=== PATIENT | male | born 1950 | race Caucasian/White ===

== ENCOUNTER 2023-11-12 15:31 | Inpatient (IN) | payer MEDICARE ==
--- NOTE | 2023-11-12 16:17 | ED ---
General Adult HPI - General Chief complaint: Dizziness Stated complaint: Dizziness-sent by Time Seen by Provider: 11/12/23 16:08 Source: patient Mode of arrival: wheelchair - History of Present Illness Initial comments: Dictation was produced using [employer] dictation software. please excuse any grammatical, word or spelling errors. Chief Complaint: 73-year-old male presents to the emergency department for 2 to 3 weeks of vertigo History of Present Illness: Patient 73-year-old male he has been working with his primary care doctor regarding his dizziness. 2 weeks ago he was seen at [facility] for dizziness. He was discharged. He did follow-up with his primary care doctor. Primary care doctor instructed patient that if his dizziness did not get any better that he come to the emergency department. Patient had conversation with his PCP yesterday who then told him that he should come to the ER. Patient states that he has sensation of the room spinning at a ll times including at rest. Denies any headache. No numbness tingling paresthesias arms or legs. He has suffered a few falls where he did strike his head. Lives at home with 1 family member. Patient denies any nausea or vomiting. The ROS documented in this emergency department record has been reviewed and confirmed by me. Those systems with pertinent positive or negative responses have been documented in the HPI. All other systems are other negative and/or noncontributory. - Related Data Allergies Allergy/AdvReac Type Severity Reaction Status Date / Time No Known Allergies Allergy Verified 11/12/23 16:05 Review of Systems ROS Statement: Those systems with pertinent positive or pertinent negative responses have been documented in the HPI. ROS Other: All systems not noted in ROS Statement are negative. Past Medical History Past Medical History: Diabetes Mellitus, Hyperlipidemia, Hypertension History of Any Multi-Drug Resistant Organisms: None Reported Past Surgical History: Coronary Bypass/CABG Past Psychological History: No Psychological Hx Reported Smoking Status: Current every day smoker Past Alcohol Use History: None Reported Past Drug Use History: None Reported General Exam - General Exam Comments Initial Comments: PHYSICAL EXAM: General Impression: Alert and oriented x3, not in acute distress HEENT: Normocephalic atraumatic, extra-ocular movements intact, pupils equal and reactive to light bilaterally, mucous membranes moist. Cardiovascular: Heart regular rate and rhythm Chest: Able to complete full sentences, no retractions, no tachypnea Abdomen: abdomen soft, non-tender, non-distended, no organomegaly Musculoskeletal: Pulses present and equal in all extremities, no peripheral edema Motor: no focal deficits noted Neurological: CN II-XII grossly intact, no focal motor or sensory deficits noted, mild extremity ataxia, no nystagmus Skin: Intact with no visualized rashes Psych: Normal affect and mood Course Vital Signs 11/12/23 11/12/23 11/12/23 16:00 16:27 17:00 Temperature 98 F Pulse Rate 77 69 64 Respiratory 18 18 14 Rate Blood Pressure 131/80 146/87 142/87 O2 Sat by Pulse 99 99 96 Oximetry EKG Findings - EKG Comments: EKG Findings:: My EKG interpretation: Ventricular rate 71, sinus rhythm,. 198, QRS 100, QTc 397. Overall, this EKG is unremarkable Medical Decision Making - Medical Decision Making Was pt. sent in by a medical professional or institution (, PA, OUTSIDE INSTALLATION MACHINIST, urgent care, hospital, or custodial...) When possible be specific @ -No Did you speak to anyone other than the patient for history (EMS, parent, family, police, friend...)? What history was obtained from this source @ -No Did you review nursing and triage notes (agree or disagree)? Why? @ -I reviewed and agree with nursing and triage notes Were old charts reviewed (outside hosp., previous admission, EMS record, old EKG, old radiological studies, urgent care reports/EKG's, custodial records)? Report findings @ -No old charts were reviewed Differential Diagnosis (chest pain, altered mental status, abdominal pain women, abdominal pain men, vaginal bleeding, musculoskeletal, weakness, fever, dyspnea, syncope, headache, dizziness, GI bleed, back pain, seizure, CVA, palpatations, mental health)? @ -Differential Dizziness: Benign paroxysmal positional Vertigo, Menieres disease, otitis media, acoustic neuroma, vertebrobasilar insufficiency, cerebellar stroke, encephalitis, hypovolemic, arrhythmia, coronary artery syndrome, anemia, this is not meant to be an all-inclusive list EKG interpreted by me (3pts min.). @ -See above X-rays interpreted by me (1pt min.). @ -None done CT interpreted by me (1pt min.). @ -CT brain is unremarkable U/S interpreted by me (1pt. min.). @ -None done What testing was considered but not performed or refused? (CT, X-rays, U/S, labs)? Why? @ -None What meds were considered but not given or refused? Why? @ -None Did you discuss the management of the patient with other professionals (professionals i.e. , PA, OUTSIDE INSTALLATION MACHINIST, lab, RT, psych nurse, web content & social media manager, crocheter, teacher, unclaimed property officer, case aide)? Give summary @ -Case discussed with hospitalist for admission Was smoking cessation discussed for >3mins.? @ -No Was critical care preformed (if so, how long)? @ -No Were there social determinants of health that impacted care today? How? (Homelessness, low income, unemployed, alcoholism, drug addiction, transportation, low edu. Level, literacy, decrease access to med. care, halfway, rehab)? @ -No Was there de-escalation of care discussed even if they declined (Discuss DNR or withdrawal of care, Hospice)? DNR status @ -No What co-morbidities impacted this encounter? (DM, HTN, Smoking, COPD, CAD, Cancer, CVA, ARF, Chemo, Hep., AIDS, mental health diagnosis, sleep apnea, morbid obesity)? @ -None Was patient admitted / discharged? Hospital course, mention meds given and route, prescriptions, significant lab abnormalities, going to OR and other pertinent info. @ -73-year-old male presents to the emergency department with subacute vertigo. Vital signs are stable. Patient instructed to come to the emergency department by his primary care doctor for persistent symptoms. Patient symptoms have been ongoing for [address] brain is negative. Labs are unremarkable. There is concern of brainstem or cerebellar type process. Patient will be admitted observation consultation to neurology. Undiagnosed new problem with uncertain prognosis? @ -No Drug Therapy requiring intensive monitoring for toxicity (Heparin, Nitro, Insulin, Cardizem)? @ -No Were any procedures done? @ -No Diagnosis/symptom? Acute, or Chronic, or Acute on Chronic? Uncomplicated (without systemic symptoms) or Complicated (systemic symptoms)? @ -Vertigo Side effects of treatment? @ -No Exacerbation, Progression, or Severe Exacerbation? @ -No Poses a threat to life or bodily function? How? (Chest pain, [place], [place], pneumonia, PE, COPD, DKA, ARF, appy, cholecystitis, CVA, Diverticulitis, Homicidal, Suicidal, threat to staff... and all critical care pts) @ -yes - Lab Data Result diagrams: 11/12/23 16:24 11/12/23 16:24 Lab Results 11/12/23 11/12/23 11/12/23 Range/Units 16:24 16:24 16:24 WBC 7.6 (3.8-10.6) k/uL RBC 5.52 (4.30-5.90) m/uL Hgb 16.9 (13.0-17.5) gm/dL Hct 49.3 (39.0-53.0) % MCV 89.3 (80.0-100.0) fL MCH 30.6 (25.0-35.0) pg MCHC 34.3 (31.0-37.0) g/dL RDW 12.6 (11.5-15.5) % Plt Count 315 (150-450) k/uL MPV 7.1 Neutrophils % 62 % Lymphocytes % 26 % Monocytes % 8 % Eosinophils % 1 % Basophils % 1 % Neutrophils # 4.7 (1.3-7.7) k/uL Lymphocytes # 2.0 (1.0-4.8) k/uL Monocytes # 0.6 (0-1.0) k/uL Eosinophils # 0.1 (0-0.7) k/uL Basophils # 0.0 (0-0.2) k/uL PT 10.4 (10.0-12.5) sec INR 0.9 (<1.2) APTT 23.8 (22.0-30.0) sec Sodium 138 (137-145) mmol/L Potassium 4.1 (3.5-5.1) mmol/L Chloride 104 (98-107) mmol/L Carbon Dioxide 24 (22-30) mmol/L Anion Gap 10 mmol/L BUN 11 (9-20) mg/dL Creatinine 0.50 L (0.66-1.25) mg/dL Est GFR (CKD-EPI)AfAm >90 (>60 ml/min/1.73 sqM) Est GFR (CKD-EPI)NonAf >90 (>60 ml/min/1.73 sqM) Glucose 371 H (74-99) mg/dL Calcium 9.6 (8.4-10.2) mg/dL Magnesium 1.6 (1.6-2.3) mg/dL Total Bilirubin 0.8 (0.2-1.3) mg/dL AST 18 (17-59) U/L ALT 14 (4-49) U/L Alkaline Phosphatase 121 (38-126) U/L Total Protein 7.1 (6.3-8.2) g/dL Albumin 4.3 (3.5-5.0) g/dL Disposition Clinical Impression: Vertigo Disposition: ADMITTED IP TO THIS [facility] Condition: Fair Referrals: Jimmy Olivas MD [Primary Care Provider] - 1-2 days Decision Time: 17:28
[2023-11-12 16:36] LABS: Basophils % (A) 1 %; Eosinophils # (A) 0.1 k/uL (0-0.7); Eosinophils % (A) 1 %; HCT 49.3 % (39.0-53.0); HGB 16.9 gm/dL (13.0-17.5); Lymphocytes % (A) 26 %; MCH 30.6 pg (25.0-35.0); MCHC 34.3 g/dL (31.0-37.0); MCV 89.3 fL (80.0-100.0); Mean Platelet Volume 7.1; Monocytes # (A) 0.6 k/uL (0-1.0); Monocytes % (A) 8 %; Neutrophils # (A) 4.7 k/uL (1.3-7.7); Neutrophils % (A) 62 %; Platelet Count 315 k/uL (150-450); RBC 5.52 m/uL (4.30-5.90); RDW 12.6 % (11.5-15.5); WBC 7.6 k/uL (3.8-10.6)
[2023-11-12 16:44] LABS: ALT 14 U/L (4-49); AST 18 U/L (17-59); African American GFR (CKD) >90 (>60 ml/min/1.73 sqM); Albumin 4.3 g/dL (3.5-5.0); Alkaline Phosphatase 121 U/L (38-126); Anion Gap 10 mmol/L; Blood Urea Nitrogen 11 mg/dL (9-20); Calcium 9.6 mg/dL (8.4-10.2); Carbon Dioxide 24 mmol/L (22-30); Chloride 104 mmol/L (98-107); Glucose 371 mg/dL (74-99); Magnesium 1.6 mg/dL (1.6-2.3); Non-African American GFR(CKD) >90 (>60 ml/min/1.73 sqM); Potassium 4.1 mmol/L (3.5-5.1); Sodium 138 mmol/L (137-145); Total Bilirubin 0.8 mg/dL (0.2-1.3); Total Protein 7.1 g/dL (6.3-8.2)
[2023-11-12 16:46] LABS: INR 0.9 (<1.2); Partial Thromboplastin Time 23.8 sec (22.0-30.0); Prothrombin Time 10.4 sec (10.0-12.5)
--- NOTE | 2023-11-12 16:51 | CT ---
EXAMINATION TYPE: CT brain wo con DATE OF EXAM: 11/12/2023 COMPARISON: None HISTORY: Vertigo CT DLP: 1148.4 mGycm Automated exposure control for dose reduction was used. FINDINGS: : The ventricles, basal cisterns and sulci over the convexities are within normal limits for the patien t's age and there is no mass effect or shift of midline structures. There is mild decreased density in the periventricular white matter consistent with mild chronic isch emic white matter demyelination. There is no acute intra or extra-axial hemorrhage The posterior fossa including the brainstem, fourth ventricle and cerebellar pontine angles appear no rmal. Intraorbital contents appear normal and symmetric. Visualized paranasal sinuses and mastoid air cells are well aerated. The calvarium is intact. IMPRESSION: Mild age-appropriate senescent changes. There is no acute bleed or mass effect.
[2023-11-12] MEDS ORDERED: NALOXONE 0.4 MG/ML 1 ML VIAL IV PRN (17:24)
[2023-11-12 18:01] LABS: Glucose,Whole Blood 317 mg/dL (70-110)
[2023-11-12] MEDS: INSULIN REGULAR 100 UNIT/ML VIAL (IV) IV ONE (18:09)
[2023-11-12] MEDS ORDERED: DEXTROSE 50% SYRINGE 50 ML IVP PRN ×2 (18:59)
[2023-11-12] MEDS: SODIUM CHLORIDE 0.9% 1,000 ML IV SCH (19:11)
[2023-11-12 20:13] LABS: Glucose,Whole Blood 223 mg/dL (70-110)
[2023-11-12] MEDS: INSULIN ASPART (NovoLOG) 100 UNIT/ML VIAL SQ SCH (20:38)
[2023-11-12] MEDS: MECLIZINE 25 MG TAB PO SCH (20:39)
[2023-11-13 05:52] LABS: Glucose,Whole Blood 283 mg/dL (70-110)
[2023-11-13] MEDS: ACETAMINOPHEN TAB 325 MG TAB PO PRN (06:13)
[2023-11-13] MEDS: metFORMIN 500 MG TAB PO SCH (09:04)
[2023-11-13] MEDS: ATORVASTATIN 40 MG TAB PO SCH (09:04)
[2023-11-13] MEDS: CITALOPRAM HYDROBROMIDE 20 MG TAB PO SCH (09:04)
[2023-11-13] MEDS: buPROPion XL 300 MG TAB.ER.24H PO SCH (09:04)
[2023-11-13 12:41] LABS: Glucose,Whole Blood 342 mg/dL (70-110)
--- NOTE | 2023-11-13 13:24 | P.HPIM ---
History of Present Illness H&P Date: 11/13/23 History of present illness; patient 73-year-old gentleman who presented to the ER for persistent dizziness patient stated that dizziness started 2 weeks ago. Patient states that he gets a sensation of the whole room spinning around him, at that time patient went to [facility] where patient was evaluated and later discharged. Patient was told to follow-up with his PCP with whom he had an appointment recently and told him that if this dizziness persist that he should come back to the ER. Patient is still complaining of persistent dizziness 50% with rest or with exertion. Patient has had falls with trauma to his head. There is no complaint loss of consciousness. There is no complaint of weakness of any extremity. Denies any jerking movement of any extremity. Denies any hearing loss. There is no complaint of tinnitus. Because of dizziness patient came to the ER Initial lab work done in the ER showed WBC 7.6, hemoglobin 16.9, platelet count 315, sodium 138, potassium 4.1, BUN 11, creatinine 0.5 glucose 371 magnesium 1.6 EKG done in the ER showed heart rate of 71 , no ST segment elevation or depression seen, no T-wave inversions seen. CT head done showed no acute intracranial process, showed mild age-appropriate senescent changes Patient admitted to internal medicine service REVIEW OF SYSTEMS: CONSTITUTIONAL: No fever, no malaise, no fatigue. HEENT: No recent visual problems or hearing problems. Denied any sore throat. CARDIOVASCULAR: No chest pain, orthopnea, PND, no palpitations, no syncope. PULMONARY: No shortness of breath, no cough, no hemoptysis. GASTROINTESTINAL: No diarrhea, no nausea, no vomiting, no abdominal pain. NEUROLOGICAL: As mentioned HPI HEMATOLOGICAL: Denies any bleeding or petechiae. GENITOURINARY: Denies any burning micturition, frequency, or urgency. MUSCULOSKELETAL/RHEUMATOLOGICAL: Denies any joint pain, swelling, or any muscle pain. ENDOCRINE: Denies any polyuria or polydipsia. The rest of the 14-point review of systems is negative. PHYSICAL EXAMINATION: GENERAL: The patient is alert and oriented x3, not in any acute distress. Well developed, well nourished. HEENT: Pupils are round and equally reacting to light. EOMI. No scleral icterus. No conjunctival pallor. Normocephalic, atraumatic. No pharyngeal erythema. No thyromegaly. CARDIOVASCULAR: S1 and S2 present. No murmurs, rubs, or gallops. PULMONARY: Chest is clear to auscultation, no wheezing or crackles. ABDOMEN: Soft, nontender, nondistended, normoactive bowel sounds. No palpable organomegaly. MUSCULOSKELETAL: No joint swelling or deformity. EXTREMITIES: No cyanosis, clubbing, or pedal edema. NEUROLOGICAL: Gross neurological examination did not reveal any focal deficits. SKIN: No rashes. Assessment and plan Persistent dizziness NON insulin-dependent diabetes mellitus Hyperlipidemia Monitor vital signs Monitor CBC Monitor CMP Continue telemetry monitoring Continue neurochecks Check HbA1c level Monitor blood sugar levels, continue sliding scale insulin Resume Lipitor Ordered PT and OT Consult neurology Labs and medication were reviewed.. Continue same treatment. Continue with symptomatic treatment. Resume home medication. Monitor labs and vitals. DVT and GI prophylaxis. Further recommendations as per clinical course of the patient Dictation was produced using [employer] dictation software. please excuse any grammatical, word or spelling errors. Past Medical History Past Medical History: Diabetes Mellitus, Hyperlipidemia, Hypertension History of Any Multi-Drug Resistant Organisms: None Reported Past Surgical History: Coronary Bypass/CABG Past Psychological History: No Psychological Hx Reported Smoking Status: Current every day smoker Past Alcohol Use History: None Reported Past Drug Use History: None Reported Medications and Allergies Home Medications Medication Instructions Recorded Confirmed Type Citalopram Hydrobromide [CeleXA] 20 mg PO DAILY 11/12/23 11/12/23 History Rosuvastatin [Crestor] 20 mg PO DAILY 11/12/23 11/12/23 History buPROPion XL [Wellbutrin XL] 300 mg PO DAILY 11/12/23 11/12/23 History metFORMIN HCL [Glucophage] 1,000 mg PO DAILY 11/12/23 11/12/23 History Allergies Allergy/AdvReac Type Severity Reaction Status Date / Time No Known Allergies Allergy Verified 11/12/23 17:37 Physical Exam Vitals: Vital Signs Temp Pulse Pulse Resp BP BP Pulse Ox 11/13/23 07:20 97.5 F L 57 L 16 152/77 99 11/13/23 02:33 98.2 F 68 15 154/85 97 11/12/23 20:38 70 20 11/12/23 18:31 98.0 F 70 20 138/81 97 11/12/23 18:03 97.8 F 71 16 146/90 97 11/12/23 17:00 64 14 142/87 96 11/12/23 16:27 69 18 146/87 99 11/12/23 16:00 98 F 77 18 131/80 99 Intake and Output 11/12/23 11/13/23 11/13/23 22:59 06:59 14:59 Output Total 100 Balance -100 Output: Urine 100 Other: Voiding Method Urinal # Voids 2 Weight 74.843 kg Results CBC & Chem 7: 11/12/23 16:24 11/12/23 16:24 Labs: Abnormal Lab Results - Last 24 Hours (Table) 11/12/23 11/12/23 11/12/23 Range/Units 16:24 18:00 20:12 Creatinine 0.50 L (0.66-1.25) mg/dL Glucose 371 H (74-99) mg/dL POC Glucose (mg/dL) 317 H 223 H (70-110) mg/dL 11/13/23 Range/Units 05:51 Creatinine (0.66-1.25) mg/dL Glucose (74-99) mg/dL POC Glucose (mg/dL) 283 H (70-110) mg/dL Thrombosis Risk Factor Assmnt - Choose All That Apply Each Risk Factor Represents 2 Points: Age 61-74 years Thrombosis Risk Factor Assessment Total Risk Factor Score: 2 Thrombosis Risk Factor Assessment Level: Low Risk
[2023-11-13 17:19] LABS: Glucose,Whole Blood 178 mg/dL (70-110)
[2023-11-13] MEDS: ASPIRIN 325 MG TAB PO SCH (18:54)
--- NOTE | 2023-11-13 19:42 | CT ---
EXAMINATION TYPE: CT angio head neck CT DLP: 347.4 mGycm, Automated exposure control for dose reduction was used. DATE OF EXAM: 11/13/2023 7:05 PM COMPARISON: CT 11/12/2023, MRI 11/13/2023.. CLINICAL INDICATION:Male, 73 years old with history of Vertigo; PHH, Vertigo. TECHNIQUE: Axially acquired helical CT angiogram of the head and neck was obtained with contrast. Axi al images are supplemented with 3D reconstructions and MIP images which were post-processed at an in dependent workstation. NASCET criteria used. Contrast used:65ml mL of Isovue 370 with IV Contrast, Oral contrast used: None. FINDINGS: CTA HEAD: No evidence of acute intracranial hemorrhage, mass effect, or midline shift. The ventricles, sulci, a nd cisterns are unremarkable. The visualized portions of the internal carotid arteries, middle cerebral arteries, anterior cerebral arteries, and posterior cerebral arteries are patent. The basilar and vertebral arteries are patent. CTA NECK: Right Carotid System: The common carotid artery and external carotid artery are patent. The carotid bifurcation demonstrate s no evidence of hemodynamically significant stenosis. The remaining portions of the internal carotid artery demonstrate normal size without significant narrowing. Left Carotid System: The common carotid artery and external carotid artery are patent. The carotid bifurcation demonstrate s no evidence of hemodynamically significant stenosis. The remaining portions of the internal carotid artery demonstrate normal size without significant narrowing. Vertebral arteries are patent without evidence hemodynamically significant stenosis. There is a three-vessel aortic arch. The origins of the great vessels are patent. No evidence of hemo dynamically significant stenosis. Upper thorax: Mild emphysema changes in lung apices. IMPRESSION: 1. No evidence of dissection of the cervical internal carotid arteries or vertebral arteries or any e vidence of significant stenosis at the carotid bifurcations. 2. No evidence of intracranial high-grade stenosis or intracranial aneurysm.
[2023-11-13 20:37] LABS: Glucose,Whole Blood 243 mg/dL (70-110)
[2023-11-14 06:07] LABS: Glucose,Whole Blood 214 mg/dL (70-110)
--- NOTE | 2023-11-14 09:20 | P.CNNES ---
History of Present Illness Consult date: 11/13/23 Requesting physician: Roldan Washington Reason for Consult: Vertigo History of Present Illness: Patient is a 73-year-old right-handed male with history of hypertension, diabetes, tobacco use, came to the hospital on 11/09/2023 at 6:01 PM for new onset dizziness going on for the last 2 weeks. Patient states that he had fell about 3-4 times. He hit his head a couple times. Patient states that dizziness started first before the fall. Every time he moves, the head spins and he feels sick to the stomach. Any movement or even sometimes just sitting there makes him dizzy. It will last for about 30 seconds and it slowly fades out. Patient denies any slurred speech, facial droop or any focal numbness or tingling. 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 No focal numbness or any visual problems. He denies any recent flu, cold or problem with the sinuses. He does have some chronic tinnitus. Vital signs on arrival blood pressure 131/80, pulse 77 temperature 98.0. EKG shows sinus rhythm. CT head revealed age-related changes. No acute bleed or mass effect. I personally reviewed CT head, agree with the findings. Visualized paranasal sinuses and external auditory canals are clear. Blood test revealed normal CBC, PT PTT, normal CMP with elevated blood sugars around 370s range. Patient has smoked 1 pack/day for 50 years, still smokes. Patient has hypertension, diabetes for 5 years. He lives with his sister. He does have a daughter and 4 grandchildren. Review of Systems Constitutional: Denies chills, Denies fever Eyes: denies blurred vision, denies diplopia, denies pain, denies loss of vision Ears: bilateral: tinnitus, deny: decreased hearing, ear discharge, earache Ears, nose, mouth and throat: Reports vertigo, Denies headache, Denies nasal congestion, Denies sore throat Cardiovascular: Denies chest pain, Denies shortness of breath Respiratory: Denies cough, Denies excessive sputum Gastrointestinal: Reports nausea, Denies abdominal pain, Denies diarrhea, Denies vomiting Genitourinary: Denies dysuria, Denies incontinence, Denies urinary frequency Musculoskeletal: Denies low back pain, Denies neck pain Integumentary: Denies pruritus, Denies rash Neurological: Reports as per HPI Psychiatric: Reports anxiety, Reports depression Endocrine: Reports fatigue, Denies weight change Hematologic/Lymphatic: Denies easy bleeding, Denies easy bruising Past Medical History Past Medical History: Diabetes Mellitus, Hyperlipidemia, Hypertension History of Any Multi-Drug Resistant Organisms: None Reported Past Surgical History: Coronary Bypass/CABG Past Psychological History: No Psychological Hx Reported Smoking Status: Current every day smoker Past Alcohol Use History: None Reported Past Drug Use History: None Reported Medications and Allergies Home Medications Medication Instructions Recorded Confirmed Type Citalopram Hydrobromide [CeleXA] 20 mg PO DAILY 11/12/23 11/12/23 History Rosuvastatin [Crestor] 20 mg PO DAILY 11/12/23 11/12/23 History buPROPion XL [Wellbutrin XL] 300 mg PO DAILY 11/12/23 11/12/23 History metFORMIN HCL [Glucophage] 1,000 mg PO DAILY 11/12/23 11/12/23 History Allergies Allergy/AdvReac Type Severity Reaction Status Date / Time No Known Allergies Allergy Verified 11/12/23 17:37 Physical Examination - Vital Signs Vital Signs: Vital Signs Temp Pulse Pulse Resp BP BP Pulse Ox 11/13/23 13:30 97.9 F 61 16 138/81 99 11/13/23 07:20 97.5 F L 57 L 16 152/77 99 11/13/23 02:33 98.2 F 68 15 154/85 97 11/12/23 20:38 70 20 11/12/23 18:31 98.0 F 70 20 138/81 97 11/12/23 18:03 97.8 F 71 16 146/90 97 Intake and Output 11/13/23 11/13/23 11/13/23 06:59 14:59 22:59 Other: # Voids 2 Patient is an elderly male, in no acute distress. Patient is alert awake oriented to time place and person. Speech and language functions are normal. Patient can name and repeat very well. No aphasia or dysarthria. Attention, concentration and fund of knowledge is adequate. On cranial nerve examination, pupils are equal, round and reacting to light, visual [place] are full on confrontation, with no neglect on double simultaneous stimulation. Extraocular muscles are intact with no nystagmus. Face is symmetric, tongue protrudes to the midline. Palatal elevation and sensation normal, hearing is decreased for finger rubbing bilaterally and shoulder shrug normal, facial sensation normal. On muscle strength testing, there is no pronator drift and the strength is normal in arms and legs distally and proximally. Deep tendon reflexes are symmetric trace in the upper extremities, absent in the lower limbs and plantars are flat. Sensory to touch is equal with no neglect on double simultaneous stimulation. Cerebellar function showed no definitive ataxia for [id number] testing, although patient had slight dysmetria towards nose on the right and towards the finger on the left. No dysdiadochokinesia. Patient has mild dysmetria of the right lower extremity for [id number] testing, but not on the left. Tone and bulk of muscles normal. Gait deferred.. On general examination, there is no carotid bruit or murmur, S1-S2 audible. Chest is clear on consultation. Abdomen is soft nontender. No organomegaly, bowel sounds present. Peripheral pulses are present. No peripheral edema. Results - Laboratory Findings CBC and BMP: 11/12/23 16:24 11/12/23 16:24 Abnormal Lab Findings: Abnormal Labs 11/12/23 11/12/23 11/12/23 16:24 16:24 18:00 Creatinine 0.50 L Glucose 371 H POC Glucose (mg/dL) 317 H Hemoglobin A1c 11.3 H 11/12/23 11/13/23 11/13/23 20:12 05:51 12:39 Creatinine Glucose POC Glucose (mg/dL) 223 H 283 H 342 H Hemoglobin A1c 11/13/23 17:17 Creatinine Glucose POC Glucose (mg/dL) 178 H Hemoglobin A1c Assessment and Plan Assessment: * New onset vertigo with some positional component. Denies any aural symptoms or any recent upper respiratory infection. Rule out cerebellar CVA versus peripheral vestibular dysfunction. * Hypertension * Diabetes, poorly controlled * Tobacco use Plan: MRI of the brain without contrast, evaluate for acute CVA 2-D echo with bubble study to rule out PFO CTA head and neck revealed no evidence of dissection of the cervical internal carotid arteries, vertebral arteries or any evidence of significant stenosis at the carotid bifurcation. No evidence of intracranial high-grade stenosis or in tracranial aneurysm. Fasting a.m. lipid panel. Patient on Crestor 20 mg daily at home. In hospital patient placed on Lipitor 40 mg. Hemoglobin A1c 11.3, consistent with poorly controlled diabetes. Recommend optimize diabetes to target A1c <7.0. B12, folate Optimize control of blood pressure. Patient has multiple vascular risk factors. Patient to be started on aspirin 325 mg daily. Neuro checks every 4 hours. Telemetry monitoring rule out any arrhythmia PT, OT, evaluate gait. Recommend complete tobacco cessation. DVT prophylaxis: Heparin 5000 units subcu every [address] Sanju Concepcion will resume neurology service from Wednesday. Thank you for the consult.
[2023-11-14] MEDS: HEPARIN SODIUM,PORCINE 5,000 UNIT/ML 1 ML VIAL SQ SCH (10:19)
[2023-11-14 10:34] LABS: Chol/HDL Ratio 3.12 Ratio; LDL Cholesterol,Calculated 51.7 mg/dL (0.0-131.0)
[2023-11-14 12:22] LABS: Glucose,Whole Blood 223 mg/dL (70-110)
--- NOTE | 2023-11-14 13:03 | P.PN ---
Subjective Progress Note Date: 11/14/23 patient 73-year-old gentleman who presented to the ER for persistent dizziness patient stated that dizziness started 2 weeks ago. Patient states that he gets a sensation of the whole room spinning around him, at that time patient went to [facility] where patient was evaluated and later discharged. Patient was told to follow-up with his PCP with whom he had an appointment recently and told him that if this dizziness persist that he should come back to the ER. Patient is still complaining of persistent dizziness 50% with rest or with exertion. Patient has had falls with trauma to his head. There is no complaint loss of consciousness. There is no complaint of weakness of any extremity. Denies any jerking movement of any extremity. Denies any hearing loss. There is no complaint of tinnitus. Because of dizziness patient came to the ER Initial lab work done in the ER showed WBC 7.6, hemoglobin 16.9, platelet count 315, sodium 138, potassium 4.1, BUN 11, creatinine 0.5 glucose 371 magnesium 1.6 EKG done in the ER showed heart rate of 71 , no ST segment elevation or depression seen, no T-wave inversions seen. CT head done showed no acute intracranial process, showed mild age-appropriate senescent changes Patient admitted to internal medicine service 11/13. Patient seen and examined. Dizziness has improved. REVIEW OF SYSTEMS: CONSTITUTIONAL: No fever, no malaise,. CARDIOVASCULAR: No chest pain, no palpitations, no syncope. PULMONARY: No shortness of breath, no cough, GASTROINTESTINAL: No diarrhea, no nausea, no vomiting, no abdominal pain. NEUROLOGICAL: No headaches, no weakness, PHYSICAL EXAMINATION: GENERAL: The patient is alert and oriented x3, not in any acute distress. Well developed, well nourished. HEENT: Pupils are round and equally reacting to light. EOMI. No scleral icterus. No conjunctival pallor. Normocephalic, atraumatic. No pharyngeal erythema. No thyromegaly. CARDIOVASCULAR: S1 and S2 present. No murmurs, rubs, or gallops. PULMONARY: Chest is clear to auscultation, no wheezing or crackles. ABDOMEN: Soft, nontender, nondistended, normoactive bowel sounds. No palpable organomegaly. MUSCULOSKELETAL: No joint swelling or deformity. EXTREMITIES: No cyanosis, clubbing, or pedal edema. NEUROLOGICAL: Gross neurological examination did not reveal any focal deficits. SKIN: No rashes. Assessment and plan Persistent dizziness NON insulin-dependent diabetes mellitus Hyperlipidemia Monitor vital signs Monitor CBC Monitor CMP Continue telemetry monitoring Continue neurochecks MRI brain ordered Ordered 2D echo Continue aspirin and Lipitor Monitor blood sugar levels, continue sliding scale insulin Neurology following Labs and medication were reviewed.. Continue same treatment. Continue with symptomatic treatment. Resume home medication. Monitor labs and vitals. DVT and GI prophylaxis. Further recommendations as per clinical course of the patient Dictation was produced using [employer] dictation software. please excuse any grammatical, word or spelling errors. Objective - Vital Signs Vital signs: Vital Signs Temp 98.3 F 11/14/23 07:20 Pulse 53 L 11/14/23 07:20 Resp 16 11/14/23 07:20 BP 181/92 11/14/23 07:20 Pulse Ox 98 11/14/23 07:20 FiO2 Intake & Output 11/13/23 11/14/23 11/14/23 18:59 06:59 18:59 Intake Total 354 Output Total 380 150 Balance -380 -150 354 Intake: Oral 354 Output: Urine 380 150 Other: Voiding Method Urinal # Voids 2 - Labs CBC & Chem 7: 11/12/23 16:24 11/12/23 16:24 Labs: Abnormal Lab Results - Last 24 Hours (Table) 11/13/23 11/13/23 11/13/23 Range/Units 12:39 17:17 20:36 POC Glucose (mg/dL) 342 H 178 H 243 H (70-110) mg/dL HDL Cholesterol (40.00-60.00) mg/dL 11/14/23 11/14/23 Range/Units 05:56 06:05 POC Glucose (mg/dL) 214 H (70-110) mg/dL HDL Cholesterol 34.30 L (40.00-60.00) mg/dL
[2023-11-14 17:26] LABS: Glucose,Whole Blood 210 mg/dL (70-110)
[2023-11-14 20:19] LABS: Glucose,Whole Blood 301 mg/dL (70-110)
--- NOTE | 2023-11-15 01:15 | P.PN ---
Subjective Progress Note Date: 11/14/23 Patient was seen for a follow-up. Patient states that he is feeling slightly more dizzy, nauseated. He did not sleep well, worse than yesterday. No new numbness tingling or any focal weakness. Objective - Vital Signs Vital signs: Vital Signs Temp 98.3 F 11/14/23 07:20 Pulse 53 L 11/14/23 07:20 Resp 16 11/14/23 07:20 BP 181/92 11/14/23 07:20 Pulse Ox 98 11/14/23 07:20 FiO2 Intake & Output 11/13/23 11/14/23 11/14/23 18:59 06:59 18:59 Intake Total 354 Output Total 380 150 Balance -380 -150 354 Intake: Oral 354 Output: Urine 380 150 Other: Voiding Method Urinal # Voids 2 - Exam Examination unchanged. Patient's speech and language functions are normal. Cranial nerves are normal. Visual cartagena are full. Face is symmetric. On muscle strength testing there is no pronator drift. The strength is normal. Cerebellar function showed questionable ataxia in the lower limbs. - Labs CBC & Chem 7: 11/12/23 16:24 11/12/23 16:24 Labs: Abnormal Lab Results - Last 24 Hours (Table) 11/13/23 11/13/23 11/13/23 Range/Units 12:39 17:17 20:36 POC Glucose (mg/dL) 342 H 178 H 243 H (70-110) mg/dL HDL Cholesterol (40.00-60.00) mg/dL 11/14/23 11/14/23 Range/Units 05:56 06:05 POC Glucose (mg/dL) 214 H (70-110) mg/dL HDL Cholesterol 34.30 L (40.00-60.00) mg/dL Assessment and Plan Assessment: * New onset vertigo with some positional component. Denies any aural symptoms or any recent upper respiratory infection. Rule out cerebellar CVA versus peripheral vestibular dysfunction. * Hypertension * Diabetes, poorly controlled * Tobacco use Plan: MRI of the brain without contrast, evaluate for acute CVA 2-D echo with bubble study to rule out PFO CTA head and neck revealed no evidence of dissection of the cervical internal carotid arteries, vertebral arteries or any evidence of significant stenosis at the carotid bifurcation. No evidence of intracranial high-grade stenosis or intracranial aneurysm. Fasting a.m. lipid panel. Patient on Crestor 20 mg daily at home. In hospital patient placed on Lipitor 40 mg. Hemoglobin A1c 11.3, consistent with poorly controlled diabetes. Recommend optimize diabetes to target A1c <7.0. B12 497, folate 10.50 Optimize control of blood pressure. Patient has multiple vascular risk factors. Patient to be started on aspirin 325 mg daily. Neuro checks every 4 hours. Telemetry monitoring rule out any arrhythmia PT, OT, evaluate gait. Recommend complete tobacco cessation. DVT prophylaxis: Heparin 5000 units subcu every [address] Sanju Concepcion will resume neurology service from Wednesday.
[2023-11-15 05:47] LABS: Glucose,Whole Blood 158 mg/dL (70-110)
--- NOTE | 2023-11-15 11:17 | MR ---
EXAMINATION TYPE: MR brain wo con DATE OF EXAM: 11/15/2023 COMPARISON: NONE HISTORY: Worsening vertigo TECHNIQUE: T1-weighted sagittal, T2, FLAIR, and diffusion axial, and T2 coronal coronal views of the brain are submitted. FINDINGS: There is a 2 mm area of abnormal signal involving the right cerebellar peduncle\cerebellar vermis con sistent with a tiny focal area of acute ischemia.. Areas of abnormal signal involving the delmy are mo re typical of remote ischemic changes. Moderate generalized degenerative changes. Abnormal signal in the white matter is nonspecific but mos t typical of remote microvascular ischemia. No midline shift or mass effect. Craniocervical junction maintained. Partially empty sella turcica. Orbits are symmetric. Mild changes of chronic sinusitis. IMPRESSION: 1. There is a tiny punctate area of acute ischemia measuring 2 to 3 mm within the right cerebellar pe duncle\cerebellar vermis. Report called to patient's nurse 11:10 AM 11/15/2023.
--- NOTE | 2023-11-15 12:17 | CA ---
Transthoracic Echo Report Name: Bronson Ponce Age: 73 Gender: M : 1950 Exam Date: 11/15/2023 07:36 Exam Location: [facility] Ht (in): 70 Wt (lb): 165 Ordering Physician: Jessee Stevens MD Attending/Referring Phys: [employer]er Osmar Lorenz RDCS Procedure CPT: Indications: dizziness Cardiac Hx: Technical Quality: Technically difficult study Contrast 1: Definity Total Dose (mL): 2 Contrast 2: Total Dose (mL): MEASUREMENTS (Male / Female) Normal Values 2D ECHO LV Diastolic Diameter PLAX 3.3 cm 4.2 - 5.9 / 3.9 - 5.3 cm LV Systolic Diameter PLAX 2.2 cm IVS Diastolic Thickness 1.2 cm 0.6 - 1.0 / 0.6 - 0.9 cm LVPW Diastolic Thickness 1.2 cm 0.6 - 1.0 / 0.6 - 0.9 cm LV Relative Wall Thickness 0.7 LVOT Diameter 2.1 cm Aortic Root Diameter 4.3 cm LA Systolic Diameter LX 3.8 cm 3.0 - 4.0 / 2.7 - 3.8 cm LA Volume 40.1 cm??? 18 - 58 / 22 - 52 cm??? LA Volume Index 20.8 cm???/m??? 16 - 28 cm???/m??? DOPPLER AV Peak Velocity 92.6 cm/s AV Peak Gradient 3.4 mmHg AV Mean Velocity 66.8 cm/s AV Mean Gradient 1.9 mmHg AV Velocity Time Integral 19.4 cm LVOT Peak Velocity 107.5 cm/s LVOT Peak Gradient 4.6 mmHg LVOT Velocity Time Integral 18.5 cm LVOT Stroke Volume 62.0 cm??? LVOT Stroke Volume Index 32.2 ml/m??? LVOT Cardiac Index 1994.5 cm???/min???m??? AV Area Cont Eq vti 3.2 cm??? AV Area Cont Eq pk 3.9 cm??? Mitral E Point Velocity 65.8 cm/s Mitral A Point Velocity 91.0 cm/s Mitral E to A Ratio 0.7 MV Deceleration Time 378.9 ms MV E' Velocity 7.0 cm/s Mitral E to MV E' Ratio 9.4 TR Peak Velocity 183.6 cm/s TR Peak Gradient 13.5 mmHg PV Peak Velocity 81.9 cm/s PV Peak Gradient 2.7 mmHg FINDINGS Left Ventricle Left ventricular ejection fraction is estimated at 55-60 %. Normal left ventricular systolic function with no obvious regional wall motion abnormalities. Left ventricular cavity size normal. Mildly increased left ventricular wall thickness. Right Ventricle Normal right ventricular size. Unable to estimate the right ventricular systolic pressure. Right Atrium Normal right atrial size. Left Atrium Normal left atrial size. Mitral Valve Trace mitral regurgitation.mitral annular calcification. Aortic Valve No aortic regurgitation.aortic valve not well visualized. Tricuspid Valve Trace tricuspid regurgitation.structurally normal tricuspid valve. Pulmonic Valve Pulmonic valve not well visualized. Pericardium No pericardial effusion. Aorta Normal size aortic root. CONCLUSIONS Technically difficult study. Definity ECHO contrast used for improved visualization of the endocardial borders (inadequate visualization of two or more contiguous segments). Normal left ventricle size and systolic function Limited Doppler study with trace mitral and tricuspid regurgitation Previewed by: Dr. Dennis Fitzgerald MD (Electronically Signed) Final Date: 15 November 2023 12:17
[2023-11-15 12:26] LABS: Glucose,Whole Blood 201 mg/dL (70-110)
[2023-11-15] MEDS: ONDANSETRON 4 MG/2 ML VIAL IVP PRN (12:36)
--- NOTE | 2023-11-15 13:30 | P.PN ---
Subjective Progress Note Date: 11/15/23 patient 73-year-old gentleman who presented to the ER for persistent dizziness patient stated that dizziness started 2 weeks ago. Patient states that he gets a sensation of the whole room spinning around him, at that time patient went to [facility] where patient was evaluated and later discharged. Patient was told to follow-up with his PCP with whom he had an appointment recently and told him that if this dizziness persist that he should come back to the ER. Patient is still complaining of persistent dizziness 50% with rest or with exertion. Patient has had falls with trauma to his head. There is no complaint loss of consciousness. There is no complaint of weakness of any extremity. Denies any jerking movement of any extremity. Denies any hearing loss. There is no complaint of tinnitus. Because of dizziness patient came to the ER Initial lab work done in the ER showed WBC 7.6, hemoglobin 16.9, platelet count 315, sodium 138, potassium 4.1, BUN 11, creatinine 0.5 glucose 371 magnesium 1.6 EKG done in the ER showed heart rate of 71 , no ST segment elevation or depression seen, no T-wave inversions seen. CT head done showed no acute intracranial process, showed mild age-appropriate senescent changes Patient admitted to internal medicine service 11/13. Patient seen and examined. Dizziness has improved. 11/14. Patient seen and examined. MRI brain done showed tiny punctate area of acute ischemia within the right cerebellar peduncle/cerebellar vermis. 2D echo done showed normal left ventricular size systolic function, trace mitral and tricuspid regurg. States he feels better. REVIEW OF SYSTEMS: CONSTITUTIONAL: No fever, no malaise,. CARDIOVASCULAR: No chest pain, no palpitations, no syncope. PULMONARY: No shortness of breath, no cough, GASTROINTESTINAL: No diarrhea, no nausea, no vomiting, no abdominal pain. NEUROLOGICAL: No headaches, no weakness, PHYSICAL EXAMINATION: GENERAL: The patient is alert and oriented x3, not in any acute distress. Well developed, well nourished. HEENT: Pupils are round and equally reacting to light. EOMI. No scleral icterus. No conjunctival pallor. Normocephalic, atraumatic. No pharyngeal erythema. No thyromegaly. CARDIOVASCULAR: S1 and S2 present. No murmurs, rubs, or gallops. PULMONARY: Chest is clear to auscultation, no wheezing or crackles. ABDOMEN: Soft, nontender, nondistended, normoactive bowel sounds. No palpable organomegaly. MUSCULOSKELETAL: No joint swelling or deformity. EXTREMITIES: No cyanosis, clubbing, or pedal edema. NEUROLOGICAL: Gross neurological examination did not reveal any focal deficits. SKIN: No rashes. Assessment and plan Persistent dizziness Acute CVA NON insulin-dependent diabetes mellitus Hyperlipidemia Monitor vital signs Monitor CBC Monitor CMP Continue telemetry monitoring Continue neurochecks MRI brain done showed tiny punctate area of acute ischemia within the right cerebellar peduncle/cerebellar vermis 2D echo done showed normal left ventricular size systolic function, trace mitral and tricuspid regurg. Continue aspirin and Lipitor Monitor blood sugar levels, continue sliding scale insulin Neurology following Labs and medication were reviewed.. Continue same treatment. Continue with symptomatic treatment. Resume home medication. Monitor labs and vitals. DVT and GI prophylaxis. Further recommendations as per clinical course of the patient Dictation was produced using [employer] dictation software. please excuse any grammatical, word or spelling errors. Objective - Vital Signs Vital signs: Vital Signs Temp 98.2 F 11/15/23 08:25 Pulse 84 11/15/23 08:25 Resp 17 11/15/23 08:25 BP 152/92 11/15/23 08:25 Pulse Ox 96 11/15/23 08:25 FiO2 Intake & Output 11/14/23 11/15/23 11/15/23 18:59 06:59 18:59 Intake Total 590 540 118 Output Total 475 1200 600 Balance 115 660 482 Intake: Oral 590 540 118 Output: Urine 475 1200 600 Other: Voiding Method Urinal Urinal # Bowel Movements 1 - Labs CBC & Chem 7: 11/12/23 16:24 11/12/23 16:24 Labs: Abnormal Lab Results - Last 24 Hours (Table) 11/14/23 11/14/23 11/15/23 Range/Units 17:24 20:14 05:45 POC Glucose (mg/dL) 210 H 301 H 158 H (70-110) mg/dL 11/15/23 Range/Units 12:24 POC Glucose (mg/dL) 201 H (70-110) mg/dL
--- NOTE | 2023-11-15 15:40 | P.PN ---
Subjective Progress Note Date: 11/15/23 I'm seeing the patient for the first time during this admission. Please refer to Dr. Vicente's note for further details. According to patient he stated having dizziness for the past 3 weeks progressively getting worse. It started with resting now it's involving resting and movement. He feels nauseous but denies any vomiting. Denies any focal weakness, dysphagia, any speech difficulty, any numbness, any visual disturbance. Patient does have underlying history of diabetes, hypertension, CABG and smokes 1 pack a day. Denies any history of stroke in the past. Objective - Vital Signs Vital signs: Vital Signs Temp 98.2 F 11/15/23 08:25 Pulse 84 11/15/23 08:25 Resp 17 11/15/23 08:25 BP 152/92 11/15/23 08:25 Pulse Ox 96 11/15/23 08:25 FiO2 Intake & Output 11/14/23 11/15/23 11/15/23 18:59 06:59 18:59 Intake Total 590 540 118 Output Total 475 1200 600 Balance 115 -660 -482 Intake: Oral 590 540 118 Output: Urine 475 1200 600 Other: Voiding Method Urinal Urinal # Bowel Movements 1 - Exam GENERAL: The patient is lying in bed and is not in acute distress. NEUROLOGICAL: Higher mental function: The patient is awake, alert, oriented to self, place and time. Patient is following commands. No aphasia and no neglect. Cranial nerves: The pupils are round, equal and reactive to light. Visual [place] are full to confrontation throughout. Extraocular movement is intact no nystagmus is noted. Facial sensation is normal to touch throughout. The facial strength is normal throughout. Hearing is normal bilaterally to hand rub. Tongue is midline and moved [id number] without any difficulty. No dysarthria is noted. Shoulder shrug is normal bilaterally. Motor: The strength is 5 over 5 throughout. Normal tone and bulk. Cerebellum: Normal finger to nose heel to solomon bilaterally. Sensation: Sensation is normal to touch throughout. 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 Present with dizziness for past 3 weeks. No IV thrombolytic since outside the window and risk outweigh benefits. * Vertigo due to above. * Hypertension * Diabetes, poorly controlled * History of CABG * Tobacco use Plan: MR the brain is reported as there is tiny punctate area of acute ischemic measuring 2-3 mm with right cerebellar peduncle/cerebellar vermis. I personally reviewed MRI and I feel it's cerebellar peduncle. Patient to be started on aspirin 325 mg daily. I also start the patient on Plavix 75 mg daily. Patient to be on dual antiplatelets and after 21 days stop Plavix but continue aspirin indefinitely. 2-D echo with bubble study to rule out PFO CTA head and neck revealed no evidence of dissection of the cervical internal carotid arteries, vertebral arteries or any evidence of significant stenosis at the carotid bifurcation. No evidence of intracranial high-grade stenosis or intracranial aneurysm. Fasting a.m. lipid panel: Triglyceride of 105, cholesterol is 107, LDL is 51 and HDL is 34.. Patient on Crestor 20 mg daily at home. In hospital patient placed on Lipitor 40 mg. Hemoglobin A1c 11.3, consistent with poorly controlled diabetes. Recommend optimize diabetes to target A1c <7.0. I increase the meclizine from 25 mg 1 tablet 3 times a day to 4 times a day. B12 497, folate 10.50 Optimize control of blood pressure. Neuro checks every 4 hours. Telemetry monitoring rule out any arrhythmia PT, OT, evaluate gait. Recommend complete tobacco cessation. DVT prophylaxis: Heparin 5000 units subcu every 8 hours The plan discussed with the patient and his nurse Time with Patient: Less than 30
[2023-11-15] MEDS: CLOPIDOGREL 75 MG TAB PO SCH (16:06)
[2023-11-15 17:26] VITALS: BMI 22.4
[2023-11-15 17:43] LABS: Glucose,Whole Blood 197 mg/dL (70-110)
[2023-11-15] MEDS: MECLIZINE 25 MG TAB PO SCH (17:52)
[2023-11-15 20:24] LABS: Glucose,Whole Blood 208 mg/dL (70-110)
[2023-11-16 00:10] LABS: Appearance,Urine Cloudy (Clear); Bacteria,Urine Few /hpf; Bilirubin,Urine Negative (Negative); Blood,Urine Large (Negative); Calcium Oxalate Crystals,Urine Few /hpf; Color,Urine Light Red; Glucose,Urine (UA) 3+ (Negative); Hyaline Casts,Urine 8 /lpf (0-2); Ketones,Urine Negative (Negative); Leukocyte Esterase,Urine Trace (Negative); Mucus,Urine Rare /hpf; Nitrite,Urine Negative (Negative); Protein,Urine 1+ (Negative); RBC,Urine >182 /hpf (0-5); Specific Gravity,Urine 1.017 (1.001-1.035); Squamous Epithelial Cell,Urine <1 /hpf (0-4); Urobilinogen,Urine <2.0 mg/dL (<2.0); WBC,Urine 22 /hpf (0-5)
[2023-11-16 05:46] LABS: Glucose,Whole Blood 237 mg/dL (70-110)
[2023-11-16 11:37] LABS: Glucose,Whole Blood 202 mg/dL (70-110)
--- NOTE | 2023-11-16 13:16 | P.PN ---
Subjective Progress Note Date: 11/16/23 I am following-up with patient and he continues to be dizzy. Objective - Vital Signs Vital signs: Vital Signs Temp 97.4 F L 11/16/23 08:21 Pulse 59 L 11/16/23 11:47 Resp 16 11/16/23 11:47 BP 158/83 11/16/23 11:47 Pulse Ox 97 11/16/23 11:47 FiO2 Intake & Output 11/15/23 11/16/23 11/16/23 18:59 06:59 18:59 Intake Total 236 240 128 Output Total 600 600 Balance -364 -360 128 Weight 74.843 kg Intake: IV 10 Invasive Line 1 10 Oral 236 240 118 Output: Urine 600 600 Other: Voiding Method Urinal Urinal Urinal - Exam GENERAL: The patient is lying in bed and is not in acute distress. NEUROLOGICAL: Higher mental function: The patient is sleepy but is awakeable to voice. Is oriented to self, place and time. Patient is following commands. No aphasia and no neglect. Cranial nerves: The pupils are round, equal and reactive to light. Visual [place] are full to confrontation throughout. Extraocular movement is intact no nystagmus is noted. Facial sensation is normal to touch throughout. The facial strength is normal throughout. Hearing is normal bilaterally to hand rub. Tongue is midline and moved [id number] without any difficulty. No dysarthria is noted. Shoulder shrug is normal bilaterally. Motor: The strength is 5 over 5 throughout. Normal tone and bulk. Cerebellum: Normal finger to nose heel to solomon bilaterally. Sensation: Sensation is normal to touch throughout. - Labs CBC & Chem 7: 11/12/23 16:24 11/12/23 16:24 Labs: Abnormal Lab Results - Last 24 Hours (Table) 11/15/23 11/15/23 11/15/23 Range/Units 17:42 20:18 22:38 POC Glucose (mg/dL) 197 H 208 H (70-110) mg/dL Urine Protein 1+ H (Negative) Urine Glucose (UA) 3+ H (Negative) Urine Blood Large H (Negative) Ur Leukocyte Esterase Trace H (Negative) Urine RBC >182 H (0-5) /hpf Urine WBC 22 H (0-5) /hpf Calcium Oxalate Crystal Few H (None) /hpf Urine Bacteria Few H (None) /hpf Hyaline Casts 8 H (0-2) /lpf Urine Mucus Rare H (None) /hpf 11/16/23 11/16/23 Range/Units 05:42 11:36 POC Glucose (mg/dL) 237 H 202 H (70-110) mg/dL Urine Protein (Negative) Urine Glucose (UA) (Negative) Urine Blood (Negative) Ur Leukocyte Esterase (Negative) Urine RBC (0-5) /hpf Urine WBC (0-5) /hpf Calcium Oxalate Crystal (None) /hpf Urine Bacteria (None) /hpf Hyaline Casts (0-2) /lpf Urine Mucus (None) /hpf Assessment and Plan Assessment: * 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 Present with dizziness for past 3 weeks. No IV thrombolytic since outside the window and risk outweigh benefits. * Vertigo due to above. * Hypertension * Diabetes, poorly controlled * History of CABG * Tobacco use Plan: MR the brain is reported as there is tiny punctate area of acute ischemic measuring 2-3 mm with right cerebellar peduncle/cerebellar vermis. I personally reviewed MRI and I feel it's cerebellar peduncle. Patient to be started on aspirin 325 mg daily. I also start the patient on Plavix 75 mg daily. Patient to be on dual antiplatelets and after 21 days stop Plavix but continue aspirin indefinitely. 2-D echo with bubble study to rule out PFO CTA head and neck revealed no evidence of dissection of the cervical internal carotid arteries, vertebral arteries or any evidence of significant stenosis at the carotid bifurcation. No evidence of intracranial high-grade stenosis or intracranial aneurysm. Fasting a.m. lipid panel: Triglyceride of 105, cholesterol is 107, LDL is 51 and HDL is 34.. Patient on Crestor 20 mg daily at home. In hospital patient placed on Lipitor 40 mg. Hemoglobin A1c 11.3, consistent with poorly controlled diabetes. Recommend optimize diabetes to target A1c <7.0. I increased the meclizine from 25 mg 1 tablet 4 times a day to 50mg 1 tab 4 times a day. I started him on IV saline 75cc/hour. I gave him one time Valium 5mg for his vertigo. B12 497, folate 10.50 Optimize control of blood pressure. Neuro checks every 4 hours. Telemetry monitoring rule out any arrhythmia PT, OT, evaluate gait. Recommend complete tobacco cessation. DVT prophylaxis: Heparin 5000 units subcu every 8 hours The plan discussed with the patient and his nurse. Time with Patient: Less than 30
[2023-11-16] MEDS: SODIUM CHLORIDE 0.9% 1,000 ML IV SCH (13:24)
--- NOTE | 2023-11-16 13:39 | P.PN ---
Subjective Progress Note Date: 11/16/23 patient 73-year-old gentleman who presented to the ER for persistent dizziness patient stated that dizziness started 2 weeks ago. Patient states that he gets a sensation of the whole room spinning around him, at that time patient went to [facility] where patient was evaluated and later discharged. Patient was told to follow-up with his PCP with whom he had an appointment recently and told him that if this dizziness persist that he should come back to the ER. Patient is still complaining of persistent dizziness 50% with rest or with exertion. Patient has had falls with trauma to his head. There is no complaint loss of consciousness. There is no complaint of weakness of any extremity. Denies any jerking movement of any extremity. Denies any hearing loss. There is no complaint of tinnitus. Because of dizziness patient came to the ER Initial lab work done in the ER showed WBC 7.6, hemoglobin 16.9, platelet count 315, sodium 138, potassium 4.1, BUN 11, creatinine 0.5 glucose 371 magnesium 1.6 EKG done in the ER showed heart rate of 71 , no ST segment elevation or depression seen, no T-wave inversions seen. CT head done showed no acute intracranial process, showed mild age-appropriate senescent changes Patient admitted to internal medicine service 11/13. Patient seen and examined. Dizziness has improved. 11/14. Patient seen and examined. MRI brain done showed tiny punctate area of acute ischemia within the right cerebellar peduncle/cerebellar vermis. 2D echo done showed normal left ventricular size systolic function, trace mitral and tricuspid regurg. States he feels better. 11/15. Patient seen and examined. Still have a lot of dizziness, dose of Antivert increased to 50 mg 4 times daily, neurology also added 1 dose of Valium REVIEW OF SYSTEMS: CONSTITUTIONAL: No fever, no malaise,. CARDIOVASCULAR: No chest pain, no palpitations, no syncope. PULMONARY: No shortness of breath, no cough, GASTROINTESTINAL: No diarrhea, no nausea, no vomiting, no abdominal pain. NEUROLOGICAL: No headaches, no weakness, PHYSICAL EXAMINATION: GENERAL: The patient is alert and oriented x3, not in any acute distress. Well developed, well nourished. HEENT: Pupils are round and equally reacting to light. EOMI. No scleral icterus. No conjunctival pallor. Normocephalic, atraumatic. No pharyngeal erythema. No thyromegaly. CARDIOVASCULAR: S1 and S2 present. No murmurs, rubs, or gallops. PULMONARY: Chest is clear to auscultation, no wheezing or crackles. ABDOMEN: Soft, nontender, nondistended, normoactive bowel sounds. No palpable organomegaly. MUSCULOSKELETAL: No joint swelling or deformity. EXTREMITIES: No cyanosis, clubbing, or pedal edema. NEUROLOGICAL: Gross neurological examination did not reveal any focal deficits. SKIN: No rashes. Assessment and plan Persistent dizziness Acute CVA NON insulin-dependent diabetes mellitus Hyperlipidemia Monitor vital signs Monitor CBC Monitor CMP Continue telemetry monitoring Continue neurochecks MRI brain done showed tiny punctate area of acute ischemia within the right cerebellar peduncle/cerebellar vermis 2D echo done showed normal left ventricular size systolic function, trace mitral and tricuspid regurg. Continue aspirin and Plavix for 21 days followed by aspirin indefinitely Continue Lipitor dose of Antivert increased to 50 mg 4 times daily, neurology also added 1 dose of Valium Monitor blood sugar levels, continue sliding scale insulin, start Levemir 5 units twice a day Neurology following PT and OT consulted Labs and medication were reviewed.. Continue same treatment. Continue with symptomatic treatment. Resume home medication. Monitor labs and vitals. DVT and GI prophylaxis. Further recommendations as per clinical course of the patient Dictation was produced using [employer] dictation software. please excuse any grammatical, word or spelling errors. Objective - Vital Signs Vital signs: Vital Signs Temp 97.4 F L 11/16/23 08:21 Pulse 68 11/16/23 08:21 Resp 16 11/16/23 08:21 BP 158/96 11/16/23 08:21 Pulse Ox 100 11/16/23 08:21 FiO2 Intake & Output 11/15/23 11/16/23 11/16/23 18:59 06:59 18:59 Intake Total 236 240 10 Output Total 600 600 Balance -364 -360 10 Weight 74.843 kg Intake: IV 10 Invasive Line 1 10 Oral 236 240 Output: Urine 600 600 Other: Voiding Method Urinal Urinal Urinal - Labs CBC & Chem 7: 11/12/23 16:24 11/12/23 16:24 Labs: Abnormal Lab Results - Last 24 Hours (Table) 03/25/24 03/25/24 03/25/24 Range/Units 12:24 17:42 20:18 POC Glucose (mg/dL) 201 H 197 H 208 H (70-110) mg/dL Urine Protein (Negative) Urine Glucose (UA) (Negative) Urine Blood (Negative) Ur Leukocyte Esterase (Negative) Urine RBC (0-5) /hpf Urine WBC (0-5) /hpf Calcium Oxalate Crystal (None) /hpf Urine Bacteria (None) /hpf Hyaline Casts (0-2) /lpf Urine Mucus (None) /hpf 11/15/23 11/16/23 Range/Units 22:38 05:42 POC Glucose (mg/dL) 237 H (70-110) mg/dL Urine Protein 1+ H (Negative) Urine Glucose (UA) 3+ H (Negative) Urine Blood Large H (Negative) Ur Leukocyte Esterase Trace H (Negative) Urine RBC >182 H (0-5) /hpf Urine WBC 22 H (0-5) /hpf Calcium Oxalate Crystal Few H (None) /hpf Urine Bacteria Few H (None) /hpf Hyaline Casts 8 H (0-2) /lpf Urine Mucus Rare H (None) /hpf
[2023-11-16 16:59] LABS: Glucose,Whole Blood 263 mg/dL (70-110)
[2023-11-16] MEDS: MECLIZINE 25 MG TAB PO SCH (17:08)
[2023-11-16 20:02] LABS: Glucose,Whole Blood 247 mg/dL (70-110)
[2023-11-16] MEDS: INSULIN DETEMIR (LEVEMIR) 100 UNIT/ML SYR SQ SCH (21:03)
[2023-11-17 05:25] VITALS: RESP 16
[2023-11-17 05:57] LABS: Glucose,Whole Blood 128 mg/dL (70-110)
[2023-11-17 11:48] LABS: Glucose,Whole Blood 169 mg/dL (70-110)
--- NOTE | 2023-11-17 15:05 | P.PN ---
Subjective Progress Note Date: 11/17/23 I am following-up with patient and he feels dizziness is improving. Denies new neurological issues. Objective - Vital Signs Vital signs: Vital Signs Temp 98.2 F 11/17/23 08:57 Pulse 64 11/17/23 12:09 Resp 16 11/17/23 12:09 BP 147/71 11/17/23 12:09 Pulse Ox 96 11/17/23 12:09 FiO2 Intake & Output 11/16/23 11/17/23 11/17/23 18:59 06:59 18:59 Intake Total 1236 250 Output Total 350 1650 Balance 886 -1650 250 Intake: IV 20 10 Invasive Line 1 20 Invasive Line 2 10 Oral 1216 240 Output: Urine 350 1650 Other: Voiding Method Urinal Urinal Urinal # Voids 1 - Exam GENERAL: The patient is lying in bed and is not in acute distress. NEUROLOGICAL: Higher mental function: The patient is sleepy but is awakeable to voice. Is oriented to self, place and time. Patient is following commands. No aphasia and no neglect. Cranial nerves: The pupils are round, equal and reactive to light. Visual [place] are full to confrontation throughout. Extraocular movement is intact no nystagmus is noted. Facial sensation is normal to touch throughout. The facial strength is normal throughout. Hearing is normal bilaterally to hand rub. Tongue is midline and moved [id number] without any difficulty. No dysarthria is noted. Shoulder shrug is normal bilaterally. Motor: The strength is 5 over 5 throughout. Normal tone and bulk. Cerebellum: Normal finger to nose heel to solomon bilaterally. Sensation: Sensation is normal to touch throughout. 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 Present with dizziness for past 3 weeks. No IV thrombolytic since outside the window and risk outweigh benefits. * Vertigo due to above. * Hypertension * Diabetes, poorly controlled * History of CABG * Tobacco use Plan: MR the brain is reported as there is tiny punctate area of acute ischemic kaela uring 2-3 mm with right cerebellar peduncle/cerebellar vermis. I personally reviewed MRI and I feel it's cerebellar peduncle. Patient to be started on aspirin 325 mg daily. I also start the patient on Plavix 75 mg daily. Patient to be on dual antiplatelets and after 21 days stop Plavix but continue aspirin indefinitely. 2-D echo with bubble study to rule out PFO CTA head and neck revealed no evidence of dissection of the cervical internal carotid arteries, vertebral arteries or any evidence of significant stenosis at the carotid bifurcation. No evidence of intracranial high-grade stenosis or intracranial aneurysm. Fasting a.m. lipid panel: Triglyceride of 105, cholesterol is 107, LDL is 51 and HDL is 34.. Patient on Crestor 20 mg daily at home. In hospital patient placed on Lipitor 40 mg. Hemoglobin A1c 11.3, consistent with poorly controlled diabetes. Recommend optimize diabetes to target A1c <7.0. I increased the meclizine from 25 mg 1 tablet 4 times a day to 50mg 1 tab 4 time s a day. I started him on IV saline 75cc/hour. I gave him one time Valium 5mg for his vertigo. B12 497, folate 10.50 Optimize control of blood pressure. Neuro checks every 4 hours. Telemetry monitoring rule out any arrhythmia PT, OT, evaluate gait. Recommend complete tobacco cessation. DVT prophylaxis: Heparin 5000 units subcu every 8 hours The plan discussed with the patient. Will follow-up with patient sporadically. Time with Patient: Less than 30
[2023-11-17 16:50] LABS: Glucose,Whole Blood 120 mg/dL (70-110)
--- NOTE | 2023-11-17 16:51 | P.PN ---
Progress Note - Text Progress Note Date: 11/17/23 Hospital course: 73-year-old gentleman who presented to the ER for persistent dizziness patient s tated that dizziness started 2 weeks ago. Patient states that he gets a sensation of the whole room spinning around him, at that time patient went to [facility] where patient was evaluated and later discharged. Patient was told to follow-up with his PCP with whom he had an appointment recently and told him that if this dizziness persist that he should come back to the ER. Patient is still complaining of persistent dizziness 50% with rest or with exertion. Patient has had falls with trauma to his head. There is no complaint loss of consciousness. There is no complaint of weakness of any extremity. Denies any jerking movement of any extremity. Denies any hearing loss. There is no complaint of tinnitus. Because of dizziness patient came to the ER Initial lab work done in the ER showed WBC 7.6, hemoglobin 16.9, platelet count 315, sodium 138, potassium 4.1, BUN 11, creatinine 0.5 glucose 371 magnesium 1.6 EKG done in the ER showed heart rate of 71 , no ST segment elevation or depression seen, no T-wave inversions seen. CT head done showed no acute intracranial process, showed mild age-appropriate senescent changes Patient admitted to internal medicine service 11/13. Patient seen and examined. Dizziness has improved. 11/14. Patient seen and examined. MRI brain done showed tiny punctate area of acute ischemia within the right cerebellar peduncle/cerebellar vermis. 2D echo done showed normal left ventricular size systolic function, trace mitral and tricuspid regurg. States he feels better. 11/15. Patient seen and examined. Still have a lot of dizziness, dose of Antivert increased to 50 mg 4 times daily, neurology also added 1 dose of Valium November 16: Dizziness is better. Using his walker. Plan for him is to return home. Sister is there. Patient will prefer to go tomorrow. Discussed with him. Eating well. Accu-Cheks remained a bit uncontrolled. Stop the small dose of Levemir. Increase metformin to 1000 mg twice daily. Also add Actos 30 mg a day. Active Medications Acetaminophen (Acetaminophen Tab 325 Mg Tab) 650 mg PO Q6HR PRN PRN Reason: Fever and/ or Pain Last Admin: 11/13/23 06:13 Dose: 650 mg Aspirin (Aspirin 325 Mg Tab) 325 mg PO DAILY [facility] Last Admin: 11/17/23 08:59 Dose: 325 mg Atorvastatin Calcium (Atorvastatin 40 Mg Tab) 40 mg PO DAILY [facility] Last Admin: 11/17/23 08:59 Dose: 40 mg Bupropion HCl (Bupropion Xl 300 Mg Tab.Er.24h) 300 mg PO DAILY [facility] Last Admin: 11/17/23 08:59 Dose: 300 mg Citalopram Hydrobromide (Citalopram Hydrobromide 20 Mg Tab) 20 mg PO DAILY [facility] Last Admin: 11/17/23 08:59 Dose: 20 mg Clopidogrel Bisulfate (Clopidogrel 75 Mg Tab) 75 mg PO DAILY [facility] Last Admin: 11/17/23 09:00 Dose: 75 mg Dextrose/Water (Dextrose 50% Syringe 50 Ml) 25 ml IVP PER PROTOCOL PRN; Protocol PRN Reason: Hypoglycemia Dextrose/Water (Dextrose 50% Syringe 50 Ml) 50 ml IVP PER PROTOCOL PRN; Protocol PRN Reason: Hypoglycemia Heparin Sodium (Porcine) (Heparin Sodium,Porcine 5,000 Unit/Ml 1 Ml Vial) 5,000 unit SQ Q8HR [facility] Last Admin: 11/17/23 15:00 Dose: Not Given Sodium Chloride (Saline 0.9%) 1,000 mls @ 20 mls/hr IV .Q24H [facility] Last Admin: 11/16/23 17:49 Dose: Not Given Sodium Chloride (Saline 0.9%) 1,000 mls @ 75 mls/hr IV .[id number] [facility] Last Admin: 11/17/23 06:13 Dose: Not Given Insulin Aspart (Insulin Aspart (Novolog) 100 Unit/Ml Vial) 0 unit SQ ACHS [facility]; Protocol Last Admin: 11/17/23 12:09 Dose: 1 unit Insulin Detemir (Insulin Detemir (Levemir) 100 Unit/Ml Syr) 5 unit SQ BID@0700,2100 [facility] Last Admin: 11/17/23 06:35 Dose: 5 unit Meclizine HCl (Meclizine 25 Mg Tab) 50 mg PO QID [facility] Last Admin: 11/17/23 12:08 Dose: 50 mg Metformin HCl (Metformin 500 Mg Tab) 1,000 mg PO DAILY [facility] Last Admin: 11/17/23 08:58 Dose: 1,000 mg Naloxone HCl (Naloxone 0.4 Mg/Ml 1 Ml Vial) 0.2 mg IV Q2M PRN PRN Reason: Opioid Reversal Ondansetron HCl (Ondansetron 4 Mg/2 Ml Vial) 4 mg IVP Q6HR PRN PRN Reason: Nausea And Vomiting Last Admin: 11/15/23 12:36 Dose: 4 mg On examination: VITAL SIGNS: [97.5, 69, 16, 143/81, 99% room air] GENERAL APPEARANCE: BMI 22.4, laying in bed awake a bit tired HEENT: Normal external appearance of nose and ear. Oral cavity normal EYES: Pupils equal. Conjunctiva normal. NECK: JVD not raised. Mass not palpable. RESPIRATORY: Respiratory effort normal. Lungs clear to auscultation. CARDIOVASCULAR: First and second sounds normal. No edema. ABDOMEN: Soft. Liver and spleen not palpable. No tenderness. No mass palpable. PSYCHIATRY: Alert and oriented x3. Mood and affect normal. INVESTIGATIONS, reviewed in the clinical context: Brain MRI: Tiny punctate area of acute ischemia 2 to 3 mm within the right cerebellar peduncle cerebellar vermis. November 11: White count 7.6 hemoglobin 16.9 platelets 315 potassium 4.1 creatinine 0.5 LDL 51.7 2D echo: EF 55 to 60% CT angio head and neck: Unremarkable CT brain: Age-related changes EKG tracing: Normal sinus rhythm. Right bundle mina block. Poor R wave progression anteriorly. Incomplete right bundle mina block. Assessment and plan -Acute CVA:Tiny punctate area of acute ischemia 2 to 3 mm within the right cerebellar peduncle cerebellar vermis Aspirin. Plavix. Lipitor. -Diabetes mellitus type 2: Uncontrolled Increase metformin to 1000 mg twice daily. Add Actos 30 mg a day -Hyperlipidemia Lipitor -Depression and anxiety Wellbutrin XL, Celexa -Chronic nicotine dependence, cigarette smoker Nicotine patch -Acute gait dysfunction secondary to dizziness from stroke Using a walker -Full code Discussed with patient. Dose of metformin and Actos suggested. Plan for discharge tomorrow. Stop Levemir.
[2023-11-17] MEDS: metFORMIN 500 MG TAB PO SCH (17:18)
[2023-11-17] MEDS: PIOGLITAZONE 30 MG TAB PO SCH (17:19)
[2023-11-17] MEDS: NICOTINE 21MG/24HR PATCH TRANSDERM SCH (17:20)
[2023-11-17 20:13] LABS: Glucose,Whole Blood 187 mg/dL (70-110)
[2023-11-17 21:00] LABS: Glucose,Whole Blood 275 mg/dL (70-110)
[2023-11-18 05:05] VITALS: TEMP 97.8
[2023-11-18 06:16] LABS: Glucose,Whole Blood 188 mg/dL (70-110)
[2023-11-18] MEDS: ASPIRIN 81 MG PO SCH (09:36)
[2023-11-18 11:26] LABS: Glucose,Whole Blood 131 mg/dL (70-110)
[2023-11-18 12:25] VITALS: BP 161/82; PULSE 61
--- NOTE | 2023-11-18 19:09 | P.DS ---
Providers Date of admission: 11/12/23 17:25 Expected date of discharge: 11/18/23 Attending physician: Riky Brown Consults: 11/12/23 17:24 Consult Physician Routine Consulting Provider: Boo Vicente Consult Reason/Comments: vertigo Do you want consulting provider notified?: Yes Primary care physician: [facility] Course: Hospital course: 73-year-old gentleman who presented to the ER for persistent dizziness patient stated that dizziness started 2 weeks ago. Patient states that he gets a sensation of the whole room spinning around him, at that time patient went to [facility] where patient was evaluated and later discharged. Patient was told to follow-up with his PCP with whom he had an appointment recently and told him that if this dizziness persist that he should come back to the ER. Patient is still complaining of persistent dizziness 50% with rest or with exertion. Patient has had falls with trauma to his head. There is no complaint loss of consciousness. There is no complaint of weakness of any extremity. Denies any jerking movement of any extremity. Denies any hearing loss. There is no complaint of tinnitus. Because of dizziness patient came to the ER Initial lab work done in the ER showed WBC 7.6, hemoglobin 16.9, platelet count 315, sodium 138, potassium 4.1, BUN 11, creatinine 0.5 glucose 371 magnesium 1.6 EKG done in the ER showed heart rate of 71 , no ST segment elevation or depression seen, no T-wave inversions seen. CT head done showed no acute intracranial process, showed mild age-appropriate senescent changes Patient admitted to internal medicine service 11/13. Patient seen and examined. Dizziness has improved. 11/14. Patient seen and examined. MRI brain done showed tiny punctate area of acute ischemia within the right cerebellar peduncle/cerebellar vermis. 2D echo done showed normal left ventricular size systolic function, trace mitral and tricuspid regurg. States he feels better. 11/15. Patient seen and examined. Still have a lot of dizziness, dose of Antivert increased to 50 mg 4 times daily, neurology also added 1 dose of Valium November 16: Dizziness is better. Using his walker. Plan for him is to return home. Sister is there. Patient will prefer to go tomorrow. Discussed with him. Eating well. Accu-Cheks remained a bit uncontrolled. Stop the small dose of Levemir. Increase metformin to 1000 mg twice daily. Also add Actos 30 mg a day. November 17: Will DC Antivert. Making patient sleepy. Not really indicated for cerebellar stroke. Discussed with the case repairer. Patient return to his sister's place. Outpatient social work. Outpatient follow-up with neurology. Care was discussed at length with the patient. And a social and human services assistant. And the nurse. Dose of metformin increased, and Actos was added. Discussion and discharge planning more than 35 minutes On examination: VITAL SIGNS: 97.8, 61, 16, 139 x 77, 96% room air GENERAL APPEARANCE: Comfortable HEENT: Normal external appearance of nose and ear. Oral cavity normal EYES: Pupils equal. Conjunctiva normal. NECK: JVD not raised. Mass not palpable. RESPIRATORY: Respiratory effort normal. Lungs clear to auscultation. CARDIOVASCULAR: First and second sounds normal. No edema. ABDOMEN: Soft. Liver and spleen not palpable. No tenderness. No mass palpable. PSYCHIATRY: Alert and oriented x3. Mood and affect normal. INVESTIGATIONS, reviewed in the clinical context: Brain MRI: Tiny punctate area of acute ischemia 2 to 3 mm within the right cerebellar peduncle cerebellar vermis. November 11: White count 7.6 hemoglobin 16.9 platelets 315 potassium 4.1 creatinine 0.5 LDL 51.7 2D echo: EF 55 to 60% CT angio head and neck: Unremarkable CT brain: Age-related changes EKG tracing: Normal sinus rhythm. Right bundle mina block. Poor R wave progression anteriorly. Incomplete right bundle mina block. Assessment and plan -Acute CVA:Tiny punctate area of acute ischemia 2 to 3 mm within the right cerebellar peduncle cerebellar vermis Aspirin. Plavix-for 3 weeks. Lipitor. Follow-up with Dr. Preet Jacobson: Neurology -Diabetes mellitus type 2: Uncontrolled Increase metformin to 1000 mg twice daily. Add Actos 30 mg a day -Hyperlipidemia Lipitor -Depression and anxiety Wellbutrin XL, Celexa -Chronic nicotine dependence, cigarette smoker Nicotine patch -Acute gait dysfunction secondary to dizziness from stroke Using a walker -Full code Disposition: To his sister's place. Plan - Discharge Summary Discharge Rx Participant: No New Discharge Prescriptions: New Nicotine 21Mg/24Hr Patch [Habitrol] 1 patch TRANSDERM DAILY #30 patch Pioglitazone [Actos] 30 mg PO DAILY #30 tab Aspirin 81 mg PO DAILY tab Clopidogrel [Plavix] 75 mg PO DAILY #21 tab Continue buPROPion XL [Wellbutrin XL] 300 mg PO DAILY Citalopram Hydrobromide [CeleXA] 20 mg PO DAILY Rosuvastatin [Crestor] 20 mg PO DAILY Changed metFORMIN HCL [Glucophage] 1,000 mg PO BID #60 tab Discharge Medication List Citalopram Hydrobromide [CeleXA] 20 mg PO DAILY 11/12/23 [History] Rosuvastatin [Crestor] 20 mg PO DAILY 11/12/23 [History] buPROPion XL [Wellbutrin XL] 300 mg PO DAILY 11/12/23 [History] Aspirin 81 mg PO DAILY tab 11/18/23 [Rx] Clopidogrel [Plavix] 75 mg PO DAILY #21 tab 11/18/23 [Rx] Nicotine 21Mg/24Hr Patch [Habitrol] 1 patch TRANSDERM DAILY #30 patch 11/18/23 [Rx] Pioglitazone [Actos] 30 mg PO DAILY #30 tab 11/18/23 [Rx] metFORMIN HCL [Glucophage] 1,000 mg PO BID #60 tab 11/18/23 [Rx] Follow up Appointment(s)/Referral(s): Aleks Brizuela MD [REFERRING] - 1 Week (The office will call with an appointment time and date. Spoke with Mariajose. ) Jimmy Olivas MD [Primary Care Provider] - 11/23/23 1:00 pm (you will see the Nurse Practitioner Mckenna. ) [facility], [NON-STAFF] - Patient Instructions/Handouts: Ischemic Stroke (DC) Discharge Disposition: HOME SELF-CARE
== END 2023-11-18 15:06 | disposition home or self-care (01) | DRG 66 ==
LOC: EC 15:31 → 6NMEDSUR 17:25 → 3SCARD 11-15 17:25
PROVIDERS: ADMIT Hospitalist; ATTEND Hospitalist
DX: I63.541 Cerebral infarction due to unspecified occlusion or stenosis of right cerebellar artery (principal); R42 Dizziness and giddiness; E78.5 Hyperlipidemia, unspecified; F17.210 Nicotine dependence, cigarettes, uncomplicated; I10 Essential (primary) hypertension; Z71.6 Tobacco abuse counseling; E11.42 Type 2 diabetes mellitus with diabetic polyneuropathy; E86.1 Hypovolemia; I08.1 Rheumatic disorders of both mitral and tricuspid valves; Z79.02 Long term (current) use of antithrombotics/antiplatelets; Z79.82 Long term (current) use of aspirin; Z79.84 Long term (current) use of oral hypoglycemic drugs; Z79.899 Other long term (current) drug therapy; Z91.81 History of falling; Z95.1 Presence of aortocoronary bypass graft; Z79.4 Long term (current) use of insulin
CPT/HCPCS: 36415; 70450; 70496; 70498; 70551; 80053; 80061; 81001; 82607; 82746; 83036; 83735; 84484; 85025; 85610; 85730; 93005; 93306; 99285

== ENCOUNTER 2024-10-04 17:02 | Inpatient (IN) | payer MEDICARE ==
--- NOTE | 2024-10-04 18:13 | ED ---
General Adult HPI - General Chief complaint: Weakness Stated complaint: falls Time Seen by Provider: 10/04/24 17:04 Source: patient Mode of arrival: EMS Limitations: altered mental status, physical limitation - History of Present Illness Initial comments: Dictation was produced using bttn dictation software. please excuse any grammatical, word or spelling errors. Chief Complaint: 73-year-old male with fall and weakness History of Present Illness: Patient 73-year-old male states that he was so weak today he suffered multiple falls. He is brought in by EMS after EMS was called by patient's family member. Patient denies any complaints. No obvious sick contacts. Denies any cough runny nose or sore throat. The ROS documented in this emergency department record has been reviewed and confirmed by me. Those systems with pertinent positive or negative responses have been documented in the HPI. All other systems are other negative and/or n oncontributory. - Related Data Home Medications Medication Instructions Recorded Confirmed Citalopram Hydrobromide [CeleXA] 20 mg PO DAILY 11/12/23 11/12/23 Rosuvastatin [Crestor] 20 mg PO DAILY 11/12/23 11/12/23 buPROPion XL [Wellbutrin XL] 300 mg PO DAILY 11/12/23 11/12/23 Previous Rx's Medication Instructions Recorded Aspirin 81 mg PO DAILY tab 11/18/23 Clopidogrel [Plavix] 75 mg PO DAILY #21 tab 11/18/23 Nicotine 21Mg/24Hr Patch [Habitrol] 1 patch TRANSDERM DAILY #30 patch 11/18/23 Pioglitazone [Actos] 30 mg PO DAILY #30 tab 11/18/23 metFORMIN HCL [Glucophage] 1,000 mg PO BID #60 tab 11/18/23 Allergies Allergy/AdvReac Type Severity Reaction Status Date / Time No Known Allergies Allergy Verified 10/04/24 17:10 Review of Systems ROS Statement: Those systems with pertinent positive or pertinent negative responses have been documented in the HPI. ROS Other: All systems not noted in ROS Statement are negative. Past Medical History Past Medical History: Diabetes Mellitus, Hyperlipidemia, Hypertension History of Any Multi-Drug Resistant Organisms: None Reported Past Surgical History: Coronary Bypass/CABG Past Psychological History: No Psychological Hx Reported Smoking Status: Current every day smoker Past Alcohol Use History: None Reported Past Drug Use History: None Reported General Exam - General Exam Comments Initial Comments: PHYSICAL EXAM: General Impression: Alert and oriented x3, not in acute distress, malaised HEENT: Normocephalic atraumatic, extra-ocular movements intact, pupils equal and reactive to light bilaterally, mucous membranes moist. Cardiovascular: Heart regular rate and rhythm Chest: Able to complete full sentences, no retractions, no tachypnea Abdomen: abdomen soft, non-tender, non-distended, no organomegaly Musculoskeletal: Pulses present and equal in all extremities, no peripheral edema Motor: no focal deficits noted Neurological: CN II-XII grossly intact, no focal motor or sensory deficits noted Skin: Intact with no visualized rashes Psych: Normal affect and mood Limitations: altered mental status, physical limitation Course Vital Signs 10/04/24 10/04/24 10/04/24 17:03 17:30 19:00 Temperature 100.8 F H Pulse Rate 90 97 95 Respiratory 19 18 24 Rate Blood Pressure 162/87 162/87 163/85 O2 Sat by Pulse 98 96 96 Oximetry 10/04/24 10/04/24 19:41 19:44 Temperature 99.6 F Pulse Rate 93 Respiratory 18 Rate Blood Pressure 157/88 O2 Sat by Pulse 97 Oximetry EKG Findings - EKG Comments: EKG Findings:: My EKG interpretation: Ventricular rate 93, sinus rhythm, MI interval 190, QRS 95, QTc 4 2. No MI prolongation, no QTC prolongation, no ST or T-wave changes noted. Overall, this EKG is unremarkable Medical Decision Making - Medical Decision Making Was pt. sent in by a medical professional or institution (, PA, PROFESSOR OF PHYSICAL EDUCATION, urgent care, hospital, or group home...) When possible be specific @ -No Did you speak to anyone other than the patient for history (EMS, parent, family, police, friend...)? What history was obtained from this source @ -No Did you review nursing and triage notes (agree or disagree)? Why? @ -I reviewed and agree with nursing and triage notes Were old charts reviewed (outside hosp., previous admission, EMS record, old EKG, old radiological studies, urgent care reports/EKG's, group home records)? Report findings @ -No old charts were reviewed Differential Diagnosis (chest pain, altered mental status, abdominal pain women, abdominal pain men, vaginal bleeding, musculoskeletal, weakness, fever, dyspnea, syncope, headache, dizziness, GI bleed, back pain, seizure, CVA, palpatations, mental health)? @ -Differential Fever: Pneumonia, viral URI, endocarditis, myocarditis, pericarditis, otitis, sinusitis, peritonsillar Abscess, retropharyngeal Abscess, epiglottitis, peritonitis, appendicitis, Lynn cystitis, diverticulitis, hepatitis, colitis, UTI, PID, TOA, pyelonephritis, prostatitis, epididymitis, meningitis, encephalitis, pulmonary embolism, CVA, thyroid storm, pancreatitis, adrenal c risis, cavernous sinus thrombosis, this is not meant to be an all-inclusive list. EKG interpreted by me (3pts min.). @ -See above X-rays interpreted by me (1pt min.). @ -Chest x-ray shows no acute processes. Pelvis x-ray shows no acute processes CT interpreted by me (1pt min.). @ -CT head and C-spine shows no acute processes U/S interpreted by me (1pt. min.). @ -None done What testing was considered but not performed or refused? (CT, X-rays, U/S, labs)? Why? @ -None What meds were considered but not given or refused? Why? @ -None Was smoking cessation discussed for >3mins.? @ -No Were there social determinants of health that impacted care today? How? (Homelessness, low income, unemployed, alcoholism, drug addiction, transportation, low edu. Level, literacy, decrease access to med. care, fci, rehab)? @ -No Was there de-escalation of care discussed even if they declined (Discuss DNR or withdrawal of care, Hospice)? DNR status @ -No What co-morbidities impacted this encounter? (DM, HTN, Smoking, COPD, CAD, Cancer, CVA, ARF, Chemo, Hep., AIDS, mental health diagnosis, sleep apnea, morbid obesity)? @ -None Was patient admitted / discharged? Hospital course, mention meds given and route, prescriptions, significant lab abnormalities, going to OR and other pertinent info. @ -73-year-old male with past medical history of diabetes, dyslipidemia and hypertension presents to the emergency department with weakness and fall. Vital signs upon arrival shows pyrexia of 100.8, rest of vital signs within acceptable limits. Patient not hypotensive. Laboratory evaluation obtained showing leukocytosis of 20.6, sodium 129. Viral testing is negative. Chest x- ray pelvis x-ray. Patient [place] any focal findings. Clinical presentation concerning with SIRS. Viral testing is negative. Patient does not meet sepsis criteria. Will be admitted with consultation to infectious disease. Case discussed with hospitalist for admission. Did you discuss the management of the patient with other professionals (professionals i.e. , PA, PROFESSOR OF PHYSICAL EDUCATION, lab, RT, psych nurse, social media sr strategy manager, flight superintendent, teacher, strategic debriefing officer, case investigator)? Give summary @ -See above Was critical care preformed (if so, how long)? @ -No Undiagnosed new problem with uncertain prognosis? @ -No Drug Therapy requiring intensive monitoring for toxicity (Heparin, Nitro, Insulin, Cardizem)? @ -No Were any procedures done? @ -No Diagnosis/symptom? Acute, or Chronic, or Acute on Chronic? Uncomplicated (without systemic symptoms) or Complicated (systemic symptoms)? @ -SIRS Side effects of treatment? @ -No Exacerbation, Progression, or Severe Exacerbation? @ -No Poses a threat to life or bodily function? How? (Chest pain, USA, PA, pneumonia, PE, COPD, DKA, ARF, appy, cholecystitis, CVA, Diverticulitis, Homicidal, Suicidal, threat to staff... and all critical care pts) @ -yes - Lab Data Result diagrams: 10/04/24 18:02 10/04/24 18:02 Lab Results 10/04/24 10/04/24 10/04/24 Range/Units 18:02 18:02 18:02 WBC 20.6 H (3.8-10.6) k/uL RBC 4.36 (4.30-5.90) m/uL Hgb 12.9 L (13.0-17.5) gm/dL Hct 38.2 L (39.0-53.0) % MCV 87.7 (80.0-100.0) fL MCH 29.5 (25.0-35.0) pg MCHC 33.6 (31.0-37.0) g/dL RDW 13.2 (11.5-15.5) % Plt Count 417 (150-450) k/uL MPV 8.0 Neutrophils % 86 % Lymphocytes % 6 % Monocytes % 7 % Eosinophils % 0 % Basophils % 0 % Neutrophils # 17.6 H (1.3-7.7) k/uL Lymphocytes # 1.3 (1.0-4.8) k/uL Monocytes # 1.5 H (0-1.0) k/uL Eosinophils # 0.0 (0-0.7) k/uL Basophils # 0.0 (0-0.2) k/uL Sodium 129 L (137-145) mmol/L Potassium 3.7 (3.5-5.1) mmol/L Chloride 93 L (98-107) mmol/L Carbon Dioxide 18 L (22-30) mmol/L Anion Gap 18 mmol/L BUN 20 (9-20) mg/dL Creatinine 0.75 (0.66-1.25) mg/dL Est GFR (CKD-EPI)AfAm >90 (>60 ml/min/1.73 sqM) Est GFR (CKD-EPI)NonAf >90 (>60 ml/min/1.73 sqM) Glucose 282 H (74-99) mg/dL Plasma Lactic Acid Alon 1.7 (0.7-2.0) mmol/L Calcium 8.3 L (8.4-10.2) mg/dL Magnesium 2.0 (1.6-2.3) mg/dL Troponin I (0.000-0.034) ng/mL Influenza Type A (PCR) (Not Detectd) Influenza Type B (PCR) (Not Detectd) RSV (PCR) (Not Detectd) SARS-CoV-2 (PCR) (Not Detectd) 10/04/24 10/04/24 Range/Units 18:02 18:02 WBC (3.8-10.6) k/uL RBC (4.30-5.90) m/uL Hgb (13.0-17.5) gm/dL Hct (39.0-53.0) % MCV (80.0-100.0) fL MCH (25.0-35.0) pg MCHC (31.0-37.0) g/dL RDW (11.5-15.5) % Plt Count (150-450) k/uL MPV Neutrophils % % Lymphocytes % % Monocytes % % Eosinophils % % Basophils % % Neutrophils # (1.3-7.7) k/uL Lymphocytes # (1.0-4.8) k/uL Monocytes # (0-1.0) k/uL Eosinophils # (0-0.7) k/uL Basophils # (0-0.2) k/uL Sodium (137-145) mmol/L Potassium (3.5-5.1) mmol/L Chloride (98-107) mmol/L Carbon Dioxide (22-30) mmol/L Anion Gap mmol/L BUN (9-20) mg/dL Creatinine (0.66-1.25) mg/dL Est GFR (CKD-EPI)AfAm (>60 ml/min/1.73 sqM) Est GFR (CKD-EPI)NonAf (>60 ml/min/1.73 sqM) Glucose (74-99) mg/dL Plasma Lactic Acid Alon (0.7-2.0) mmol/L Calcium (8.4-10.2) mg/dL Magnesium (1.6-2.3) mg/dL Troponin I <0.012 (0.000-0.034) ng/mL Influenza Type A (PCR) Not Detected (Not Detectd) Influenza Type B (PCR) Not Detected (Not Detectd) RSV (PCR) Not Detected (Not Detectd) SARS-CoV-2 (PCR) Not Detected (Not Detectd) Disposition Clinical Impression: SIRS (systemic inflammatory response syndrome) Disposition: ADMITTED IP TO THIS [facility] Condition: Fair Referrals: Jimmy Olivas MD [Primary Care Provider] - 1-2 days Decision Time: 19:58
[2024-10-04 18:20] LABS: Basophils % (A) 0 %; Eosinophils % (A) 0 %; HCT 38.2 % (39.0-53.0); HGB 12.9 gm/dL (13.0-17.5); Lymphocytes # (A) 1.3 k/uL (1.0-4.8); Lymphocytes % (A) 6 %; MCH 29.5 pg (25.0-35.0); MCHC 33.6 g/dL (31.0-37.0); MCV 87.7 fL (80.0-100.0); Monocytes # (A) 1.5 k/uL (0-1.0); Monocytes % (A) 7 %; Neutrophils # (A) 17.6 k/uL (1.3-7.7); Neutrophils % (A) 86 %; Platelet Count 417 k/uL (150-450); RBC 4.36 m/uL (4.30-5.90); RDW 13.2 % (11.5-15.5); WBC 20.6 k/uL (3.8-10.6)
[2024-10-04 18:32] LABS: African American GFR (CKD) >90 (>60 ml/min/1.73 sqM); Anion Gap 18 mmol/L; Blood Urea Nitrogen 20 mg/dL (9-20); Calcium 8.3 mg/dL (8.4-10.2); Carbon Dioxide 18 mmol/L (22-30); Chloride 93 mmol/L (98-107); Glucose 282 mg/dL (74-99); Non-African American GFR(CKD) >90 (>60 ml/min/1.73 sqM); Potassium 3.7 mmol/L (3.5-5.1); Sodium 129 mmol/L (137-145)
[2024-10-04] MEDS: ACETAMINOPHEN TAB 500 MG TAB PO STA (18:52)
[2024-10-04 18:54] LABS: Influenza A Not Detected (Not Detectd); Influenza B Not Detected (Not Detectd); RSV Not Detected (Not Detectd)
--- NOTE | 2024-10-04 18:59 | XR ---
EXAMINATION TYPE: XR pelvis AP view DATE OF EXAM: 10/04/2024 CLINICAL HISTORY: Falling injury with weakness TECHNIQUE: A single AP view of the pelvis is obtained. COMPARISON: None. FINDINGS: There is no acute displaced fracture evident in the pelvis. Right-sided protrusio acetabul a is seen. There is [id number] axial joint space loss and spurring in both hips. Pubic symphysi s is intact. Some narrowing of the bilateral sacroiliac joints is suspected. The overlying soft tiss ue appears unremarkable. IMPRESSION: There is no acute displaced fracture in the pelvis. [facility], , 10/04/2024 6:56 PM
--- NOTE | 2024-10-04 19:01 | XR ---
EXAMINATION TYPE: XR chest 1V portable DATE OF EXAM: 10/04/2024 COMPARISON: NONE CLINICAL INDICATION: Male, 73 years old with history of fall, weakness; TECHNIQUE: Single frontal view of the chest is obtained. FINDINGS: Overlying sternal wires are present. Mild interstitial prominence in the lower lungs could reflect edema and/or fibrosis There is no focal air space opacity, pleural effusion, or pneumothorax seen. The cardiac silhouette size is upper limits of normal. The osseous structures are deminerali zed. Old malunion fracture right proximal humerus is seen. IMPRESSION: Perhaps Mild bilateral interstitial edema. No suspicious acute focal infiltrate. [facility], , 10/04/2024 6:59 PM
--- NOTE | 2024-10-04 19:05 | CT ---
EXAMINATION TYPE: CT brain cspine wo con DATE OF EXAM: 10/04/2024 COMPARISON: CT brain November 12, 2023 HISTORY: Difficulty ambulating, 5-6 falls over the past couple days, hit head a couple time but not t hilda, on blood thinner, no LOC. Neck pain. CT DLP: 1359.1 mGycm. Automated Exposure Control for Dose Reduction was Utilized. TECHNIQUE: CT scan of the head and cervical spine are performed without contrast. FINDINGS: There is no acute intracranial hemorrhage or midline shift identified. There is mild/mode rate ventricular and sulcal prominence redemonstrated. There is mild/moderate low attenuation in the periventricular white matter redemonstrated. The calvarium is intact. The globes are intact and the v isualized sinuses are clear. Cervical spine is visualized in its entirety from C1 through upper thoracic levels and demonstrates s traightened alignment without evidence of acute fracture or dislocation. Prevertebral soft tissue ap pears within normal limits. The C1-C2 articulation shows asymmetric mild left-sided narrowing on cor onal images. Vertebral body heights are maintained. There are large anterior osteophytes including br idging osteophytes throughout majority of the cervical spine. There is well-corticated break with air at the anterior C3-C4 level favored old. Multilevel uncovertebral facet degenerative changes are pre sent bilaterally. Thyroid gland is normal in size. Visualized upper lungs show some emphysematous jose nge without pneumothorax IMPRESSION: 1. There is no acute fracture or dislocation evident in the cervical spine. 2. No acute intracranial hemorrhage or midline shift is seen. [facility], , 10/04/2024 7:03 PM
[2024-10-04] MEDS: SODIUM CHLORIDE 0.9% 1,000 ML IV STA (19:34)
[2024-10-04] MEDS ORDERED: NALOXONE 0.4 MG/ML 1 ML VIAL IV PRN (19:52)
[2024-10-04 20:13] LABS: Appearance,Urine Clear (Clear); Bacteria,Urine Rare /hpf; Bilirubin,Urine Negative (Negative); Blood,Urine Moderate (Negative); Color,Urine Light Yellow; Glucose,Urine (UA) 4+ (Negative); Leukocyte Esterase,Urine Small (Negative); Mucus,Urine Rare /hpf; Nitrite,Urine Positive (Negative); Protein,Urine 1+ (Negative); RBC,Urine 5 /hpf (0-5); Specific Gravity,Urine 1.018 (1.001-1.035); Urobilinogen,Urine <2.0 mg/dL (<2.0); WBC,Urine 33 /hpf (0-5)
[2024-10-04 20:17] LABS: Ketones,Urine 4+ (Negative)
[2024-10-04] MEDS: cefTRIAXone IN SWFI 1,000 MG/10 ML SYRINGE IVP STA (20:39)
[2024-10-04] MEDS: SODIUM CHLORIDE 0.9% 1,000 ML IV SCH (20:43)
[2024-10-04] MEDS ORDERED: TEMAZEPAM 15 MG CAP PO PRN (20:48)
[2024-10-04] MEDS ORDERED: CALCIUM CARBONATE 500 MG CHEWABLE PO PRN (20:49)
[2024-10-04] MEDS ORDERED: LACTULOSE 20 GM/30 ML CUP PO PRN (20:49)
[2024-10-04] MEDS ORDERED: ONDANSETRON 4 MG/2 ML VIAL IVP PRN (20:49)
--- NOTE | 2024-10-04 20:52 | P.HPIM ---
History of Present Illness H&P Date: 10/04/24 Chief Complaint: Falls 73-year-old gentleman, follows with Dr. Olivas. Chronic medical conditions include diabetes, hyperlipidemia, depression anxiety, CAD with bypass, cigarette smoker. 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 Patient stated patient yesterday morning started having falls. About 4 5 times. Even bumped his head. Decreased appetite. Noticed above fever. He denies any respiratory urinary symptoms. In the ER was found to have elevated white count and a UA came back to be positive. Review of systems: GEN.: Tired decreased appetite EYES: None HEENT: None NECK: None RESPIRATORY: None CARDIOVASCULAR: None GASTROINTESTINAL: None GENITOURINARY: None MUSCULOSKELETAL: Joint pains LYMPHATICS: None HEMATOLOGICAL: None PSYCHIATRY: None NEUROLOGICAL: Generalized weakness Social history: Lives alone. Smokes about half pack a day for many years. Physical examination: VITAL SIGNS: 100.8, 90, 19, 157 x 88, 97% room air] GENERAL: [BMI 24.4, tired and weak appearing laying in bed. EYES: Pupils equal. Conjunctiva gia l. HEENT: External appearance of nose and ears normal, oral cavity grossly normal. NECK: JVD not raised; masses not palpable. HEART: First and second heart sounds are normal; no edema. LUNGS: Respiratory rate normal; clear to auscultation. ABDOMEN: Soft, nontender, liver spleen not palpable, no masses palpable. PSYCH: Alert and oriented x3; mood and affect gia l. MUSCULOSKELETAL:No Clubbing/cyanosis;muscles-grossly intact. Some loss of muscle mass NEUROLOGICAL: Cranial nerves grossly intact; no facial asymmetry, power and sensation grossly intact. LYMPHATICS: No lymph nodes palpable in the axilla and neck INVESTIGATIONS, reviewed in the clinical context: October 04, 2024: White count 20.6 hemoglobin 12.9 platelets 417 sodium 129 potassium 3.7 bicarb 18 creatinine 0.75 blood glucose 282 Troponin I less than 0.012 Influenza type A, type B, RSV, COVID-19: Not detected UA positive for protein 1+ glucose 4+ ketone 4+ blood moderate urine nitrite positive leukoesterase small WBC 33 CT head cervical spine: Negative for fracture Chest x-ray film personally reviewed by me-some interstitial prominence Assessment and plan: -Acute UTI Patient does not complain of any obvious urine symptoms. Has a fever. Poor appetite. With falls. -Diabetes mellitus type 2: On oral hypoglycemic uncontrolled Increase metformin to 1000 mg twice daily. Add Actos 30 mg a day -Hyponatremia likely hypovolemia from decreased oral intake IV fluids. -Hyperlipidemia Lipitor -Depression and anxiety Wellbutrin XL, Celexa -Chronic nicotine dependence, cigarette smoker Nicotine patch -Full code Care was discussed with the patient. Fall precautions until more stabilized Past Medical History Past Medical History: Diabetes Mellitus, Hyperlipidemia, Hypertension History of Any Multi-Drug Resistant Organisms: None Reported Past Surgical History: Coronary Bypass/CABG Past Psychological History: No Psychological Hx Reported Smoking Status: Current every day smoker Past Alcohol Use History: None Reported Past Drug Use History: None Reported Medications and Allergies Home Medications Medication Instructions Recorded Confirmed Type Citalopram Hydrobromide [CeleXA] 20 mg PO DAILY 11/12/23 11/12/23 History Rosuvastatin [Crestor] 20 mg PO DAILY 11/12/23 11/12/23 History buPROPion XL [Wellbutrin XL] 300 mg PO DAILY 11/12/23 11/12/23 History Aspirin 81 mg PO DAILY tab 11/18/23 Rx Clopidogrel [Plavix] 75 mg PO DAILY #21 tab 11/18/23 Rx Nicotine 21Mg/24Hr Patch [Habitrol] 1 patch TRANSDERM DAILY #30 patch 11/18/23 Rx Pioglitazone [Actos] 30 mg PO DAILY #30 tab 11/18/23 Rx metFORMIN HCL [Glucophage] 1,000 mg PO BID #60 tab 11/18/23 Rx Allergies Allergy/AdvReac Type Severity Reaction Status Date / Time No Known Allergies Allergy Verified 10/04/24 17:10 Physical Exam Vitals: Vital Signs Temp Pulse Resp BP Pulse Ox 10/04/24 19:44 99.6 F 10/04/24 19:41 93 18 157/88 97 10/04/24 19:00 95 24 163/85 96 10/04/24 17:30 97 18 162/87 96 10/04/24 17:03 100.8 F H 90 19 162/87 98 Intake and Output 10/04/24 10/04/24 10/04/24 06:59 14:59 22:59 Other: Weight 81.647 kg Results CBC & Chem 7: 10/04/24 18:02 10/04/24 18:02 Labs: Abnormal Lab Results - Last 24 Hours (Table) 10/04/24 10/04/24 10/04/24 Range/Units 18:02 18:02 19:46 WBC 20.6 H (3.8-10.6) k/uL Hgb 12.9 L (13.0-17.5) gm/dL Hct 38.2 L (39.0-53.0) % Neutrophils # 17.6 H (1.3-7.7) k/uL Monocytes # 1.5 H (0-1.0) k/uL Sodium 129 L (137-145) mmol/L Chloride 93 L (98-107) mmol/L Carbon Dioxide 18 L (22-30) mmol/L Glucose 282 H (74-99) mg/dL Calcium 8.3 L (8.4-10.2) mg/dL Urine Protein 1+ H (Negative) Urine Glucose (UA) 4+ H (Negative) Urine Ketones 4+ H (Negative) Urine Blood Moderate H (Negative) Ur Leukocyte Esterase Small H (Negative) Urine WBC 33 H (0-5) /hpf Urine Bacteria Rare H (None) /hpf Urine Mucus Rare H (None) /hpf
[2024-10-04] MEDS: NICOTINE 14MG/24HR PATCH TRANSDERM SCH (21:25)
[2024-10-04] MEDS: LACTATED RINGERS 1,000 ML IV SCH (21:25)
[2024-10-04] MEDS: ENOXAPARIN 40 MG/0.4 ML SYRINGE SQ SCH (21:26)
[2024-10-05] MEDS: ALPRAZolam 0.25 MG TAB PO PRN (01:40)
[2024-10-05 05:48] LABS: Glucose,Whole Blood 273 mg/dL (70-110)
[2024-10-05] MEDS: buPROPion XL 300 MG TAB.ER.24H PO SCH (08:37)
[2024-10-05] MEDS: ATORVASTATIN 40 MG TAB PO SCH (08:38)
[2024-10-05] MEDS: FOLIC ACID 1 MG TAB PO SCH (08:38)
[2024-10-05] MEDS: ASPIRIN 81 MG PO SCH (08:40)
[2024-10-05] MEDS: PIOGLITAZONE 30 MG TAB PO SCH (08:40)
[2024-10-05] MEDS: ARIPiprazole 2 MG TAB PO SCH (08:40)
[2024-10-05] MEDS: CLOPIDOGREL 75 MG TAB PO SCH (08:40)
[2024-10-05] MEDS: metFORMIN 500 MG TAB PO SCH (08:41)
[2024-10-05 11:20] LABS: HGB 12.4 gm/dL (13.0-17.5); MCH 29.5 pg (25.0-35.0); MCHC 33.6 g/dL (31.0-37.0); MCV 87.9 fL (80.0-100.0); Mean Platelet Volume 7.2; Platelet Count 425 k/uL (150-450); RBC 4.21 m/uL (4.30-5.90); RDW 13.3 % (11.5-15.5); WBC 20.2 k/uL (3.8-10.6)
[2024-10-05] MEDS ORDERED: VANCOMYCIN IV PER PHARMACY 1 EACH MISC MISCELLANE PRN (11:33)
[2024-10-05 11:39] LABS: African American GFR (CKD) >90 (>60 ml/min/1.73 sqM); Anion Gap 12 mmol/L; Blood Urea Nitrogen 13 mg/dL (9-20); Calcium 8.2 mg/dL (8.4-10.2); Carbon Dioxide 23 mmol/L (22-30); Chloride 92 mmol/L (98-107); Glucose 298 mg/dL (74-99); Non-African American GFR(CKD) >90 (>60 ml/min/1.73 sqM); Potassium 3.2 mmol/L (3.5-5.1); Sodium 127 mmol/L (137-145)
[2024-10-05] MEDS: VANCOMYCIN 1,750 MG in SODIUM CHLORIDE 0.9% 500 ML 500 ML IVPB ONE (13:22)
[2024-10-05] MEDS: cloNIDine HCL 0.1 MG TAB PO SCH (17:48)
[2024-10-05] MEDS ORDERED: DEXTROSE 50% SYRINGE 50 ML IVP PRN ×2 (19:05)
--- NOTE | 2024-10-05 19:08 | P.PN ---
Progress Note - Text Progress Note Date: 10/05/24 Chief Complaint: Falls 73-year-old gentleman, follows with Dr. Olivas. Chronic medical conditions include diabetes, hyperlipidemia, depression anxiety, CAD with bypass, cigarette smoker. 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 Patient stated patient yesterday morning started having falls. About 4 5 times. Even bumped his head. Decreased appetite. Noticed above fever. He denies any respiratory urinary symptoms. In the ER was found to have elevated white count and a UA came back to be positive. October 05: Saw the patient this morning overflowing the ER. In a recliner. Tired. Spoke to the nurse. Poor balance. PT OT consulted e. On IV ceftriaxone. Blood cultures come back showing gram-positive cocci in clusters. Per ID vancomycin added. Active Medications Acetaminophen (Acetaminophen Tab 325 Mg Tab) 650 mg PO Q6HR PRN PRN Reason: Mild Pain or Fever > 100.5 Alprazolam (Alprazolam 0.25 Mg Tab) 0.25 mg PO Q6HR PRN PRN Reason: Anxiety Last Admin: 10/05/24 01:40 Dose: 0.25 mg Aripiprazole (Aripiprazole 2 Mg Tab) 2 mg PO DAILY [facility] Last Admin: 10/05/24 08:40 Dose: 2 mg Aspirin (Aspirin 81 Mg) 81 mg PO DAILY [facility] Last Admin: 10/05/24 08:40 Dose: 81 mg Atorvastatin Calcium (Atorvastatin 40 Mg Tab) 40 mg PO DAILY [facility] Last Admin: 10/05/24 08:38 Dose: 40 mg Bupropion HCl (Bupropion Xl 300 Mg Tab.Er.24h) 300 mg PO DAILY [facility] Last Admin: 10/05/24 08:37 Dose: 300 mg Calcium Carbonate/Glycine (Calcium Carbonate 500 Mg Chewable) 1,000 mg PO Q4HR PRN PRN Reason: Dyspepsia Clonidine (Clonidine Hcl 0.1 Mg Tab) 0.1 mg PO BID [facility] Last Admin: 10/05/24 17:48 Dose: 0.1 mg Clopidogrel Bisulfate (Clopidogrel 75 Mg Tab) 75 mg PO DAILY [facility] Last Admin: 10/05/24 08:40 Dose: 75 mg Enoxaparin Sodium (Enoxaparin 40 Mg/0.4 Ml Syringe) 40 mg SQ HS [facility] Last Admin: 10/04/24 21:26 Dose: 40 mg Folic Acid (Folic Acid 1 Mg Tab) 1 mg PO DAILY [facility] Last Admin: 10/05/24 08:39 Dose: 1 mg Lactated Ringer's (Lactated Ringers) 1,000 mls @ 125 mls/hr IV .Q8H [facility] Last Admin: 10/05/24 14:00 Dose: Not Given Ceftriaxone Sodium 1 gm/ (Sodium Chloride) 50 mls @ 100 mls/hr IVPB Q24HR [facility]; Protocol Last Admin: 10/05/24 08:41 Dose: 100 mls/hr Vancomycin HCl 1,500 mg/ (Sodium Chloride) 500 mls @ 167 mls/hr IVPB Q12H [facility] Lactulose (Lactulose 20 Gm/30 Ml Cup) 20 gm PO DAILY PRN PRN Reason: Constipation Metformin HCl (Metformin 500 Mg Tab) 1,000 mg PO BID-W/MEALS [facility] Last Admin: 10/05/24 17:48 Dose: 1,000 mg Naloxone HCl (Naloxone 0.4 Mg/Ml 1 Ml Vial) 0.2 mg IV Q2M PRN PRN Reason: Opioid Reversal Nicotine (Nicotine 14mg/24hr Patch) 1 patch TRANSDERM DAILY [facility] Last Admin: 10/05/24 08:51 Dose: Not Given Ondansetron HCl (Ondansetron 4 Mg/2 Ml Vial) 4 mg IVP Q8HR PRN PRN Reason: Nausea And Vomiting Pioglitazone HCl (Pioglitazone 30 Mg Tab) 30 mg PO DAILY [facility] Last Admin: 10/05/24 08:40 Dose: 30 mg Temazepam (Temazepam 15 Mg Cap) 30 mg PO HS PRN PRN Reason: Insomnia Social history: Lives alone. Smokes about half pack a day for many years. Physical examination: VITAL SIGNS: 99.4, 94, 20, 179 x 93, 97% room air GENERAL: [BMI 24.4, in a recliner, tired EYES: Pupils equal. Conjunctiva gia l. HEENT: External appearance of nose and ears normal, oral cavity grossly normal. NECK: JVD not raised; masses not palpable. HEART: First and second heart sounds are normal; no edema. LUNGS: Respiratory rate normal; clear to auscultation. ABDOMEN: Soft, nontender, liver spleen not palpable, no masses palpable. PSYCH: Alert and oriented x3; mood and affect gia l. MUSCULOSKELETAL:No Clubbing/cyanosis;muscles-grossly intact. Some loss of muscle mass INVESTIGATIONS, reviewed in the clinical context: October 05: White count 20.2 hemoglobin 12.4 platelets 425 sodium 127 potassium 3.2 creatinine 0.63 Blood culture: Gram-positive cocci in clusters October 04, 2024: White count 20.6 hemoglobin 12.9 platelets 417 sodium 129 potassium 3.7 bicarb 18 creatinine 0.75 blood glucose 282 Troponin I less than 0.012 Influenza type A, type B, RSV, COVID-19: Not detected UA positive for protein 1+ glucose 4+ ketone 4+ blood moderate urine nitrite positive leukoesterase small WBC 33 CT head cervical spine: Negative for fracture Chest x-ray film personally reviewed by me-some interstitial prominence Assessment and plan: -Acute UTI, with sepsis with blood cultures positive for gram-positive cocci in clusters: Worsening IV vancomycin. IV ceftriaxone -Sepsis with positive blood cultures: New diagnosis Antibiotics. Fluids. ID. -Diabetes mellitus type 2: On oral hypoglycemic uncontrolled Metformin and Actos. Follow Accu-Cheks -Hyponatremia likely hypovolemia from decreased oral intake: Slow to respond IV fluids. -Hyperlipidemia Lipitor -Essential hypertension, uncontrolled Add losartan 100 mg nightly -Depression and anxiety Wellbutrin XL, Celexa -Chronic nicotine dependence, cigarette smoker Nicotine patch -Gait dysfunction apparently from previous stroke. PT OT -Full code IV vancomycin added. PT OT. Add losartan 100 mg nightly Past Medical History Past Medical History: Diabetes Mellitus, Hyperlipidemia, Hypertension History of Any Multi-Drug Resistant Organisms: None Reported Past Surgical History: Coronary Bypass/CABG Past Psychological History: No Psychological Hx Reported Smoking Status: Current every day smoker Past Alcohol Use History: None Reported Past Drug Use History: None Reported
[2024-10-05] MEDS ORDERED: cloNIDine HCL 0.1 MG TAB PO SCH (21:00)
[2024-10-05 22:41] LABS: Glucose,Whole Blood 282 mg/dL (70-110)
[2024-10-05] MEDS: LOSARTAN 50 MG TAB PO SCH (23:02)
[2024-10-05] MEDS: INSULIN ASPART (NovoLOG) 100 UNIT/ML VIAL SQ SCH (23:02)
[2024-10-05] MEDS: ACETAMINOPHEN TAB 325 MG TAB PO PRN (23:11)
[2024-10-06] MEDS: VANCOMYCIN 1,500 MG in SODIUM CHLORIDE 0.9% 500 ML 500 ML IVPB SCH (02:33)
[2024-10-06 05:55] LABS: Glucose,Whole Blood 175 mg/dL (70-110)
--- NOTE | 2024-10-06 08:40 | P.CONS ---
History of Present Illness - Reason for Consult Consult date: 10/05/24 SIRS Requesting physician: Roldan Washington - Chief Complaint Weakness and fall x days - History of Present Illness Patient is a 74-year-old male with a past medical history significant for diabetes mellitus hypertension hyperlipidemia patient has been brought into the hospital for evaluation of weakness and apparently the patient did have multiple falls patient has developed a laceration to the left elbow area however the patient denies having any other injuries denies having any headache or URI symptoms no chest pain no shortness with occasional cough no nausea no vomiting no abdominal pain or any diarrhea patient on presentation to the hospital did have a temperature of 100.8 F patient was not tachycardic hypotensive or hypoxic and no need for supplemental oxygen patient did have white count of 20,000 with a left shift creatinine 0.75 urine has been mildly positive influenza RSV COVID testing was negative patient did have chest x-ray mild bilateral interstitial edema no focal infiltrate patient has been treated with Rocephin infectious disease was consulted for SIRS and management of antibiotic therapy Review of Systems Positive point and negatives has been mentioned in the HPI, complete review of systems was performed and all other systems are negative Past Medical History Past Medical History: Diabetes Mellitus, Hyperlipidemia, Hypertension History of Any Multi-Drug Resistant Organisms: None Reported Past Surgical History: Coronary Bypass/CABG Past Psychological History: No Psychological Hx Reported Smoking Status: Current every day smoker Past Alcohol Use History: None Reported Past Drug Use History: None Reported Medications and Allergies Home Medications Medication Instructions Recorded Confirmed Type Rosuvastatin [Crestor] 20 mg PO DAILY 11/12/23 10/04/24 History buPROPion XL [Wellbutrin XL] 300 mg PO DAILY 11/12/23 10/04/24 History Aspirin 81 mg PO DAILY tab 11/18/23 10/04/24 Rx Clopidogrel [Plavix] 75 mg PO DAILY #21 tab 11/18/23 10/04/24 Rx Pioglitazone [Actos] 30 mg PO DAILY #30 tab 11/18/23 10/04/24 Rx ARIPiprazole [Abilify] 2 mg PO DAILY 10/04/24 10/04/24 History Folic Acid 1 mg PO DAILY 10/04/24 10/04/24 History Temazepam [Restoril] 30 mg PO HS PRN 10/04/24 10/04/24 History metFORMIN HCL [Glucophage] 1,000 mg PO BID-W/MEALS 10/04/24 10/04/24 History Allergies Allergy/AdvReac Type Severity Reaction Status Date / Time No Known Allergies Allergy Verified 10/04/24 17:10 Physical Exam Vitals: Vital Signs Temp Pulse Resp BP Pulse Ox 10/05/24 08:35 98 18 179/84 97 10/05/24 05:41 98.3 F 10/05/24 05:39 97 18 148/88 98 10/05/24 01:44 98.8 F 87 18 181/99 96 10/04/24 22:00 79 16 143/84 10/04/24 19:44 99.6 F 10/04/24 19:41 93 18 157/88 97 10/04/24 19:00 95 24 163/85 96 10/04/24 17:30 97 18 162/87 96 10/04/24 17:03 100.8 F H 90 19 162/87 98 Intake and Output 10/04/24 10/05/24 10/05/24 22:59 06:59 14:59 Other: Weight 81.647 kg GENERAL DESCRIPTION: Elderly male lying in bed, no distress. No tachypnea or accessory muscle of respiration use. HEENT: Shows Pallor , no scleral icterus. Oral mucous membrane is dry. NECK: Trachea central, no thyromegaly. LUNGS: Unlabored breathing. Clear to auscultation anteriorly. No wheeze or crackle. HEART: S1, S2, regular rate and rhythm. No loud murmur ABDOMEN: Soft, no tenderness , guarding or rigidity, no organomegaly EXTREMITIES: Patient did have a laceration to the right elbow area with some erythema but no slough tissue SKIN: No rash, no masses palpable. NEUROLOGICAL: The patient is awake, alert, oriented x3, mood and affect normal. Results CBC & Chem 7: 10/05/24 10:59 10/05/24 10:59 Labs: Abnormal Lab Results - Last 24 Hours (Table) 10/04/24 10/04/24 10/04/24 Range/Units 18:02 18:02 19:46 WBC 20.6 H (3.8-10.6) k/uL RBC (4.30-5.90) m/uL Hgb 12.9 L (13.0-17.5) gm/dL Hct 38.2 L (39.0-53.0) % Neutrophils # 17.6 H (1.3-7.7) k/uL Monocytes # 1.5 H (0-1.0) k/uL Sodium 129 L (137-145) mmol/L Chloride 93 L (98-107) mmol/L Carbon Dioxide 18 L (22-30) mmol/L Glucose 282 H (74-99) mg/dL POC Glucose (mg/dL) (70-110) mg/dL Calcium 8.3 L (8.4-10.2) mg/dL Urine Protein 1+ H (Negative) Urine Glucose (UA) 4+ H (Negative) Urine Ketones 4+ H (Negative) Urine Blood Moderate H (Negative) Ur Leukocyte Esterase Small H (Negative) Urine WBC 33 H (0-5) /hpf Urine Bacteria Rare H (None) /hpf Urine Mucus Rare H (None) /hpf 10/05/24 10/05/24 Range/Units 05:47 10:59 WBC 20.2 H (3.8-10.6) k/uL RBC 4.21 L (4.30-5.90) m/uL Hgb 12.4 L (13.0-17.5) gm/dL Hct 37.0 L (39.0-53.0) % Neutrophils # (1.3-7.7) k/uL Monocytes # (0-1.0) k/uL Sodium (137-145) mmol/L Chloride (98-107) mmol/L Carbon Dioxide (22-30) mmol/L Glucose (74-99) mg/dL POC Glucose (mg/dL) 273 H (70-110) mg/dL Calcium (8.4-10.2) mg/dL Urine Protein (Negative) Urine Glucose (UA) (Negative) Urine Ketones (Negative) Urine Blood (Negative) Ur Leukocyte Esterase (Negative) Urine WBC (0-5) /hpf Urine Bacteria (None) /hpf Urine Mucus (None) /hpf Assessment and Plan (1) Sepsis Current Visit: Yes Status: Acute Code(s): A41.9 - SEPSIS, UNSPECIFIED ORGANISM SNOMED Code(s): 02336144 (2) UTI (urinary tract infection) Current Visit: Yes Status: Acute Code(s): N39.0 - URINARY TRACT INFECTION, SITE NOT SPECIFIED SNOMED Code(s): 09134651 (3) Right arm cellulitis Current Visit: Yes Status: Acute Code(s): L03.113 - CELLULITIS OF RIGHT UPPER LIMB SNOMED Code(s): 01285617553335651 (4) SIRS (systemic inflammatory response syndrome) Current Visit: Yes Status: Acute Code(s): R65.10 - SIRS OF NON-INFECTIOUS ORIGIN W/O ACUTE ORGAN DYSFUNCTION SNOMED Code(s): 529741207 Plan: 1patient is in the hospital with sepsis in this patient who did have fever elevated white count source possible urinary versus right elbow area laceration with secondary cellulitis and will need to cover for both gram-positive as well as gram-negative pathogen. 2local culture from the right elbow laceration has been obtained and results w ill follow blood cultures already obtained. 3patient to continue Rocephin we will add vancomycin pharmacy to dose while waiting for the workup to be completed. We will follow on clinical condition and cultures to further adjust medication if needed Thank you for this consultation we will follow the patient along with you Dictation was produced using [employer] dictation software. please excuse any gr ammatical, word or spelling errors. Time with Patient: Greater than 30
--- NOTE | 2024-10-06 11:22 | US ---
EXAMINATION TYPE: US kidneys/renal and bladder DATE OF EXAM: 10/06/2024 COMPARISON: NONE CLINICAL INDICATION: Male, 74 years old with history of uti and bacteremia; Portable ultrasound exam TECHNIQUE: Grayscale imaging of the bilateral kidneys and urinary bladder: FINDINGS: EXAM MEASUREMENTS: Right Kidney: 11.7 x 6.1 x 6.6 cm Left Kidney: 11.7 x 5.3 x 6.1 cm Right Kidney: No hydronephrosis or masses seen at time of scan, suboptimal due to bowel gas and patie nt position Left Kidney: Mid lower anechoic area = 3.2 x 3.4 x 2.5 cm Bladder: distended, right posterior internal echoes Bilateral Jets seen There is no evidence for hydronephrosis at this point in time. No nephrolithiasis is seen. No tien s are identified. The urinary bladder is anechoic. IMPRESSION: Questionable wall thickening of the right ureteral wall with debris correlate for cystitis. Consider CT urogram. [facility], , 10/06/2024 11:20 AM
--- NOTE | 2024-10-06 12:24 | P.PN ---
Progress Note - Text Progress Note Date: 10/06/24 Chief Complaint: Falls 73-year-old gentleman, follows with Dr. Olivas. Chronic medical conditions include diabetes, hyperlipidemia, depression anxiety, CAD with bypass, cigarette smoker. 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 Patient stated patient yesterday morning started having falls. About 4 5 times. Even bumped his head. Decreased appetite. Noticed above fever. He denies any respiratory urinary symptoms. In the ER was found to have elevated white count and a UA came back to be positive. October 05: Saw the patient this morning overflowing the ER. In a recliner. Tired. Spoke to the nurse. Poor balance. PT OT consulted e. On IV ceftriaxone. Blood cultures come back showing gram-positive cocci in clusters. Per ID vancomycin added. October 06: Had a good breakfast.Awaiting input from PT OT. Blood and urine cultures positive for presumptive Staph aureus. ID following. No fever Active Medications Acetaminophen (Acetaminophen Tab 325 Mg Tab) 650 mg PO Q6HR PRN PRN Reason: Mild Pain or Fever > 100.5 Last Admin: 10/05/24 23:11 Dose: 650 mg Alprazolam (Alprazolam 0.25 Mg Tab) 0.25 mg PO Q6HR PRN PRN Reason: Anxiety Last Admin: 10/05/24 23:13 Dose: 0.25 mg Aripiprazole (Aripiprazole 2 Mg Tab) 2 mg PO DAILY [facility] Last Admin: 10/06/24 08:41 Dose: 2 mg Aspirin (Aspirin 81 Mg) 81 mg PO DAILY [facility] Last Admin: 10/06/24 08:41 Dose: 81 mg Atorvastatin Calcium (Atorvastatin 40 Mg Tab) 40 mg PO DAILY [facility] Last Admin: 10/06/24 08:40 Dose: 40 mg Bupropion HCl (Bupropion Xl 300 Mg Tab.Er.24h) 300 mg PO DAILY [facility] Last Admin: 10/06/24 08:41 Dose: 300 mg Calcium Carbonate/Glycine (Calcium Carbonate 500 Mg Chewable) 1,000 mg PO Q4HR PRN PRN Reason: Dyspepsia Clopidogrel Bisulfate (Clopidogrel 75 Mg Tab) 75 mg PO DAILY [facility] Last Admin: 10/06/24 08:40 Dose: 75 mg Dextrose/Water (Dextrose 50% Syringe 50 Ml) 25 ml IVP PER PROTOCOL PRN; Protocol PRN Reason: Hypoglycemia Dextrose/Water (Dextrose 50% Syringe 50 Ml) 50 ml IVP PER PROTOCOL PRN; Protocol PRN Reason: Hypoglycemia Enoxaparin Sodium (Enoxaparin 40 Mg/0.4 Ml Syringe) 40 mg SQ HS [facility] Last Admin: 10/05/24 23:02 Dose: 40 mg Folic Acid (Folic Acid 1 Mg Tab) 1 mg PO DAILY [facility] Last Admin: 10/05/24 08:39 Dose: 1 mg Lactated Ringer's (Lactated Ringers) 1,000 mls @ 125 mls/hr IV .Q8H [facility] Last Admin: 10/06/24 05:56 Dose: Not Given Cefazolin Sodium 2 gm/ Sodium (Chloride) 50 mls @ 100 mls/hr IVPB Q8HR [facility]; Protocol Last Admin: 10/06/24 09:15 Dose: 100 mls/hr Insulin Aspart (Insulin Aspart (Novolog) 100 Unit/Ml Vial) 0 unit SQ ACHS [facility]; Protocol Last Admin: 10/06/24 05:56 Dose: 2 unit Lactulose (Lactulose 20 Gm/30 Ml Cup) 20 gm PO DAILY PRN PRN Reason: Constipation Losartan Potassium (Losartan 50 Mg Tab) 100 mg PO HS [facility] Last Admin: 10/05/24 23:02 Dose: 100 mg Metformin HCl (Metformin 500 Mg Tab) 1,000 mg PO BID-W/MEALS [facility] Last Admin: 10/06/24 05:57 Dose: 1,000 mg Naloxone HCl (Naloxone 0.4 Mg/Ml 1 Ml Vial) 0.2 mg IV Q2M PRN PRN Reason: Opioid Reversal Nicotine (Nicotine 14mg/24hr Patch) 1 patch TRANSDERM DAILY [facility] Last Admin: 10/06/24 08:49 Dose: Not Given Ondansetron HCl (Ondansetron 4 Mg/2 Ml Vial) 4 mg IVP Q8HR PRN PRN Reason: Nausea And Vomiting Pioglitazone HCl (Pioglitazone 30 Mg Tab) 30 mg PO DAILY [facility] Last Admin: 10/06/24 08:40 Dose: 30 mg Temazepam (Temazepam 15 Mg Cap) 30 mg PO HS PRN PRN Reason: Insomnia Social history: Lives alone. Smokes about half pack a day for many years. Physical examination: VITAL SIGNS: 98.2, 101, 16, 145 x 67, 95% room air GENERAL: [BMI 24.4, rest in bed EYES: Pupils equal. Conjunctiva gia l. HEENT: External appearance of nose and ears normal, oral cavity grossly normal. NECK: JVD not raised; masses not palpable. HEART: First and second heart sounds are normal; no edema. LUNGS: Respiratory rate normal; clear to auscultation. ABDOMEN: Soft, nontender, liver spleen not palpable, no masses palpable. PSYCH: Alert and oriented x3; mood and affect tired MUSCULOSKELETAL:No Clubbing/cyanosis;muscles-grossly intact. Some loss of muscle mass INVESTIGATIONS, reviewed in the clinical context: October 05: White count 20.2 hemoglobin 12.4 platelets 425 sodium 127 potassium 3.2 creatinine 0.63 Blood culture: Gram-positive cocci in clusters October 04, 2024: White count 20.6 hemoglobin 12.9 platelets 417 sodium 129 potassium 3.7 bicarb 18 creatinine 0.75 blood glucose 282 Troponin I less than 0.012 Influenza type A, type B, RSV, COVID-19: Not detected UA positive for protein 1+ glucose 4+ ketone 4+ blood moderate urine nitrite positive leukoesterase small WBC 33 CT head cervical spine: Negative for fracture Chest x-ray film personally reviewed by me-some interstitial prominence Assessment and plan: -Acute UTI, with sepsis with blood cultures positive for gram-positive cocci in clusters: IV vancomycin. IV ceftriaxone -Sepsis with positive blood cultures: Staph aureus Antibiotics. Fluids. ID. ID following -Diabetes mellitus type 2: On oral hypoglycemic uncontrolled Metformin and Actos. Follow Accu-Cheks -Hyponatremia likely hypovolemia from decreased oral intake: IV fluids. Fluid restriction 1500 cc a day -Hyperlipidemia Lipitor -Essential hypertension, uncontrolled Started on losartan 100 mg nightly Add Lopressor 25 twice daily today. -Depression and anxiety Wellbutrin XL, Celexa -Chronic nicotine dependence, cigarette smoker Nicotine patch -Gait dysfunction apparently from previous stroke. PT OT -Full code Blood pressure still running high. Add Lopressor 25 twice daily. Antibiotics per ID. Past Medical History Past Medical History: Diabetes Mellitus, Hyperlipidemia, Hypertension History of Any Multi-Drug Resistant Organisms: None Reported Past Surgical History: Coronary Bypass/CABG Past Psychological History: No Psychological Hx Reported Smoking Status: Current every day smoker Past Alcohol Use History: None Reported Past Drug Use History: None Reported
[2024-10-06 12:59] LABS: Glucose,Whole Blood 304 mg/dL (70-110)
--- NOTE | 2024-10-06 13:05 | P.PN ---
Subjective Progress Note Date: 10/06/24 Principal diagnosis: Reason for follow-up is MSSA UTI bacteremia Patient is a 74-year-old male with a past medical history significant for diabetes mellitus hypertension hyperlipidemia patient has been brought into the hospital for evaluation of weakness and apparently the patient did have multiple falls, he did have a positive UA and there was concern for possible l eft upper extremity cellulitis with a wound culture documented positive with MSSA both in the blood in the urine. On today's evaluation that is 10/06/2024, the patient continues to be afebrile, the patient is on room air and breathing comfortably, the Pt denies having any chest pain or cough, the patient denies having any abdominal pain no vomiting or any diarrhea has been reported by the nursing staff. Patient labs pending from this morning blood and urine with MSSA Objective - Vital Signs Vital signs: Vital Signs Temp 98.2 F 10/06/24 07:00 Pulse 101 H 10/06/24 08:00 Resp 16 10/06/24 08:00 BP 195/102 10/06/24 07:00 Pulse Ox 95 10/06/24 07:00 FiO2 Intake & Output 10/05/24 10/06/24 10/06/24 18:59 06:59 18:59 Weight 81.647 kg Other: Voiding Method Diaper Diaper # Voids 2 - Exam GENERAL DESCRIPTION: An elderly male lying in bed in no distress RESPIRATORY SYSTEM: Unlabored breathing , decreased breath sounds at bases HEART: S1 S2 regular rate and rhythm , ABDOMEN: Soft , no tenderness EXTREMITIES: No edema feet - Labs CBC & Chem 7: 10/05/24 10:59 10/05/24 10:59 Labs: Abnormal Lab Results - Last 24 Hours (Table) 10/05/24 10/06/24 10/06/24 Range/Units 22:40 05:49 12:50 POC Glucose (mg/dL) 282 H 175 H 304 H (70-110) mg/dL Microbiology - Last 24 Hours (Table) 10/04/24 19:46 Blood Culture Gram Stain - Preliminary Blood Blood Culture - Preliminary Presumptive Staph aureus Molecular ID 10/05/24 13:20 Gram Stain - Preliminary Elbow - Right 10/04/24 19:46 Urine Culture - Preliminary Urine,Voided Presumptive Staph aureus Assessment and Plan (1) Sepsis Current Visit: Yes Status: Acute Code(s): A41.9 - SEPSIS, UNSPECIFIED ORGANISM SNOMED Code(s): 44230167 (2) UTI (urinary tract infection) Current Visit: Yes Status: Acute Code(s): N39.0 - URINARY TRACT INFECTION, SITE NOT SPECIFIED SNOMED Code(s): 82656043 (3) Right arm cellulitis Current Visit: Yes Status: Acute Code(s): L03.113 - CELLULITIS OF RIGHT UPPER LIMB SNOMED Code(s): 94377012746069660 (4) SIRS (systemic inflammatory response syndrome) Current Visit: Yes Status: Acute Code(s): R65.10 - SIRS OF NON-INFECTIOUS ORIGIN W/O ACUTE ORGAN DYSFUNCTION SNOMED Code(s): 267379393 Plan: 1patient is in the hospital with sepsis in this patient who did have fever elevated white count source possible urinary versus right elbow area laceration with secondary cellulitis and will need to cover for both gram-positive as well as gram-negative pathogen. 2local culture from the right elbow laceration has been obtained a which are currently pending 3patient blood and urine cultures came back positive with MSSA ultrasound of the kidney bladder really did not show any hydronephrosis or nephrolithiasis 4patient Rocephin and vancomycin has been discontinued and the patient to be started on cefazolin blood culture will be repeated to document clearance of his bacteremia Dictation was produced using [employer] dictation software. please excuse any grammatical, word or spelling errors. Time with Patient: Less than 30
[2024-10-06] MEDS: METOPROLOL TARTRATE 25 MG TAB PO SCH (14:40)
[2024-10-06 17:13] LABS: Glucose,Whole Blood 196 mg/dL (70-110)
[2024-10-06 20:07] LABS: Glucose,Whole Blood 244 mg/dL (70-110)
[2024-10-07 05:50] LABS: Glucose,Whole Blood 266 mg/dL (70-110)
[2024-10-07 07:15] LABS: HCT 34.5 % (39.0-53.0); HGB 11.5 gm/dL (13.0-17.5); MCH 29.3 pg (25.0-35.0); MCHC 33.4 g/dL (31.0-37.0); MCV 87.9 fL (80.0-100.0); Mean Platelet Volume 7.1; Neutrophils % (A) 83 %; Platelet Count 484 k/uL (150-450); RBC 3.93 m/uL (4.30-5.90); RDW 13.4 % (11.5-15.5); WBC 15.5 k/uL (3.8-10.6)
[2024-10-07 07:16] LABS: Basophils # (A) 0.1 k/uL (0-0.2); Basophils % (A) 0 %; Eosinophils # (A) 0.1 k/uL (0-0.7); Eosinophils % (A) 1 %; Lymphocytes # (A) 1.6 k/uL (1.0-4.8); Lymphocytes % (A) 10 %; Monocytes # (A) 0.7 k/uL (0-1.0); Monocytes % (A) 4 %; Neutrophils # (A) 12.9 k/uL (1.3-7.7)
[2024-10-07 07:29] LABS: African American GFR (CKD) >90 (>60 ml/min/1.73 sqM); Anion Gap 9 mmol/L; Blood Urea Nitrogen 9 mg/dL (9-20); Carbon Dioxide 28 mmol/L (22-30); Chloride 93 mmol/L (98-107); Glucose 216 mg/dL (74-99); Non-African American GFR(CKD) >90 (>60 ml/min/1.73 sqM); Sodium 130 mmol/L (137-145)
[2024-10-07 12:34] LABS: Glucose,Whole Blood 341 mg/dL (70-110)
[2024-10-07] MEDS ORDERED: VANCOMYCIN TROUGH DUE 1 EACH MISC MISCELLANE ONE (13:00)
[2024-10-07 13:44] LABS: African American GFR (CKD) >90 (>60 ml/min/1.73 sqM); Non-African American GFR(CKD) >90 (>60 ml/min/1.73 sqM)
[2024-10-07] MEDS: METOPROLOL TARTRATE 25 MG TAB PO STA (13:51)
[2024-10-07] MEDS: glipiZIDE 10 MG TAB PO SCH (13:51)
--- NOTE | 2024-10-07 14:07 | P.PN ---
Subjective Progress Note Date: 10/07/24 Principal diagnosis: Reason for follow-up is MSSA UTI bacteremia Patient is a 74-year-old male with a past medical history significant for diabetes mellitus hypertension hyperlipidemia patient has been brought into the hospital for evaluation of weakness and apparently the patient did have multiple falls, he did have a positive UA and there was concern for possible l eft upper extremity cellulitis with a wound culture documented positive with MSSA both in the blood in the urine. On today's evaluation that is 10/07/2024, patient did not have any fever and denies any chills, patient is breathing comfortably on room air, patient with no chest pain or cough patient did not have any abdominal pain nausea vomiting or any loose stools. Patient white count is 15.5 creatinine 0.60 blood urine culture with MSSA right elbow culture also positive for Staph aureus Objective - Vital Signs Vital signs: Vital Signs Temp 98.0 F 10/07/24 07:00 Pulse 67 10/07/24 11:29 Resp 17 10/07/24 07:00 BP 158/74 10/07/24 11:29 Pulse Ox 97 10/07/24 07:00 FiO2 Intake & Output 10/06/24 10/07/24 10/07/24 18:59 06:59 18:59 Intake Total 500 Output Total 850 1300 1000 Balance -850 -800 -1000 Intake: Oral 500 Output: Urine 850 1300 1000 Other: Voiding Method Diaper External Catheter Diaper External Catheter # Voids 1 2 # Bowel Movements 1 1 - Exam GENERAL DESCRIPTION: An elderly male lying in bed in no distress RESPIRATORY SYSTEM: Unlabored breathing , decreased breath sounds at bases HEART: S1 S2 regular rate and rhythm , ABDOMEN: Soft , no tenderness EXTREMITIES: No edema feet - Labs CBC & Chem 7: 10/07/24 06:30 10/07/24 12:50 Labs: Abnormal Lab Results - Last 24 Hours (Table) 10/06/24 10/06/24 10/07/24 Range/Units 17:12 20:06 05:42 WBC (3.8-10.6) k/uL RBC (4.30-5.90) m/uL Hgb (13.0-17.5) gm/dL Hct (39.0-53.0) % Plt Count (150-450) k/uL Neutrophils # (1.3-7.7) k/uL Sodium (137-145) mmol/L Potassium (3.5-5.1) mmol/L Chloride (98-107) mmol/L Creatinine (0.66-1.25) mg/dL Glucose (74-99) mg/dL POC Glucose (mg/dL) 196 H 244 H 266 H (70-110) mg/dL Calcium (8.4-10.2) mg/dL 10/07/24 10/07/24 10/07/24 Range/Units 06:23 06:30 12:33 WBC 15.5 H (3.8-10.6) k/uL RBC 3.93 L (4.30-5.90) m/uL Hgb 11.5 L (13.0-17.5) gm/dL Hct 34.5 L (39.0-53.0) % Plt Count 484 H (150-450) k/uL Neutrophils # 12.9 H (1.3-7.7) k/uL Sodium 130 L (137-145) mmol/L Potassium 3.0 L (3.5-5.1) mmol/L Chloride 93 L (98-107) mmol/L Creatinine 0.62 L (0.66-1.25) mg/dL Glucose 216 H (74-99) mg/dL POC Glucose (mg/dL) 341 H (70-110) mg/dL Calcium 8.0 L (8.4-10.2) mg/dL 10/07/24 Range/Units 12:50 WBC (3.8-10.6) k/uL RBC (4.30-5.90) m/uL Hgb (13.0-17.5) gm/dL Hct (39.0-53.0) % Plt Count (150-450) k/uL Neutrophils # (1.3-7.7) k/uL Sodium (137-145) mmol/L Potassium (3.5-5.1) mmol/L Chloride (98-107) mmol/L Creatinine 0.60 L (0.66-1.25) mg/dL Glucose (74-99) mg/dL POC Glucose (mg/dL) (70-110) mg/dL Calcium (8.4-10.2) mg/dL Microbiology - Last 24 Hours (Table) 10/04/24 19:46 Blood Culture Gram Stain - Final Blood Blood Culture - Final Staphylococcus aureus Molecular ID 10/05/24 13:20 Gram Stain - Preliminary Elbow - Right Wound Culture - Preliminary Presumptive Staph aureus Assessment and Plan (1) Sepsis Current Visit: Yes Status: Acute Code(s): A41.9 - SEPSIS, UNSPECIFIED ORGANISM SNOMED Code(s): 14244942 (2) UTI (urinary tract infection) Current Visit: Yes Status: Acute Code(s): N39.0 - URINARY TRACT INFECTION, SITE NOT SPECIFIED SNOMED Code(s): 06332026 (3) Right arm cellulitis Current Visit: Yes Status: Acute Code(s): L03.113 - CELLULITIS OF RIGHT UPPER LIMB SNOMED Code(s): 31652059725286259 (4) SIRS (systemic inflammatory response syndrome) Current Visit: Yes Status: Acute Code(s): R65.10 - SIRS OF NON-INFECTIOUS ORIGIN W/O ACUTE ORGAN DYSFUNCTION SNOMED Code(s): 428815687 Plan: 1patient is in the hospital with sepsis in this patient who did have fever elevated white count source possible urinary versus right elbow area laceration with secondary cellulitis and will need to cover for both gram-positive as well as gram-negative pathogen. 2local culture from the right elbow laceration has been obtained a which are currently pending 3patient blood and urine cultures came back positive with MSSA ultrasound of the kidney bladder really did not show any hydronephrosis or nephrolithiasis 4patient currently being treated with cefazolin will need a midline when he clear his bacteremia Dictation was produced using [employer] dictation software. please excuse any grammatical, word or spelling errors. Time with Patient: Less than 30
[2024-10-07 17:37] LABS: Glucose,Whole Blood 219 mg/dL (70-110)
[2024-10-07] MEDS: POTASSIUM CHLORIDE ER 20 MEQ TAB.ER PO STA (20:08)
[2024-10-07] MEDS: METOPROLOL TARTRATE 50 MG TAB PO SCH (20:08)
[2024-10-07 20:21] LABS: Glucose,Whole Blood 179 mg/dL (70-110)
--- NOTE | 2024-10-07 22:16 | P.PN ---
Progress Note - Text Progress Note Date: 10/07/24 Chief Complaint: Falls 73-year-old gentleman, follows with Dr. Olivas. Chronic medical conditions include diabetes, hyperlipidemia, depression anxiety, CAD with bypass, cigarette smoker. 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 Patient stated patient yesterday morning started having falls. About 4 5 times. Even bumped his head. Decreased appetite. Noticed above fever. He denies any respiratory urinary symptoms. In the ER was found to have elevated white count and a UA came back to be positive. October 05: Saw the patient this morning overflowing the ER. In a recliner. Tired. Spoke to the nurse. Poor balance. PT OT consulted e. On IV ceftriaxone. Blood cultures come back showing gram-positive cocci in clusters. Per ID vancomycin added. October 06: Had a good breakfast.Awaiting input from PT OT. Blood and urine cultures positive for presumptive Staph aureus. ID following. No fever October 07: Seen by PT OT yesterday. Seems to be unsteady on the feet. May need rehab. Accu-Cheks been running high. Glucotrol added. Blood pressure running on the higher side. Lopressor increased to 50 mg twice daily. Stop IV fluids. Eating fair. Blood culture and urine finalized for MSSA this evening. Antibiotics switched over to IV cefazolin Active Medications Acetaminophen (Acetaminophen Tab 325 Mg Tab) 650 mg PO Q6HR PRN PRN Reason: Mild Pain or Fever > 100.5 Last Admin: 10/07/24 02:26 Dose: 650 mg Alprazolam (Alprazolam 0.25 Mg Tab) 0.25 mg PO Q6HR PRN PRN Reason: Anxiety Last Admin: 10/07/24 02:26 Dose: 0.25 mg Aripiprazole (Aripiprazole 2 Mg Tab) 2 mg PO DAILY [facility] Last Admin: 10/07/24 08:36 Dose: 2 mg Aspirin (Aspirin 81 Mg) 81 mg PO DAILY [facility] Last Admin: 10/07/24 08:36 Dose: 81 mg Atorvastatin Calcium (Atorvastatin 40 Mg Tab) 40 mg PO DAILY [facility] Last Admin: 10/07/24 08:37 Dose: 40 mg Bupropion HCl (Bupropion Xl 300 Mg Tab.Er.24h) 300 mg PO DAILY [facility] Last Admin: 10/07/24 08:37 Dose: 300 mg Calcium Carbonate/Glycine (Calcium Carbonate 500 Mg Chewable) 1,000 mg PO Q4HR PRN PRN Reason: Dyspepsia Clopidogrel Bisulfate (Clopidogrel 75 Mg Tab) 75 mg PO DAILY [facility] Last Admin: 10/07/24 08:37 Dose: 75 mg Dextrose/Water (Dextrose 50% Syringe 50 Ml) 25 ml IVP PER PROTOCOL PRN; Protocol PRN Reason: Hypoglycemia Dextrose/Water (Dextrose 50% Syringe 50 Ml) 50 ml IVP PER PROTOCOL PRN; Protocol PRN Reason: Hypoglycemia Enoxaparin Sodium (Enoxaparin 40 Mg/0.4 Ml Syringe) 40 mg SQ HS [facility] Last Admin: 10/07/24 20:08 Dose: 40 mg Folic Acid (Folic Acid 1 Mg Tab) 1 mg PO DAILY [facility] Last Admin: 10/07/24 08:37 Dose: 1 mg Glipizide (Glipizide 10 Mg Tab) 10 mg PO AC-BID [facility] Last Admin: 10/07/24 17:48 Dose: 10 mg Cefazolin Sodium 2 gm/ Sodium (Chloride) 50 mls @ 100 mls/hr IVPB Q8HR [facility]; Protocol Last Admin: 10/07/24 15:46 Dose: 100 mls/hr Insulin Aspart (Insulin Aspart (Novolog) 100 Unit/Ml Vial) 0 unit SQ ACHS [facility]; Protocol Last Admin: 10/07/24 20:20 Dose: 2 unit Lactulose (Lactulose 20 Gm/30 Ml Cup) 20 gm PO DAILY PRN PRN Reason: Constipation Losartan Potassium (Losartan 50 Mg Tab) 100 mg PO HS [facility] Last Admin: 10/07/24 20:08 Dose: 100 mg Metformin HCl (Metformin 500 Mg Tab) 1,000 mg PO BID-W/MEALS [facility] Last Admin: 10/07/24 17:48 Dose: 1,000 mg Metoprolol Tartrate (Metoprolol Tartrate 50 Mg Tab) 50 mg PO BID [facility] Last Admin: 10/07/24 20:08 Dose: 50 mg Naloxone HCl (Naloxone 0.4 Mg/Ml 1 Ml Vial) 0.2 mg IV Q2M PRN PRN Reason: Opioid Reversal Nicotine (Nicotine 14mg/24hr Patch) 1 patch TRANSDERM DAILY [facility] Last Admin: 10/07/24 08:38 Dose: Not Given Ondansetron HCl (Ondansetron 4 Mg/2 Ml Vial) 4 mg IVP Q8HR PRN PRN Reason: Nausea And Vomiting Pioglitazone HCl (Pioglitazone 30 Mg Tab) 30 mg PO DAILY [facility] Last Admin: 10/07/24 08:37 Dose: 30 mg Temazepam (Temazepam 15 Mg Cap) 30 mg PO HS PRN PRN Reason: Insomnia Social history: Lives alone. Smokes about half pack a day for many years. Physical examination: VITAL SIGNS: 98, 67, 16, 158 x 74, 97% room air this morning GENERAL: [BMI 24.4, resting EYES: Pupils equal. Conjunctiva gia l. HEENT: External appearance of nose and ears normal, oral cavity grossly normal. NECK: JVD not raised; masses not palpable. HEART: First and second heart sounds are normal; no edema. LUNGS: Respiratory rate normal; clear to auscultation. ABDOMEN: Soft, nontender, liver spleen not palpable, no masses palpable. PSYCH: Alert and oriented x3; mood and affect tired MUSCULOSKELETAL:No Clubbing/cyanosis;muscles-grossly intact. Some loss of muscle mass INVESTIGATIONS, reviewed in the clinical context: October 07: White count 15.5 hemoglobin 11.5 platelets 44 October 05: White count 20.2 hemoglobin 12.4 platelets 425 sodium 127 potassium 3.2 creatinine 0.63 Blood culture: Gram-MSSA. Urine culture: MSSA October 04, 2024: White count 20.6 hemoglobin 12.9 platelets 417 sodium 129 potassium 3.7 bicarb 18 creatinine 0.75 blood glucose 282 Troponin I less than 0.012 Influenza type A, type B, RSV, COVID-19: Not detected UA positive for protein 1+ glucose 4+ ketone 4+ blood moderate urine nitrite positive leukoesterase small WBC 33 CT head cervical spine: Negative for fracture Chest x-ray film personally reviewed by me-some interstitial prominence Assessment and plan: -Acute UTI, with sepsis with blood cultures positive for MSSA.: IV vancomycin switched over to IV cefazolin. Ceftriaxone discontinued -Sepsis with positive blood cultures: MSSA IV cefazolin ID following -Diabetes mellitus type 2: On oral hypoglycemic uncontrolled Metformin and Actos. Follow Accu-Cheks Add Glucotrol 10 mg twice daily -Hyponatremia likely hypovolemia from decreased oral intake: IV fluids. Fluid restriction 1500 cc a day -Hyperlipidemia Lipitor -Essential hypertension, uncontrolled Started on losartan 100 mg nightly Add Lopressor 25 twice daily today. -Depression and anxiety Wellbutrin XL, Celexa -Chronic nicotine dependence, cigarette smoker Nicotine patch -Gait dysfunction apparently from previous stroke. PT OT -Disposition: Will need rehab plate worker consulted -Full code Past Medical History Past Medical History: Diabetes Mellitus, Hyperlipidemia, Hypertension History of Any Multi-Drug Resistant Organisms: None Reported Past Surgical History: Coronary Bypass/CABG Past Psychological History: No Psychological Hx Reported Smoking Status: Current every day smoker Past Alcohol Use History: None Reported Past Drug Use History: None Reported
[2024-10-08 05:41] LABS: Glucose,Whole Blood 161 mg/dL (70-110)
[2024-10-08 06:36] LABS: Basophils % (A) 0 %; Eosinophils # (A) 0.1 k/uL (0-0.7); Eosinophils % (A) 1 %; HCT 31.1 % (39.0-53.0); HGB 10.6 gm/dL (13.0-17.5); Lymphocytes # (A) 1.8 k/uL (1.0-4.8); Lymphocytes % (A) 12 %; MCH 29.2 pg (25.0-35.0); MCHC 33.9 g/dL (31.0-37.0); MCV 86.1 fL (80.0-100.0); Mean Platelet Volume 7.3; Monocytes # (A) 0.7 k/uL (0-1.0); Monocytes % (A) 5 %; Neutrophils # (A) 11.9 k/uL (1.3-7.7); Neutrophils % (A) 81 %; Platelet Count 530 k/uL (150-450); Poikilocytosis Slight; RBC 3.61 m/uL (4.30-5.90); RDW 13.8 % (11.5-15.5); WBC 14.7 k/uL (3.8-10.6)
[2024-10-08 06:47] LABS: African American GFR (CKD) >90 (>60 ml/min/1.73 sqM); Anion Gap 7 mmol/L; Blood Urea Nitrogen 8 mg/dL (9-20); Calcium 7.7 mg/dL (8.4-10.2); Carbon Dioxide 31 mmol/L (22-30); Chloride 93 mmol/L (98-107); Glucose 131 mg/dL (74-99); Non-African American GFR(CKD) >90 (>60 ml/min/1.73 sqM); Sodium 131 mmol/L (137-145)
[2024-10-08 12:54] LABS: Glucose,Whole Blood 181 mg/dL (70-110)
[2024-10-08] MEDS: POTASSIUM CHLORIDE ER 20 MEQ TAB.ER PO STA (13:13)
--- NOTE | 2024-10-08 16:29 | P.PN ---
Subjective Progress Note Date: 10/08/24 Principal diagnosis: Reason for follow-up is MSSA UTI bacteremia Patient is a 74-year-old male with a past medical history significant for diabetes mellitus hypertension hyperlipidemia patient has been brought into the hospital for evaluation of weakness and apparently the patient did have multiple falls, he did have a positive UA and there was concern for possible l eft upper extremity cellulitis with a wound culture documented positive with MSSA both in the blood in the urine. On today's evaluation that is 10/08/2024, Patient is afebrile patient is currently on room air and denies having any shortness of breath, the patient denies any chest pain or cough, the patient denies any nausea vomiting did not have any abdominal pain and no diarrhea. Patient white count is down to 14,000 blood culture repeat currently pending Objective - Vital Signs Vital signs: Vital Signs Temp 98.5 F 10/08/24 08:00 Pulse 82 10/08/24 08:00 Resp 18 10/08/24 08:00 BP 148/64 10/08/24 08:00 Pulse Ox 94 L 10/08/24 08:00 FiO2 Intake & Output 10/07/24 10/08/24 10/08/24 18:59 06:59 18:59 Intake Total 420 358 118 Output Total 1000 1300 Balance -580 -942 118 Intake: Oral 420 358 118 Output: Urine 1000 1300 Other: Voiding Method Diaper Diaper External Catheter External Catheter # Bowel Movements 1 - Exam GENERAL DESCRIPTION: An elderly male lying in bed in no distress RESPIRATORY SYSTEM: Unlabored breathing , decreased breath sounds at bases HEART: S1 S2 regular rate and rhythm , ABDOMEN: Soft , no tenderness EXTREMITIES: No edema feet - Labs CBC & Chem 7: 10/08/24 05:46 10/08/24 05:46 Labs: Abnormal Lab Results - Last 24 Hours (Table) 10/07/24 10/07/24 10/08/24 Range/Units 17:36 20:19 05:40 WBC (3.8-10.6) k/uL RBC (4.30-5.90) m/uL Hgb (13.0-17.5) gm/dL Hct (39.0-53.0) % Plt Count (150-450) k/uL Neutrophils # (1.3-7.7) k/uL Sodium (137-145) mmol/L Potassium (3.5-5.1) mmol/L Chloride (98-107) mmol/L Carbon Dioxide (22-30) mmol/L BUN (9-20) mg/dL Creatinine (0.66-1.25) mg/dL Glucose (74-99) mg/dL POC Glucose (mg/dL) 219 H 179 H 161 H (70-110) mg/dL Calcium (8.4-10.2) mg/dL 10/08/24 10/08/24 10/08/24 Range/Units 05:46 05:46 12:52 WBC 14.7 H (3.8-10.6) k/uL RBC 3.61 L (4.30-5.90) m/uL Hgb 10.6 L (13.0-17.5) gm/dL Hct 31.1 L (39.0-53.0) % Plt Count 530 H (150-450) k/uL Neutrophils # 11.9 H (1.3-7.7) k/uL Sodium 131 L (137-145) mmol/L Potassium 3.0 L (3.5-5.1) mmol/L Chloride 93 L (98-107) mmol/L Carbon Dioxide 31 H (22-30) mmol/L BUN 8 L (9-20) mg/dL Creatinine 0.59 L (0.66-1.25) mg/dL Glucose 131 H (74-99) mg/dL POC Glucose (mg/dL) 181 H (70-110) mg/dL Calcium 7.7 L (8.4-10.2) mg/dL Microbiology - Last 24 Hours (Table) 10/05/24 13:20 Gram Stain - Final Elbow - Right Wound Culture - Final Staphylococcus aureus 10/04/24 19:46 Urine Culture - Final Urine,Voided Staphylococcus aureus 10/04/24 19:46 Blood Culture Gram Stain - Final Blood Blood Culture - Final Staphylococcus aureus Molecular ID Assessment and Plan (1) Sepsis Current Visit: Yes Status: Acute Code(s): A41.9 - SEPSIS, UNSPECIFIED ORGAN ISM SNOMED Code(s): 61514664 (2) UTI (urinary tract infection) Current Visit: Yes Status: Acute Code(s): N39.0 - URINARY TRACT INFECTION, SITE NOT SPECIFIED SNOMED Code(s): 80502141 (3) Right arm cellulitis Current Visit: Yes Status: Acute Code(s): L03.113 - CELLULITIS OF RIGHT UPPER LIMB SNOMED Code(s): 96430164837037519 (4) SIRS (systemic inflammatory response syndrome) Current Visit: Yes Status: Acute Code(s): R65.10 - SIRS OF NON-INFECTIOUS ORIGIN W/O ACUTE ORGAN DYSFUNCTION SNOMED Code(s): 696444075 Plan: 1patient is in the hospital with sepsis in this patient who did have fever elevated white count source possible urinary versus right elbow area laceration with secondary cellulitis and will need to cover for both gram-positive as well as gram-negative pathogen. 2local culture from the right elbow laceration has been obtained a which are currently pending 3patient blood and urine cultures came back positive with MSSA ultrasound of the kidney bladder really did not show any hydronephrosis or nephrolithiasis 4patient repeat blood cultures currently pending to make sure no evidence of any persistent bacteremia patient treated with cefazolin Dictation was produced using [employer] dictation software. please excuse any grammatical, word or spelling errors.
[2024-10-08 17:10] LABS: Glucose,Whole Blood 210 mg/dL (70-110)
--- NOTE | 2024-10-08 19:15 | P.PN ---
Progress Note - Text Progress Note Date: 10/08/24 Chief Complaint: Falls 73-year-old gentleman, follows with Dr. Olivas. Chronic medical conditions include diabetes, hyperlipidemia, depression anxiety, CAD with bypass, cigarette smoker. 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 Patient stated patient yesterday morning started having falls. About 4 5 times. Even bumped his head. Decreased appetite. Noticed above fever. He denies any respiratory urinary symptoms. In the ER was found to have elevated white count and a UA came back to be positive. October 05: Saw the patient this morning overflowing the ER. In a recliner. Tired. Spoke to the nurse. Poor balance. PT OT consulted e. On IV ceftriaxone. Blood cultures come back showing gram-positive cocci in clusters. Per ID vancomycin added. October 06: Had a good breakfast.Awaiting input from PT OT. Blood and urine cultures positive for presumptive Staph aureus. ID following. No fever October 07: Seen by PT OT yesterday. Seems to be unsteady on the feet. May need rehab. Accu-Cheks been running high. Glucotrol added. Blood pressure running on the higher side. Lopressor increased to 50 mg twice daily. Stop IV fluids. Eating fair. Blood culture and urine finalized for MSSA this evening. Antibiotics switched over to IV cefazolin October 08: Rather sleepy. Patient's was Zoloft and Abilify been switched to p.m. On IV cefazolin. Spoke to the nurse to get the patient up in a chair. Replace potassium. Looking into rehab. For blood pressure increase Lopressor to 100 mg twice daily. Social history: Lives alone. Smokes about half pack a day for many years. Physical examination: VITAL SIGNS: 98.5, 91 [place], 17, 170 x 76, 97% room air GENERAL: [BMI 24.4, r sleepy EYES: Pupils equal. Conjunctiva gia l. HEENT: External appearance of nose and ears normal, oral cavity grossly normal. NECK: JVD not raised; masses not palpable. HEART: First and second heart sounds are normal; no edema. LUNGS: Respiratory rate normal; clear to auscultation. ABDOMEN: Soft, nontender, liver spleen not palpable, no masses palpable. PSYCH: Sleepy but answers questions. MUSCULOSKELETAL:No Clubbing/cyanosis;muscles-grossly intact. Some loss of muscle mass INVESTIGATIONS, reviewed in the clinical context: October 08: White count 4.7 hemoglobin 10.6 sodium 131 creatinine 0.59 October 07: White count 15.5 hemoglobin 11.5 platelets 44 October 05: White count 20.2 hemoglobin 12.4 platelets 425 sodium 127 potassium 3.2 creatinine 0.63 Blood culture: Gram-MSSA. Urine culture: MSSA October 04, 2024: White count 20.6 hemoglobin 12.9 platelets 417 sodium 129 potassium 3.7 bicarb 18 creatinine 0.75 blood glucose 282 Troponin I less than 0.012 Influenza type A, type B, RSV, COVID-19: Not detected UA positive for protein 1+ glucose 4+ ketone 4+ blood moderate urine nitrite positive leukoesterase small WBC 33 CT head cervical spine: Negative for fracture Chest x-ray film personally reviewed by me-some interstitial prominence Assessment and plan: -Acute UTI, with sepsis with blood cultures positive for MSSA.: IV vancomycin switched over to IV cefazolin. Ceftriaxone discontinued -Sepsis with positive blood cultures: MSSA IV cefazolin ID following -Diabetes mellitus type 2: On oral hypoglycemic uncontrolled Metformin and Actos. Follow Accu-Cheks Added Glucotrol 10 mg twice daily -Hyponatremia likely hypovolemia from decreased oral intake: IV fluids. Fluid restriction 1500 cc a day -Hyperlipidemia Lipitor -Essential hypertension, uncontrolled Started on losartan 100 mg nightly Increase Lopressor to 100 mg twice daily -Depression and anxiety Wellbutrin XL, Celexa -Chronic nicotine dependence, cigarette smoker Nicotine patch -Gait dysfunction apparently from previous stroke. 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 PT OT. Look into possible rehab. Check cortisol level Past Medical History Past Medical History: Diabetes Mellitus, Hyperlipidemia, Hypertension History of Any Multi-Drug Resistant Organisms: None Reported Past Surgical History: Coronary Bypass/CABG Past Psychological History: No Psychological Hx Reported Smoking Status: Current every day smoker Past Alcohol Use History: None Reported Past Drug Use History: None Reported
[2024-10-08] MEDS: buPROPion XL 300 MG TAB.ER.24H PO SCH (19:31)
[2024-10-08] MEDS: ARIPiprazole 2 MG TAB PO SCH (19:31)
[2024-10-08 20:18] LABS: Glucose,Whole Blood 240 mg/dL (70-110)
[2024-10-08] MEDS: METOPROLOL TARTRATE 50 MG TAB PO SCH (21:43)
[2024-10-09 05:47] LABS: Glucose,Whole Blood 136 mg/dL (70-110)
[2024-10-09 08:51] LABS: African American GFR (CKD) >90 (>60 ml/min/1.73 sqM); Non-African American GFR(CKD) >90 (>60 ml/min/1.73 sqM)
[2024-10-09 12:18] LABS: Glucose,Whole Blood 186 mg/dL (70-110)
--- NOTE | 2024-10-09 12:47 | CA ---
Transthoracic Echo Report Name: Bronson Ponce Age: 74 Gender: M : 1950 Exam Date: 10/09/2024 11:32 Exam Location: [facility] Ht (in): 72 Wt (lb): 180 Ordering Physician: Antonio Gar MD Attending/Referring Phys: Ethnology Teacher Francy Ruiz RDCS Procedure CPT: Indications: bacteremia Cardiac Hx: Technical Quality: Good Contrast 1: Total Dose (mL): Contrast 2: Total Dose (mL): MEASUREMENTS (Male / Female) Normal Values 2D ECHO LV Diastolic Diameter PLAX 4.8 cm 4.2 - 5.9 / 3.9 - 5.3 cm LV Systolic Diameter PLAX 3.5 cm IVS Diastolic Thickness 1.1 cm 0.6 - 1.0 / 0.6 - 0.9 cm LVPW Diastolic Thickness 1.1 cm 0.6 - 1.0 / 0.6 - 0.9 cm LV Relative Wall Thickness 0.5 LVOT Diameter 2.3 cm LV Diastolic Volume MOD BP 125.1 cm??? 67 - 155 / 56 - 104 cm??? LV Systolic Volume MOD BP 48.7 cm??? 22 - 58 / 19 - 49 cm??? LV Ejection Fraction MOD BP 61.1 % >= 55 % LV Cardiac Index MOD BP 2281.9 cm???/min???m??? LV Diastolic Volume MOD 4C 127.2 cm??? LV Systolic Volume MOD 4C 50.7 cm??? LV Ejection Fraction MOD 4C 60.1 % LV Cardiac Index MOD 4C 2286.4 cm???/min???m??? LV Diastolic Length 4C 8.9 cm LV Systolic Length 4C 7.9 cm LV Diastolic Volume MOD 2C 122.8 cm??? LV Systolic Volume MOD 2C 44.4 cm??? LV Ejection Fraction MOD 2C 63.8 % LV Cardiac Index MOD 2C 2342.4 cm???/min???m??? LV Diastolic Length 2C 8.8 cm LV Systolic Length 2C 8.3 cm DOPPLER AV Peak Velocity 126.6 cm/s AV Peak Gradient 6.4 mmHg AV Mean Velocity 88.8 cm/s AV Mean Gradient 3.5 mmHg AV Velocity Time Integral 27.5 cm LVOT Peak Velocity 94.8 cm/s LVOT Peak Gradient 3.6 mmHg LVOT Velocity Time Integral 18.7 cm LVOT Stroke Volume 76.8 cm??? LVOT Stroke Volume Index 37.7 ml/m??? LVOT Cardiac Index 2293.9 cm???/min???m??? AV Area Cont Eq vti 2.8 cm??? AV Area Cont Eq pk 3.1 cm??? MV Area PHT 3.3 cm??? Mitral E Point Velocity 84.4 cm/s Mitral A Point Velocity 66.4 cm/s Mitral E to A Ratio 1.3 MV Deceleration Time 231.4 ms TR Peak Velocity 177.9 cm/s TR Peak Gradient 12.7 mmHg Right Atrial Pressure 5.0 mmHg Pulmonary Artery Systolic Pressu 17.7 mmHg Right Ventricular Systolic Press 17.7 mmHg PV Peak Velocity 76.9 cm/s PV Peak Gradient 2.4 mmHg FINDINGS Left Ventricle Left ventricular ejection fraction is estimated at 55-60 %. Left ventricular cavity size normal. Left ventricular wall thickness normal. No obvious regional wall motion abnormalities. Right Ventricle Normal right ventricular size with mildly reduced function. Right ventricular systolic pressure within normal limits. Right Atrium Normal right atrial size. Left Atrium Mildly increased left atrial area. Mitral Valve Structurally normal mitral valve. No evidence for mitral valve prolapse. No mitral stenosis. Trace mitral regurgitation. Aortic Valve Trileaflet aortic valve. No aortic valve stenosis or regurgitation. Tricuspid Valve Structurally normal tricuspid valve. No tricuspid stenosis. Mild tricuspid regurgitation. Pulmonic Valve Pulmonic valve not well visualized. No pulmonic stenosis. No pulmonic regurgitation. Pericardium No pericardial effusion. Aorta Mildly dilated aortic annulus. CONCLUSIONS Technically difficult study for interpretation Normal biventricular systolic function Previewed by: Dr. Zach Alvarado MD (Electronically Signed) Final Date: 09 October 2024 12:46
[2024-10-09 17:12] LABS: Glucose,Whole Blood 113 mg/dL (70-110)
--- NOTE | 2024-10-09 17:28 | P.PN ---
Subjective Progress Note Date: 10/09/24 Principal diagnosis: Reason for follow-up is MSSA UTI bacteremia Patient is a 74-year-old male with a past medical history significant for diabetes mellitus hypertension hyperlipidemia patient has been brought into the hospital for evaluation of weakness and apparently the patient did have multiple falls, he did have a positive UA and there was concern for possible l eft upper extremity cellulitis with a wound culture documented positive with MSSA both in the blood in the urine. On today's evaluation that is 10/09/2024, patient has been afebrile, patient is breathing comfortably and is currently on room air, patient denies having any significant cough no chest pain, patient denies nausea vomiting or diarrhea and no abdominal pain. Patient did have a creatinine 0.57 blood cultures from 215 also came back positive with MSSA Objective - Vital Signs Vital signs: Vital Signs Temp 97.8 F 10/09/24 07:26 Pulse 68 10/09/24 07:26 Resp 16 10/09/24 07:26 BP 164/73 10/09/24 07:26 Pulse Ox 95 10/09/24 07:26 FiO2 Intake & Output 10/08/24 10/09/24 10/09/24 18:59 06:59 18:59 Intake Total 118 118 118 Output Total 800 900 300 Balance -612 782 -182 Intake: Oral 118 118 118 Output: Urine 800 900 300 Other: Voiding Method Diaper External Catheter External Catheter # Voids 1 # Bowel Movements 1 - Exam GENERAL DESCRIPTION: An elderly male lying in bed in no distress RESPIRATORY SYSTEM: Unlabored breathing , decreased breath sounds at bases HEART: S1 S2 regular rate and rhythm , ABDOMEN: Soft , no tenderness EXTREMITIES: No edema feet - Labs CBC & Chem 7: 10/08/24 05:46 10/09/24 07:58 Labs: Abnormal Lab Results - Last 24 Hours (Table) 10/08/24 10/08/24 10/08/24 Range/Units 12:52 17:09 20:14 Creatinine (0.66-1.25) mg/dL POC Glucose (mg/dL) 181 H 210 H 240 H (70-110) mg/dL 10/09/24 10/09/24 Range/Units 05:43 07:58 Creatinine 0.57 L (0.66-1.25) mg/dL POC Glucose (mg/dL) 136 H (70-110) mg/dL Microbiology - Last 24 Hours (Table) 10/07/24 06:23 Blood Culture Gram Stain - Preliminary Blood Blood Culture - Preliminary Molecular ID Assessment and Plan (1) Sepsis Current Visit: Yes Status: Acute Code(s): A41.9 - SEPSIS, UNSPECIFIED ORGANISM SNOMED Code(s): 70202027 (2) UTI (urinary tract infection) Current Visit: Yes Status: Acute Code(s): N39.0 - URINARY TRACT INFECTION, SITE NOT SPECIFIED SNOMED Code(s): 36002656 (3) Right arm cellulitis Current Visit: Yes Status: Acute Code(s): L03.113 - CELLULITIS OF RIGHT UPPER LIMB SNOMED Code(s): 59495136073169312 (4) SIRS (systemic inflammatory response syndrome) Current Visit: Yes Status: Acute Code(s): R65.10 - SIRS OF NON-INFECTIOUS ORIGIN W/O ACUTE ORGAN DYSFUNCTION SNOMED Code(s): 090623910 Plan: 1patient is in the hospital with sepsis in this patient who did have fever elevated white count source possible urinary versus right elbow area laceration with secondary cellulitis and will need to cover for both gram-positive as well as gram-negative pathogen. 2local culture from the right elbow laceration has been obtained a which are currently growing MSSA 3patient blood and urine cultures came back positive with MSSA ultrasound of the kidney bladder really did not show any hydronephrosis or nephrolithiasis 4patient repeat blood cultures on 10/07/2024 also came back positive concerning for possible endovascular infection will check an echocardiogram blood culture have been repeated to continue cefazolin Dictation was produced using [employer] dictation software. please excuse any grammatical, word or spelling errors.
--- NOTE | 2024-10-09 19:28 | P.PN ---
Progress Note - Text Progress Note Date: 10/09/24 Chief Complaint: Falls 73-year-old gentleman, follows with Dr. Olivas. Chronic medical conditions include diabetes, hyperlipidemia, depression anxiety, CAD with bypass, cigarette smoker. 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 Patient stated patient yesterday morning started having falls. About 4 5 times. Even bumped his head. Decreased appetite. Noticed above fever. He denies any respiratory urinary symptoms. In the ER was found to have elevated white count and a UA came back to be positive. October 05: Saw the patient this morning overflowing the ER. In a recliner. Tired. Spoke to the nurse. Poor balance. PT OT consulted e. On IV ceftriaxone. Blood cultures come back showing gram-positive cocci in clusters. Per ID vancomycin added. October 06: Had a good breakfast.Awaiting input from PT OT. Blood and urine cultures positive for presumptive Staph aureus. ID following. No fever October 07: Seen by PT OT yesterday. Seems to be unsteady on the feet. May need rehab. Accu-Cheks been running high. Glucotrol added. Blood pressure running on the higher side. Lopressor increased to 50 mg twice daily. Stop IV fluids. Eating fair. Blood culture and urine finalized for MSSA this evening. Antibiotics switched over to IV cefazolin October 08: Rather sleepy. Patient's was Zoloft and Abilify been switched to p.m. On IV cefazolin. Spoke to the nurse to get the patient up in a chair. Replace potassium. Looking into rehab. For blood pressure increase Lopressor to 100 mg twice daily. October 09: Patient Zoloft and Abilify was switched to the p.m. dose. Patient far more awake today. Up in a chair. Getting IV cefazolin. Repeat blood cultures from October 07 positive. Another set of blood cultures ordered. 2D echo unremarkable., No vegetations reported. Eating more than 50%. Right elbo w wound is superficial. Bacitracin ointment with dressing Active Medications Acetaminophen (Acetaminophen Tab 325 Mg Tab) 650 mg PO Q6HR PRN PRN Reason: Mild Pain or Fever > 100.5 Last Admin: 10/09/24 09:18 Dose: 650 mg Aripiprazole (Aripiprazole 2 Mg Tab) 2 mg PO HS DAIJA Last Admin: 10/08/24 19:31 Dose: Not Given Aspirin (Aspirin 81 Mg) 81 mg PO DAILY [facility] Last Admin: 10/09/24 08:49 Dose: 81 mg Atorvastatin Calcium (Atorvastatin 40 Mg Tab) 40 mg PO DAILY [facility] Last Admin: 10/09/24 08:50 Dose: 40 mg Bupropion HCl (Bupropion Xl 300 Mg Tab.Er.24h) 300 mg PO HS [facility] Last Admin: 10/08/24 19:31 Dose: Not Given Calcium Carbonate/Glycine (Calcium Carbonate 500 Mg Chewable) 1,000 mg PO Q4HR PRN PRN Reason: Dyspepsia Clopidogrel Bisulfate (Clopidogrel 75 Mg Tab) 75 mg PO DAILY [facility] Last Admin: 10/09/24 08:49 Dose: 75 mg Dextrose/Water (Dextrose 50% Syringe 50 Ml) 25 ml IVP PER PROTOCOL PRN; Protocol PRN Reason: Hypoglycemia Dextrose/Water (Dextrose 50% Syringe 50 Ml) 50 ml IVP PER PROTOCOL PRN; Protocol PRN Reason: Hypoglycemia Enoxaparin Sodium (Enoxaparin 40 Mg/0.4 Ml Syringe) 40 mg SQ HS [facility] Last Admin: 10/08/24 21:43 Dose: 40 mg Folic Acid (Folic Acid 1 Mg Tab) 1 mg PO DAILY [facility] Last Admin: 10/09/24 08:49 Dose: 1 mg Glipizide (Glipizide 10 Mg Tab) 10 mg PO AC-BID [facility] Last Admin: 10/09/24 06:25 Dose: 10 mg Cefazolin Sodium 2 gm/ Sodium (Chloride) 50 mls @ 100 mls/hr IVPB Q8HR [facility]; Protocol Last Admin: 10/09/24 15:39 Dose: 100 mls/hr Insulin Aspart (Insulin Aspart (Novolog) 100 Unit/Ml Vial) 0 unit SQ ACHS [facility]; Protocol Last Admin: 10/09/24 17:38 Dose: Not Given Lactulose (Lactulose 20 Gm/30 Ml Cup) 20 gm PO DAILY PRN PRN Reason: Constipation Losartan Potassium (Losartan 50 Mg Tab) 100 mg PO HS [facility] Last Admin: 10/08/24 21:43 Dose: 100 mg Metformin HCl (Metformin 500 Mg Tab) 1,000 mg PO BID-W/MEALS [facility] Last Admin: 10/09/24 06:26 Dose: 1,000 mg Metoprolol Tartrate (Metoprolol Tartrate 50 Mg Tab) 100 mg PO BID [facility] Last Admin: 10/09/24 08:49 Dose: 100 mg Naloxone HCl (Naloxone 0.4 Mg/Ml 1 Ml Vial) 0.2 mg IV Q2M PRN PRN Reason: Opioid Reversal Nicotine (Nicotine 14mg/24hr Patch) 1 patch TRANSDERM DAILY [facility] Last Admin: 10/09/24 08:50 Dose: Not Given Ondansetron HCl (Ondansetron 4 Mg/2 Ml Vial) 4 mg IVP Q8HR PRN PRN Reason: Nausea And Vomiting Pioglitazone HCl (Pioglitazone 30 Mg Tab) 30 mg PO DAILY [facility] Last Admin: 10/09/24 08:50 Dose: 30 mg Social history: Lives alone. Smokes about half pack a day for many years. Physical examination: VITAL SIGNS: 97.4, 61, 16, 127 x 72, 96% room air GENERAL: [BMI 24.4, up in a recliner, awake EYES: Pupils equal. Conjunctiva gia l. HEENT: External appearance of nose and ears normal, oral cavity grossly normal. NECK: JVD not raised; masses not palpable. HEART: First and second heart sounds are normal; no edema. LUNGS: Respiratory rate normal; clear to auscultation. ABDOMEN: Soft, nontender, liver spleen not palpable, no masses palpable. PSYCH: Answering questions. s. MUSCULOSKELETAL:No Clubbing/cyanosis;muscles-grossly intact. Some loss of muscle mass INVESTIGATIONS, reviewed in the clinical context: 2D echo: Negative for vegetations October 09: Cortisol 16.9 October 08: White count 4.7 hemoglobin 10.6 sodium 131 creatinine 0.59 October 07: White count 15.5 hemoglobin 11.5 platelets 44 October 05: White count 20.2 hemoglobin 12.4 platelets 425 sodium 127 potassium 3.2 creatinine 0.63 Blood culture: Gram-MSSA. Urine culture: MSSA October 04, 2024: White count 20.6 hemoglobin 12.9 platelets 417 sodium 129 potassium 3.7 bicarb 18 creatinine 0.75 blood glucose 282 Troponin I less than 0.012 Influenza type A, type B, RSV, COVID-19: Not detected UA positive for protein 1+ glucose 4+ ketone 4+ blood moderate urine nitrite positive leukoesterase small WBC 33 CT head cervical spine: Negative for fracture Chest x-ray film personally reviewed by me-some interstitial prominence Assessment and plan: -Acute UTI, with sepsis with blood cultures positive for MSSA.: IV cefazolin. Ceftriaxone discontinued -Sepsis with positive blood cultures: MSSA Blood culture positive from October 04 and also from October 07. Repeat blood culture ordered October 09 2D echo negative for vegetations IV cefazolin ID following -Diabetes mellitus type 2: On oral hypoglycemic uncontrolled Metformin and Actos. Follow Accu-Cheks Added Glucotrol 10 mg twice daily -Hyponatremia likely hypovolemia from decreased oral intake: IV fluids. Fluid restriction 1500 cc a day -Hyperlipidemia Lipitor -Essential hypertension, controlled losartan 100 mg nightly Lopressor to 100 mg twice daily -Depression and anxiety Wellbutrin XL, Celexa -Chronic nicotine dependence, cigarette smoker Nicotine patch -Gait dysfunction apparently from previous stroke. PT OT -Disposition: Will need rehab supervisor park workers consulted -Full code Past Medical History Past Medical History: Diabetes Mellitus, Hyperlipidemia, Hypertension History of Any Multi-Drug Resistant Organisms: None Reported Past Surgical History: Coronary Bypass/CABG Past Psychological History: No Psychological Hx Reported Smoking Status: Current every day smoker Past Alcohol Use History: None Reported Past Drug Use History: None Reported
[2024-10-09 20:50] LABS: Glucose,Whole Blood 223 mg/dL (70-110)
[2024-10-09] MEDS: BACITRACIN OINT 1 EACH PACKET TOPICAL SCH (21:45)
[2024-10-10 05:49] LABS: Glucose,Whole Blood 109 mg/dL (70-110)
[2024-10-10] MEDS ORDERED: fentaNYL (PF) 50 MCG/ML 5 ML AMP IVP PRN (07:37)
[2024-10-10] MEDS ORDERED: BENZOCAINE SPRAY 1 CAN TOPICAL PRN (07:37)
[2024-10-10] MEDS ORDERED: MIDAZOLAM 2 MG/2 ML VIAL IV PRN (07:37)
--- NOTE | 2024-10-10 09:22 | P.CRDCN ---
History of Present Illness Consult date: 10/10/24 Reason for Consult (text): JOHN r/o vegetation History of present illness: This is a 74-year-old male with past medical history of coronary artery disease with 5 vessel CABG details are not available, diabetes mellitus type 2, hyperlipidemia, tobacco use and dependence. We have been asked to evaluate the patient for JOHN for vegetation. Patient states that he came into the hospital due to frequent falls and passing out at home. He currently lives alone. He denies having any chest pain or shortness of breath. Patient was admitted to [facility] on 10/04 right upper extremity cellulitis for which wound cultures positive for MSSA and also is MSSA bacteremic. Blood pressure 135/60, heart rate 75, pulse ox 100% on room air. Patient follows with a box toe cementer out of the area and he has not been seen by his box toe cementer for greater than 2 years. -EKG: Sinus rhythm, incomplete right bundle branch block, nonspecific ST changes. -Chest x-ray: Perhaps mild bilateral interstitial edema. No suspicious acute focal infiltrate. -Laboratory studies: WBC currently 14.7, hemoglobin 10.6, sodium 131, potassium 3, BUN 8 and creatinine 0.59. Cortisol level 16.9. Cepheid viral panel not detected. Troponin negative x 1. -Home cardiac medications: Aspirin 81 mg daily, Plavix 75 mg daily, rosuvastatin 20 mg daily. -Echocardiogram reveals technically difficult study for interpretation. Normal biventricular function. Review Of Systems: At the time of my exam: CONSTITUTIONAL: Denies fever or chills. HEENT: Denies blurred vision, vision changes, or eye pain. Denies hemoptysis CARDIOVASCULAR: Denies chest pain. Denies orthopnea. Denies PND. Denies palpitations RESPIRATORY: Denies shortness of breath. GASTROINTESTINAL: Denies abdominal pain. Denies nausea or vomiting. HEMATOLOGIC: Denies bleeding disorders. GENITOURINARY: Denies any blood in urine. SKIN: Denies puritis. Denies rash. Physical examination: Gen: This is a 74-year-old male in no acute distress VS: reviewed HEENT: Head is atraumatic, normocephalic. Pupils equal, round. Sclerae is anicteric. NECK: Supple. No JVD. LUNGS: Clear to auscultation. No wheezes or rhonchi. No intercostal retractions. HEART: Regular rate and rhythm. No murmur. ABDOMEN: Soft No tenderness. EXTREMITIES: No pedal edema. No calf tenderness. NEUROLOGICAL: Patient is awake, alert and oriented to person and place. Assessment: Sepsis Bacteremia Right elbow cellulitis Possible UTI Metabolic encephalopathy History of coronary artery disease with 5 vessel CABG as reported by the patient Diabetes mellitus type 2 Hyperlipidemia Tobacco use and dependence Plan: Continue current cardiac medications Patient will be scheduled for JOHN today with Dr. Alvarado. Further recommendations to follow based upon clinical course Thank you kindly for this consultation. Nurse practitioner note has been reviewed, I agree with documented findings and plan of care. Patient was seen and examined. Past Medical History Past Medical History: Diabetes Mellitus, Hyperlipidemia, Hypertension History of Any Multi-Drug Resistant Organisms: None Reported Past Surgical History: Coronary Bypass/CABG Past Psychological History: No Psychological Hx Reported Smoking Status: Current every day smoker Past Alcohol Use History: None Reported Past Drug Use History: None Reported Medications and Allergies Home Medications Medication Instructions Recorded Confirmed Type Rosuvastatin [Crestor] 20 mg PO DAILY 11/12/23 10/04/24 History buPROPion XL [Wellbutrin XL] 300 mg PO DAILY 11/12/23 10/04/24 History Aspirin 81 mg PO DAILY tab 11/18/23 10/04/24 Rx Clopidogrel [Plavix] 75 mg PO DAILY #21 tab 11/18/23 10/04/24 Rx Pioglitazone [Actos] 30 mg PO DAILY #30 tab 11/18/23 10/04/24 Rx ARIPiprazole [Abilify] 2 mg PO DAILY 10/04/24 10/04/24 History Folic Acid 1 mg PO DAILY 10/04/24 10/04/24 History Temazepam [Restoril] 30 mg PO HS PRN 10/04/24 10/04/24 History metFORMIN HCL [Glucophage] 1,000 mg PO BID-W/MEALS 10/04/24 10/04/24 History Allergies Allergy/AdvReac Type Severity Reaction Status Date / Time No Known Allergies Allergy Verified 10/04/24 17:10 Physical Exam Vitals: Vital Signs Temp Pulse Resp BP BP Pulse Ox 10/10/24 02:36 98.2 F 68 15 139/66 97 10/09/24 21:45 75 10/09/24 19:21 98.1 F 75 15 151/67 95 10/09/24 14:00 97.4 F L 61 16 127/72 96 Intake and Output 10/09/24 10/10/24 10/10/24 22:59 06:59 14:59 Intake Total 118 Output Total 201 900 Balance -83 -900 Intake: Oral 118 Output: Urine 200 900 Stool 1 Other: Voiding Method External Catheter Results 10/08/24 05:46 10/09/24 07:58 Comprehensive Metabolic Panel 10/09/24 Range/Units 07:58 Creatinine 0.57 L (0.66-1.25) mg/dL Current Medications Generic Name Dose Route Start Last Admin Trade Name Freq PRN Reason Stop Dose Admin Acetaminophen 650 mg 10/04/24 19:52 10/09/24 09:18 Acetaminophen Tab 325 Mg Tab PO 650 mg Q6HR PRN Administration Mild Pain or Fever > 100.5 Aripiprazole 2 mg 10/08/24 21:00 10/09/24 21:45 Aripiprazole 2 Mg Tab PO 2 mg HS DAIJA Administration Aspirin 81 mg 10/05/24 09:00 10/09/24 08:49 Aspirin 81 Mg PO 81 mg DAILY DAIJA Administration Atorvastatin Calcium 40 mg 10/05/24 09:00 10/09/24 08:50 Atorvastatin 40 Mg Tab PO 40 mg DAILY DAIJA Administration Bacitracin 1 each 10/09/24 22:00 10/09/24 21:45 Bacitracin Oint 1 Each Packet TOPICAL 1 each TID DAIJA Administration Protocol Bupropion HCl 300 mg 10/08/24 21:00 10/09/24 21:45 Bupropion Xl 300 Mg Tab.Er.24h PO 300 mg HS DAIJA Administration Calcium Carbonate/Glycine 1,000 mg 10/04/24 20:49 Calcium Carbonate 500 Mg Chewable PO Q4HR PRN Dyspepsia Clopidogrel Bisulfate 75 mg 10/05/24 09:00 10/09/24 08:49 Clopidogrel 75 Mg Tab PO 75 mg DAILY DAIJA Administration Dextrose/Water 25 ml 10/05/24 19:05 Dextrose 50% Syringe 50 Ml IVP PER PROTOCOL PRN Hypoglycemia Protocol Dextrose/Water 50 ml 10/05/24 19:05 Dextrose 50% Syringe 50 Ml IVP PER PROTOCOL PRN Hypoglycemia Protocol Enoxaparin Sodium 40 mg 10/04/24 21:00 10/09/24 21:44 Enoxaparin 40 Mg/0.4 Ml Syringe SQ 40 mg HS DAIJA Administration Folic Acid 1 mg 10/05/24 09:00 10/09/24 08:49 Folic Acid 1 Mg Tab PO 1 mg DAILY DAIJA Administration Glipizide 10 mg 10/07/24 13:07 10/09/24 21:45 Glipizide 10 Mg Tab PO 10 mg AC-BID DAIJA Administration Cefazolin Sodium 2 gm/ Sodium 50 mls @ 100 mls/hr 10/06/24 08:45 10/09/24 23:56 Chloride IVPB 100 mls/hr Q8HR DAIJA Administration Protocol Insulin Aspart 0 unit 10/05/24 21:00 10/10/24 06:07 Insulin Aspart (Novolog) 100 Unit/Ml Vial SQ Not Given ACHS [facility] Protocol Lactulose 20 gm 10/04/24 20:49 Lactulose 20 Gm/30 Ml Cup PO DAILY PRN Constipation Losartan Potassium 100 mg 10/05/24 21:00 10/09/24 21:44 Losartan 50 Mg Tab PO 100 mg HS DAIJA Administration Metformin HCl 1,000 mg 10/05/24 07:30 10/09/24 21:47 Metformin 500 Mg Tab PO Not Given BID-W/MEALS [facility] Metoprolol Tartrate 100 mg 10/08/24 21:00 10/09/24 21:44 Metoprolol Tartrate 50 Mg Tab PO 100 mg BID DAIJA Administration Naloxone HCl 0.2 mg 10/04/24 19:52 Naloxone 0.4 Mg/Ml 1 Ml Vial IV Q2M PRN Opioid Reversal Nicotine 1 patch 10/04/24 21:00 10/09/24 08:50 Nicotine 14mg/24hr Patch TRANSDERM Not Given DAILY [facility] Ondansetron HCl 4 mg 10/04/24 20:49 Ondansetron 4 Mg/2 Ml Vial IVP Q8HR PRN Nausea And Vomiting Pioglitazone HCl 30 mg 10/05/24 09:00 10/09/24 08:50 Pioglitazone 30 Mg Tab PO 30 mg DAILY DAIJA Administration Intake and Output 10/09/24 10/10/24 10/10/24 22:59 06:59 14:59 Intake Total 118 Output Total 201 900 Balance -83 -900 Intake: Oral 118 Output: Urine 200 900 Stool 1 Other: Voiding Method External Catheter 10/08/24 05:46 10/09/24 07:58
[2024-10-10 11:44] LABS: Glucose,Whole Blood 136 mg/dL (70-110)
[2024-10-10] MEDS: BENZOCAINE SPRAY 1 EACH MM ONE ×2 (12:08→12:13)
[2024-10-10] MEDS: SODIUM CHLORIDE 0.9% 500 ML 500 ML IV ONE (12:09)
[2024-10-10] MEDS: fentaNYL (PF) 50 MCG/1 ML VIAL IVP ONE (12:27)
[2024-10-10] MEDS: MIDAZOLAM 2 MG/2 ML VIAL IVP ONE ×2 (12:27→12:30)
--- NOTE | 2024-10-10 12:40 | P.PCN ---
Date of Procedure: 10/10/24 Operative Findings: TRANSESOPHAGEAL ECHOCARDIOGRAM STACKER AND SORTER OPERATOR: AMEE MENDOZA MD, RPVI INDICATION: Rule out infective endocarditis SEDATION: Conscious sedation COMPLICATION: None LEVEL OF SEDATION Moderate with sedation length of 20 minutes PROCEDURE DESCRIPTION: After obtaining an informed consent, the patient was brought to transesophageal echocardiogram room. Pulse oximetry and heart monitors were attached to the patient. The patient throat was sprayed using lidocaine. The patient was turned into left lateral position. After that a bite guard was placed. After an appropriate conscious sedation was initiated, the transesophageal echocardiogram was advanced through a bite guard into the mid esophagus. A 2-D echocardiogram images, color Doppler images, continuous wave images, pulse-wave images, of various cardiac structure were performed. After that the transesophageal echocardiogram probe was advanced into the stomach and fixed to obtain transgastric view was. The probe was brought into the mid esophagus. Inter-atrial septum was interrogated using 2D images, color Doppler images, and then contrast study. After that transesophageal echocardiogram was withdrawn out and upon withdrawing the descending thoracic aorta all the way up to the arch was evaluated. CONCLUSION: 1. No evidence of infective endocarditis 2. Intact intracardiac valves 3. Intact left atrial appendage and intact interatrial septum 4. Normal biventricular systolic function 5. No evidence of pericardial effusion
--- NOTE | 2024-10-10 16:03 | P.PN ---
Subjective Progress Note Date: 10/10/24 Principal diagnosis: Reason for follow-up is MSSA UTI bacteremia Patient is a 74-year-old male with a past medical history significant for diabetes mellitus hypertension hyperlipidemia patient has been brought into the hospital for evaluation of weakness and apparently the patient did have multiple falls, he did have a positive UA and there was concern for possible l eft upper extremity cellulitis with a wound culture documented positive with MSSA both in the blood in the urine. On today's evaluation that is 10/10/2024, Patient is afebrile this morning patient denies having any chest pain shortness of breath or cough, the patient is currently on room air, patient denies any abdominal pain no diarrhea no nausea no vomiting. No new lab has been obtained today 2D echo did not show any vegetation Objective - Vital Signs Vital signs: Vital Signs Temp 98.1 F 10/10/24 07:13 Pulse 75 10/10/24 07:13 Resp 16 10/10/24 07:13 BP 135/60 10/10/24 07:13 Pulse Ox 100 10/10/24 07:13 FiO2 Intake & Output 10/09/24 10/10/24 10/10/24 18:59 06:59 18:59 Intake Total 457 Output Total 501 901 140 Balance -44 -901 -140 Intake: Oral 457 Output: Urine 500 900 140 Stool 1 1 Other: Voiding Method External Catheter External Catheter # Voids 1 # Bowel Movements 1 - Exam GENERAL DESCRIPTION: An elderly male lying in bed in no distress RESPIRATORY SYSTEM: Unlabored breathing , decreased breath sounds at bases HEART: S1 S2 regular rate and rhythm , ABDOMEN: Soft , no tenderness EXTREMITIES: No edema feet - Labs CBC & Chem 7: 10/08/24 05:46 10/09/24 07:58 Labs: Abnormal Lab Results - Last 24 Hours (Table) 10/09/24 10/09/24 10/09/24 Range/Units 12:15 17:10 20:48 POC Glucose (mg/dL) 186 H 113 H 223 H (70-110) mg/dL Microbiology - Last 24 Hours (Table) 10/07/24 06:23 Blood Culture Gram Stain - Preliminary Blood Blood Culture - Preliminary Presumptive Staph aureus Molecular ID Assessment and Plan (1) Sepsis Current Visit: Yes Status: Acute Code(s): A41.9 - SEPSIS, UNSPECIFIED ORGANISM SNOMED Code(s): 36605086 (2) UTI (urinary tract infection) Current Visit: Yes Status: Acute Code(s): N39.0 - URINARY TRACT INFECTION, SITE NOT SPECIFIED SNOMED Code(s): 52753192 (3) Right arm cellulitis Current Visit: Yes Status: Acute Code(s): L03.113 - CELLULITIS OF RIGHT UPPER LIMB SNOMED Code(s): 29465369899180022 (4) SIRS (systemic inflammatory response syndrome) Current Visit: Yes Status: Acute Code(s): R65.10 - SIRS OF NON-INFECTIOUS ORIGIN W/O ACUTE ORGAN DYSFUNCTION SNOMED Code(s): 094116836 Plan: 1patient is in the hospital with sepsis in this patient who did have fever elevated white count source possible urinary versus right elbow area laceration with secondary cellulitis and will need to cover for both gram-positive as well as gram-negative pathogen. 2local culture from the right elbow laceration has been obtained a which are currently growing MSSA 3patient blood and urine cultures came back positive with MSSA ultrasound of the kidney bladder really did not show any hydronephrosis or nephrolithiasis 4patient repeat blood cultures on 10/07/2024 also came back positive echocardiogram did not show vegetation cardiology has been consulted for JOHN if negative I will obtain an WBC scan 5with persistent bacteremia will discontinue cefazolin start the patient on naficillin Dictation was produced using [employer] dictation software. please excuse any grammatical, word or spelling errors. Time with Patient: Less than 30
--- NOTE | 2024-10-10 17:37 | P.PN ---
Progress Note - Text Progress Note Date: 10/10/24 Chief Complaint: Falls 73-year-old gentleman, follows with Dr. Olivas. Chronic medical conditions include diabetes, hyperlipidemia, depression anxiety, CAD with bypass, cigarette smoker. 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 Patient stated patient yesterday morning started having falls. About 4 5 times. Even bumped his head. Decreased appetite. Noticed above fever. He denies any respiratory urinary symptoms. In the ER was found to have elevated white count and a UA came back to be positive. October 05: Saw the patient this morning overflowing the ER. In a recliner. Tired. Spoke to the nurse. Poor balance. PT OT consulted e. On IV ceftriaxone. Blood cultures come back showing gram-positive cocci in clusters. Per ID vancomycin added. October 06: Had a good breakfast.Awaiting input from PT OT. Blood and urine cultures positive for presumptive Staph aureus. ID following. No fever October 07: Seen by PT OT yesterday. Seems to be unsteady on the feet. May need rehab. Accu-Cheks been running high. Glucotrol added. Blood pressure running on the higher side. Lopressor increased to 50 mg twice daily. Stop IV fluids. Eating fair. Blood culture and urine finalized for MSSA this evening. Antibiotics switched over to IV cefazolin October 08: Rather sleepy. Patient's was Zoloft and Abilify been switched to p.m. On IV cefazolin. Spoke to the nurse to get the patient up in a chair. Replace potassium. Looking into rehab. For blood pressure increase Lopressor to 100 mg twice daily. October 09: Patient Zoloft and Abilify was switched to the p.m. dose. Patient far more awake today. Up in a chair. Getting IV cefazolin. Repeat blood cultures from October 07 positive. Another set of blood cultures ordered. 2D echo unremarkable., No vegetations reported. Eating more than 50%. Right elbo w wound is superficial. Bacitracin ointment with dressing October 10: Patient seen this morning. Was pending JOHN. Because of repeated positive blood cultures. Later this afternoon patient underwent a JOHN. No evidence of any vegetations. Done by Dr. Alvarado. Repeat blood cultures from yesterday pending. ID switched over to IV nafcillin. Tolerating diet Active Medications Acetaminophen (Acetaminophen Tab 325 Mg Tab) 650 mg PO Q6HR PRN PRN Reason: Mild Pain or Fever > 100.5 Last Admin: 10/09/24 09:18 Dose: 650 mg Aripiprazole (Aripiprazole 2 Mg Tab) 2 mg PO [facility] Last Admin: 10/09/24 21:45 Dose: 2 mg Aspirin (Aspirin 81 Mg) 81 mg PO DAILY [facility] Last Admin: 10/10/24 08:43 Dose: 81 mg Atorvastatin Calcium (Atorvastatin 40 Mg Tab) 40 mg PO DAILY [facility] Last Admin: 10/10/24 08:43 Dose: 40 mg Bacitracin (Bacitracin Oint 1 Each Packet) 1 each TOPICAL TID [facility]; Protocol Last Admin: 10/10/24 16:44 Dose: 1 each Benzocaine (Benzocaine [place] 1 Can) 1 spray TOPICAL TID PRN PRN Reason: Skin Irritation Bupropion HCl (Bupropion Xl 300 Mg Tab.Er.24h) 300 mg PO [facility] Last Admin: 10/09/24 21:45 Dose: 300 mg Calcium Carbonate/Glycine (Calcium Carbonate 500 Mg Chewable) 1,000 mg PO Q4HR PRN PRN Reason: Dyspepsia Clopidogrel Bisulfate (Clopidogrel 75 Mg Tab) 75 mg PO DAILY [facility] Last Admin: 10/10/24 08:44 Dose: 75 mg Dextrose/Water (Dextrose 50% Syringe 50 Ml) 25 ml IVP PER PROTOCOL PRN; Protocol PRN Reason: Hypoglycemia Dextrose/Water (Dextrose 50% Syringe 50 Ml) 50 ml IVP PER PROTOCOL PRN; Protocol PRN Reason: Hypoglycemia Enoxaparin Sodium (Enoxaparin 40 Mg/0.4 Ml Syringe) 40 mg SQ [facility] Last Admin: 10/09/24 21:44 Dose: 40 mg Fentanyl Citrate (Fentanyl (Pf) 50 Mcg/Ml 5 Ml Amp) 50 mcg IVP ONCE PRN PRN Reason: Pre-Op Stop: 10/11/24 01:38 Folic Acid (Folic Acid 1 Mg Tab) 1 mg PO DAILY [facility] Last Admin: 10/10/24 08:43 Dose: 1 mg Glipizide (Glipizide 10 Mg Tab) 10 mg PO AC-BID [facility] Last Admin: 10/10/24 08:30 Dose: Not Given Nafcillin Sodium 2 gm/ (Dextrose/Water) 100 mls @ 50 mls/hr IVPB Q4HR [facility]; Protocol Insulin Aspart (Insulin Aspart (Novolog) 100 Unit/Ml Vial) 0 unit SQ ACHS [facility]; Protocol Last Admin: 10/10/24 12:43 Dose: Not Given Lactulose (Lactulose 20 Gm/30 Ml Cup) 20 gm PO DAILY PRN PRN Reason: Constipation Losartan Potassium (Losartan 50 Mg Tab) 100 mg PO HS [facility] Last Admin: 10/09/24 21:44 Dose: 100 mg Metformin HCl (Metformin 500 Mg Tab) 1,000 mg PO BID-W/MEALS [facility] Last Admin: 10/10/24 08:30 Dose: Not Given Metoprolol Tartrate (Metoprolol Tartrate 50 Mg Tab) 100 mg PO BID [facility] Last Admin: 10/10/24 08:43 Dose: 100 mg Midazolam HCl (Midazolam 2 Mg/2 Ml Vial) 1 mg IV ONCE PRN PRN Reason: Pre-Op Stop: 10/11/24 01:38 Naloxone HCl (Naloxone 0.4 Mg/Ml 1 Ml Vial) 0.2 mg IV Q2M PRN PRN Reason: Opioid Reversal Nicotine (Nicotine 14mg/24hr Patch) 1 patch TRANSDERM DAILY [facility] Last Admin: 10/10/24 08:44 Dose: Not Given Ondansetron HCl (Ondansetron 4 Mg/2 Ml Vial) 4 mg IVP Q8HR PRN PRN Reason: Nausea And Vomiting Pioglitazone HCl (Pioglitazone 30 Mg Tab) 30 mg PO DAILY [facility] Last Admin: 10/10/24 08:44 Dose: 30 mg Social history: Lives alone. Smokes about half pack a day for many years. Physical examination: VITAL SIGNS: 97.8, 68, 16, 146/72, 97% GENERAL: [BMI 24.4, resting in bed EYES: Pupils equal. Conjunctiva gia l. HEENT: External appearance of nose and ears normal, oral cavity grossly normal. NECK: JVD not raised; masses not palpable. HEART: First and second heart sounds are normal; no edema. LUNGS: Respiratory rate normal; clear to auscultation. ABDOMEN: Soft, nontender, liver spleen not palpable, no masses palpable. PSYCH: Answering questions. s. MUSCULOSKELETAL:No Clubbing/cyanosis;muscles-grossly intact. Some loss of muscle mass INVESTIGATIONS, reviewed in the clinical context: JOHN [October 10] negative for vegetations 2D echo: Negative for vegetations October 09: Cortisol 16.9 October 08: White count 4.7 hemoglobin 10.6 sodium 131 creatinine 0.59 October 07: White count 15.5 hemoglobin 11.5 platelets 44 October 05: White count 20.2 hemoglobin 12.4 platelets 425 sodium 127 potassium 3.2 creatinine 0.63 Blood culture: Gram-MSSA. Urine culture: MSSA October 04, 2024: White count 20.6 hemoglobin 12.9 platelets 417 sodium 129 potassium 3.7 bicarb 18 creatinine 0.75 blood glucose 282 Troponin I less than 0.012 Influenza type A, type B, RSV, COVID-19: Not detected UA positive for protein 1+ glucose 4+ ketone 4+ blood moderate urine nitrite positive leukoesterase small WBC 33 CT head cervical spine: Negative for fracture Chest x-ray film personally reviewed by me-some interstitial prominence Assessment and plan: -Acute UTI, with sepsis with blood cultures positive for MSSA.: IV cefazolin. Ceftriaxone discontinued -Sepsis with positive blood cultures: MSSA, likely source bladder: Uncontrolled Blood culture positive from October 04 and also from October 07. Repeat blood culture ordered October 09 2D echo and JOHN: Negative for vegetations IV cefazolin changed to IV nafcillin October 10 ID following -Diabetes mellitus type 2: On oral hypoglycemic Metformin and Actos. Follow Accu-Cheks Glucotrol 10 mg twice daily -Hyponatremia likely hypovolemia from decreased oral intake: IV fluids. Fluid restriction 1500 cc a day -Hyperlipidemia Lipitor -Essential hypertension, controlled losartan 100 mg nightly Lopressor to 100 mg twice daily -Depression and anxiety Wellbutrin XL, Celexa -Chronic nicotine dependence, cigarette smoker Nicotine patch -Gait dysfunction apparently from previous stroke. 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
[2024-10-10 18:19] LABS: Glucose,Whole Blood 272 mg/dL (70-110)
[2024-10-10 21:03] LABS: Glucose,Whole Blood 206 mg/dL (70-110)
[2024-10-10] MEDS: NAFCILLIN 2 GM in DEXTROSE 5% IN WATER 100 ML IVPB SCH (21:36)
[2024-10-11 06:02] LABS: Glucose,Whole Blood 173 mg/dL (70-110)
[2024-10-11 06:29] LABS: Basophils % (A) 0 %; Eosinophils # (A) 0.1 k/uL (0-0.7); Eosinophils % (A) 1 %; HCT 37.3 % (39.0-53.0); HGB 12.1 gm/dL (13.0-17.5); Lymphocytes # (A) 1.5 k/uL (1.0-4.8); Lymphocytes % (A) 14 %; MCH 29.3 pg (25.0-35.0); MCHC 32.4 g/dL (31.0-37.0); MCV 90.6 fL (80.0-100.0); Mean Platelet Volume 6.6; Monocytes # (A) 0.5 k/uL (0-1.0); Monocytes % (A) 4 %; Neutrophils # (A) 8.9 k/uL (1.3-7.7); Neutrophils % (A) 80 %; Platelet Count 686 k/uL (150-450); RBC 4.11 m/uL (4.30-5.90); RDW 13.8 % (11.5-15.5); WBC 11.2 k/uL (3.8-10.6)
[2024-10-11 08:46] LABS: ALT 31 U/L (10-49); AST 50 U/L (14-35); Albumin 2.6 g/dL (3.8-4.9); Albumin/Globulin Ratio 0.93 Ratio (1.60-3.17); Alkaline Phosphatase 100 U/L (41-126); BUN/Creat Ratio 12.86 Ratio (12.00-20.00); Calcium 7.7 mg/dL (8.7-10.3); Carbon Dioxide 30.5 mmol/L (21.6-31.8); Chloride 93 mmol/L (96-109); Globulin 2.8 g/dL (1.6-3.3); Glucose 132 mg/dL (70-110); Potassium 3.3 mmol/L (3.5-5.5); Sodium 135 mmol/L (135-145); Total Bilirubin 0.3 mg/dL (0.3-1.2); Total Protein 5.4 g/dL (6.2-8.2)
[2024-10-11] MEDS: hydroCHLOROthiazide 25 MG TAB PO SCH (09:36)
[2024-10-11 11:00] LABS: Erythrocyte Sedimentation Rate 27 mm/Hr (0-20)
--- NOTE | 2024-10-11 11:03 | P.PN ---
Subjective Progress Note Date: 10/11/24 Reason for Consult (text): JOHN r/o vegetation History of present illness: This is a 74-year-old male with past medical history of coronary artery disease with 5 vessel CABG details are not available, diabetes mellitus type 2, hyperlipidemia, tobacco use and dependence. We have been asked to evaluate the patient for JOHN for vegetation. Patient states that he came into the hospital due to frequent falls and passing out at home. He currently lives alone. He denies having any chest pain or shortness of breath. Patient was admitted to the hospital on 10/04 right upper extremity cellulitis for which wound cultures positive for MSSA and also is MSSA bacteremic. Blood pressure 135/60, heart rate 75, pulse ox 100% on room air. Patient follows with a news technical director out of the area and he has not been seen by his news technical director for greater than 2 years. -EKG: Sinus rhythm, incomplete right bundle branch block, nonspecific ST changes. -Chest x-ray: Perhaps mild bilateral interstitial edema. No suspicious acute focal infiltrate. -Laboratory studies: WBC currently 14.7, hemoglobin 10.6, sodium 131, potassium 3, BUN 8 and creatinine 0.59. Cortisol level 16.9. Cepheid viral panel not detected. Troponin negative x 1. -Home cardiac medications: Aspirin 81 mg daily, Plavix 75 mg daily, rosuvastatin 20 mg daily. -Echocardiogram reveals technically difficult study for interpretation. Normal biventricular function. 10/11 Patient seen and examined. Yesterday patient underwent JOHN which showed no evidence of infective endocarditis, intact intracardiac valves, intact left atrial appendage and intact interatrial septum, normal biventricular systolic function, no evidence of pericardial effusion. Patient noted to have high blood pressure readings for which we will add in hydrochlorothiazide. Blood pressure this morning 172/85, heart rate is in the 60s and 70s, pulse ox 96% on room air. Repeat blood work reveals hemoglobin 12.1, potassium 3.3. Physical examination: Gen: This is a 74-year-old male in no acute distress VS: reviewed HEENT: Head is atraumatic, normocephalic. Pupils equal, round. Sclerae is anicteric. NECK: Supple. No JVD. LUNGS: Clear to auscultation. No wheezes or rhonchi. No intercostal retractions. HEART: Regular rate and rhythm. No murmur. ABDOMEN: Soft No tenderness. EXTREMITIES: No pedal edema. No calf tenderness. NEUROLOGICAL: Patient is awake, alert and oriented to person and place. Assessment: Sepsis Bacteremia--- no evidence of infective endocarditis on JOHN Right elbow cellulitis Possible UTI Metabolic encephalopathy History of coronary artery disease with 5 vessel CABG as reported by the patient Diabetes mellitus type 2 Hyperlipidemia Tobacco use and dependence Plan: Continue current cardiac medications: Aspirin 81 mg daily, atorvastatin, Plavix, losartan 100 mg at bedtime Replace potassium Start patient on hydrochlorothiazide 25 mg daily No further cardiac workup at this time. Cardiology will sign off this case and follow on an as-needed basis. Please reconsult for any new concerns. Patient may follow-up in the office in one to 2 weeks. Nurse practitioner note has been reviewed, I agree with documented findings and plan of care. Patient was seen and examined. Objective - Vital Signs Vital signs: Vital Signs Temp 98.3 F 10/11/24 07:00 Pulse 68 10/11/24 07:00 Resp 16 10/11/24 07:00 BP 172/85 10/11/24 07:00 Pulse Ox 96 10/11/24 07:00 FiO2 Intake & Output 10/10/24 10/11/24 10/11/24 18:59 06:59 18:59 Intake Total 218 Output Total 640 200 Balance -422 -200 Intake: IV 100 Oral 118 Output: Urine 640 200 Other: Voiding Method External Catheter # Voids 3 - Labs CBC & Chem 7: 10/11/24 05:51 10/11/24 05:51 Labs: Abnormal Lab Results - Last 24 Hours (Table) 10/10/24 10/10/24 10/10/24 Range/Units 11:43 18:17 21:01 WBC (3.8-10.6) k/uL RBC (4.30-5.90) m/uL Hgb (13.0-17.5) gm/dL Hct (39.0-53.0) % Plt Count (150-450) k/uL Neutrophils # (1.3-7.7) k/uL POC Glucose (mg/dL) 136 H 272 H 206 H (70-110) mg/dL 10/11/24 10/11/24 Range/Units 05:51 06:01 WBC 11.2 H (3.8-10.6) k/uL RBC 4.11 L (4.30-5.90) m/uL Hgb 12.1 L (13.0-17.5) gm/dL Hct 37.3 L (39.0-53.0) % Plt Count 686 H (150-450) k/uL Neutrophils # 8.9 H (1.3-7.7) k/uL POC Glucose (mg/dL) 173 H (70-110) mg/dL Microbiology - Last 24 Hours (Table) 10/07/24 06:23 Blood Culture Gram Stain - Final Blood Blood Culture - Final Staphylococcus aureus Molecular ID 10/09/24 10:47 Blood Culture - Preliminary Blood
[2024-10-11] MEDS: POTASSIUM CHLORIDE ER 20 MEQ TAB.ER PO STA (11:39)
[2024-10-11] MEDS: LACTULOSE 20 GM/30 ML CUP PO ONE (11:40)
[2024-10-11 11:56] LABS: Glucose,Whole Blood 184 mg/dL (70-110)
--- NOTE | 2024-10-11 12:28 | P.PN ---
Subjective Progress Note Date: 10/11/24 Principal diagnosis: Reason for follow-up is MSSA UTI bacteremia Patient is a 74-year-old male with a past medical history significant for diabetes mellitus hypertension hyperlipidemia patient has been brought into the hospital for evaluation of weakness and apparently the patient did have multiple falls, he did have a positive UA and there was concern for possible l eft upper extremity cellulitis with a wound culture documented positive with MSSA both in the blood in the urine. On today's evaluation that is 10/11/2024,the patient denies any fever or any chills, patient is breathing comfortably on room air, the patient denies chest pain shortness of breath and no significant cough, patient denies abdominal pain, no nausea vomiting or diarrhea.. Patient white count is down to 11.2, creatinine 0.7 blood culture from 217 so far pending JOHN did not show any vegetation. Objective - Vital Signs Vital signs: Vital Signs Temp 98.3 F 10/11/24 07:00 Pulse 68 10/11/24 07:00 Resp 16 10/11/24 09:30 BP 172/85 10/11/24 07:00 Pulse Ox 96 10/11/24 07:00 FiO2 Intake & Output 10/10/24 10/11/24 10/11/24 18:59 06:59 18:59 Intake Total 218 Output Total 640 375 Balance -422 -375 Intake: IV 100 Oral 118 Output: Urine 640 375 Other: Voiding Method External Catheter External Catheter # Voids 3 - Exam GENERAL DESCRIPTION: An elderly male lying in bed in no distress RESPIRATORY SYSTEM: Unlabored breathing , decreased breath sounds at bases HEART: S1 S2 regular rate and rhythm , ABDOMEN: Soft , no tenderness EXTREMITIES: No edema feet - Labs CBC & Chem 7: 10/11/24 05:51 10/11/24 05:51 Labs: Abnormal Lab Results - Last 24 Hours (Table) 10/10/24 10/10/24 10/11/24 Range/Units 18:17 21:01 05:51 WBC 11.2 H (3.8-10.6) k/uL RBC 4.11 L (4.30-5.90) m/uL Hgb 12.1 L (13.0-17.5) gm/dL Hct 37.3 L (39.0-53.0) % Plt Count 686 H (150-450) k/uL Neutrophils # 8.9 H (1.3-7.7) k/uL ESR 27 H (0-20) mm/Hr Potassium (3.5-5.5) mmol/L Chloride (96-109) mmol/L Glucose (70-110) mg/dL POC Glucose (mg/dL) 272 H 206 H (70-110) mg/dL Calcium (8.7-10.3) mg/dL AST (14-35) U/L C-Reactive Protein (0.00-0.80) mg/dL Total Protein (6.2-8.2) g/dL Albumin (3.8-4.9) g/dL Albumin/Globulin Ratio (1.60-3.17) Ratio 10/11/24 10/11/24 10/11/24 Range/Units 05:51 06:01 11:55 WBC (3.8-10.6) k/uL RBC (4.30-5.90) m/uL Hgb (13.0-17.5) gm/dL Hct (39.0-53.0) % Plt Count (150-450) k/uL Neutrophils # (1.3-7.7) k/uL ESR (0-20) mm/Hr Potassium 3.3 L (3.5-5.5) mmol/L Chloride 93 L (96-109) mmol/L Glucose 132 H (70-110) mg/dL POC Glucose (mg/dL) 173 H 184 H (70-110) mg/dL Calcium 7.7 L (8.7-10.3) mg/dL AST 50 H (14-35) U/L C-Reactive Protein 8.40 H (0.00-0.80) mg/dL Total Protein 5.4 L (6.2-8.2) g/dL Albumin 2.6 L (3.8-4.9) g/dL Albumin/Globulin Ratio 0.93 L (1.60-3.17) Ratio Microbiology - Last 24 Hours (Table) 10/07/24 06:23 Blood Culture Gram Stain - Final Blood Blood Culture - Final Staphylococcus aureus Molecular ID 10/09/24 10:47 Blood Culture - Preliminary Blood Assessment and Plan (1) Sepsis Current Visit: Yes Status: Acute Code(s): A41.9 - SEPSIS, UNSPECIFIED ORGANISM SNOMED Code(s): 26545281 (2) UTI (urinary tract infection) Current Visit: Yes Status: Acute Code(s): N39.0 - URINARY TRACT INFECTION, SITE NOT SPECIFIED SNOMED Code(s): 21114268 (3) Right arm cellulitis Current Visit: Yes Status: Acute Code(s): L03.113 - CELLULITIS OF RIGHT UPPER LIMB SNOMED Code(s): 03234282314425723 (4) SIRS (systemic inflammatory response syndrome) Current Visit: Yes Status: Acute Code(s): R65.10 - SIRS OF NON-INFECTIOUS ORIGIN W/O ACUTE ORGAN DYSFUNCTION SNOMED Code(s): 083776356 Plan: 1patient is in the hospital with sepsis in this patient who did have fever elevated white count source possible urinary versus right elbow area laceration with secondary cellulitis and will need to cover for both gram-positive as well as gram-negative pathogen. 2local culture from the right elbow laceration has been obtained a which are currently growing MSSA 3patient blood and urine cultures came back positive with MSSA ultrasound of the kidney bladder really did not show any hydronephrosis or nephrolithiasis 4patient repeat blood cultures on 10/07/2024 also came back positive echocardi ogram did not show vegetation patient did have JOHN that was negative for any vegetation tissues intact intracardiac pacemaker leads 5patient has been started on naficillin as of yesterday to continue wait for the WBC scan to be finalized Dictation was produced using [employer] dictation software. please excuse any grammatical, word or spelling errors. Time with Patient: Less than 30
[2024-10-11 16:39] VITALS: BMI 24.4
[2024-10-11 17:24] LABS: Glucose,Whole Blood 185 mg/dL (70-110)
--- NOTE | 2024-10-11 18:20 | P.PN ---
Progress Note - Text Progress Note Date: 10/11/24 Chief Complaint: Falls 73-year-old gentleman, follows with Dr. Olivas. Chronic medical conditions include diabetes, hyperlipidemia, depression anxiety, CAD with bypass, cigarette smoker. 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 Patient stated patient yesterday morning started having falls. About 4 5 times. Even bumped his head. Decreased appetite. Noticed above fever. He denies any respiratory urinary symptoms. In the ER was found to have elevated white count and a UA came back to be positive. October 05: Saw the patient this morning overflowing the ER. In a recliner. Tired. Spoke to the nurse. Poor balance. PT OT consulted e. On IV ceftriaxone. Blood cultures come back showing gram-positive cocci in clusters. Per ID vancomycin added. October 06: Had a good breakfast.Awaiting input from PT OT. Blood and urine cultures positive for presumptive Staph aureus. ID following. No fever October 07: Seen by PT OT yesterday. Seems to be unsteady on the feet. May need rehab. Accu-Cheks been running high. Glucotrol added. Blood pressure running on the higher side. Lopressor increased to 50 mg twice daily. Stop IV fluids. Eating fair. Blood culture and urine finalized for MSSA this evening. Antibiotics switched over to IV cefazolin October 08: Rather sleepy. Patient's was Zoloft and Abilify been switched to p.m. On IV cefazolin. Spoke to the nurse to get the patient up in a chair. Replace potassium. Looking into rehab. For blood pressure increase Lopressor to 100 mg twice daily. October 09: Patient Zoloft and Abilify was switched to the p.m. dose. Patient far more awake today. Up in a chair. Getting IV cefazolin. Repeat blood cultures from October 07 positive. Another set of blood cultures ordered. 2D echo unremarkable., No vegetations reported. Eating more than 50%. Right elbo w wound is superficial. Bacitracin ointment with dressing October 10: Patient seen this morning. Was pending JOHN. Because of repeated positive blood cultures. Later this afternoon patient underwent a JOHN. No evidence of any vegetations. Done by Dr. Alvarado. Repeat blood cultures from yesterday pending. ID switched over to IV nafcillin. Tolerating diet October 11: Repeat blood cultures pending. Otherwise tolerating diet. Getting antibiotics. On IV nafcillin. Eating fair Active Medications Acetaminophen (Acetaminophen Tab 325 Mg Tab) 650 mg PO Q6HR PRN PRN Reason: Mild Pain or Fever > 100.5 Last Admin: 10/09/24 09:18 Dose: 650 mg Aripiprazole (Aripiprazole 2 Mg Tab) 2 mg PO HS [facility] Last Admin: 10/10/24 21:37 Dose: 2 mg Aspirin (Aspirin 81 Mg) 81 mg PO DAILY [facility] Last Admin: 10/11/24 09:36 Dose: 81 mg Atorvastatin Calcium (Atorvastatin 40 Mg Tab) 40 mg PO DAILY [facility] Last Admin: 10/11/24 09:36 Dose: 40 mg Bacitracin (Bacitracin Oint 1 Each Packet) 1 each TOPICAL TID [facility]; Protocol Last Admin: 10/11/24 16:39 Dose: 1 each Benzocaine (Benzocaine [place] 1 Can) 1 spray TOPICAL TID PRN PRN Reason: Skin Irritation Bupropion HCl (Bupropion Xl 300 Mg Tab.Er.24h) 300 mg PO [facility] Last Admin: 10/10/24 21:37 Dose: 300 mg Calcium Carbonate/Glycine (Calcium Carbonate 500 Mg Chewable) 1,000 mg PO Q4HR PRN PRN Reason: Dyspepsia Clopidogrel Bisulfate (Clopidogrel 75 Mg Tab) 75 mg PO DAILY [facility] Last Admin: 10/11/24 09:36 Dose: 75 mg Dextrose/Water (Dextrose 50% Syringe 50 Ml) 25 ml IVP PER PROTOCOL PRN; Protoc ol PRN Reason: Hypoglycemia Dextrose/Water (Dextrose 50% Syringe 50 Ml) 50 ml IVP PER PROTOCOL PRN; Protocol PRN Reason: Hypoglycemia Enoxaparin Sodium (Enoxaparin 40 Mg/0.4 Ml Syringe) 40 mg SQ HS [facility] Last Admin: 10/10/24 21:37 Dose: 40 mg Folic Acid (Folic Acid 1 Mg Tab) 1 mg PO DAILY [facility] Last Admin: 10/11/24 09:36 Dose: 1 mg Glipizide (Glipizide 10 Mg Tab) 10 mg PO AC-BID [facility] Last Admin: 10/11/24 16:39 Dose: 10 mg Hydrochlorothiazide (Hydrochlorothiazide 25 Mg Tab) 25 mg PO DAILY [facility] Last Admin: 10/11/24 09:36 Dose: 25 mg Nafcillin Sodium 2 gm/ (Dextrose/Water) 100 mls @ 50 mls/hr IVPB Q4HR [facility]; Protocol Last Admin: 10/11/24 16:38 Dose: 50 mls/hr Insulin Aspart (Insulin Aspart (Novolog) 100 Unit/Ml Vial) 0 unit SQ ACHS [facility]; Protocol Last Admin: 10/11/24 17:34 Dose: 2 unit Lactulose (Lactulose 20 Gm/30 Ml Cup) 20 gm PO DAILY PRN PRN Reason: Constipation Losartan Potassium (Losartan 50 Mg Tab) 100 mg PO HS [facility] Last Admin: 10/10/24 21:36 Dose: 100 mg Metformin HCl (Metformin 500 Mg Tab) 1,000 mg PO BID-W/MEALS [facility] Last Admin: 10/11/24 16:39 Dose: 1,000 mg Metoprolol Tartrate (Metoprolol Tartrate 50 Mg Tab) 100 mg PO BID [facility] Last Admin: 10/11/24 09:36 Dose: 100 mg Naloxone HCl (Naloxone 0.4 Mg/Ml 1 Ml Vial) 0.2 mg IV Q2M PRN PRN Reason: Opioid Reversal Nicotine (Nicotine 14mg/24hr Patch) 1 patch TRANSDERM DAILY [facility] Last Admin: 10/11/24 09:36 Dose: 1 patch Ondansetron HCl (Ondansetron 4 Mg/2 Ml Vial) 4 mg IVP Q8HR PRN PRN Reason: Nausea And Vomiting Pioglitazone HCl (Pioglitazone 30 Mg Tab) 30 mg PO DAILY [facility] Last Admin: 10/11/24 09:36 Dose: 30 mg Social history: Lives alone. Smokes about half pack a day for many years. Physical examination: VITAL SIGNS: 98.3, 64, 16, 159 x 70, 96% room air GENERAL: [BMI 24.4, comfortable in chair EYES: Pupils equal. Conjunctiva gia l. HEENT: External appearance of nose and ears normal, oral cavity grossly normal. NECK: JVD not raised; masses not palpable. HEART: First and second heart sounds are normal; no edema. LUNGS: Respiratory rate normal; clear to auscultation. ABDOMEN: Soft, nontender, liver spleen not palpable, no masses palpable. PSYCH: Answering questions. Appropriately MUSCULOSKELETAL:No Clubbing/cyanosis;muscles-grossly intact. Some loss of muscle mass INVESTIGATIONS, reviewed in the clinical context: October 11: White count 11.2 hemoglobin 12.1 platelets 66 potassium 3.3 creatinine 0.7 JOHN [October 10] negative for vegetations 2D echo: Negative for vegetations October 09: Cortisol 16.9 October 08: White count 4.7 hemoglobin 10.6 sodium 131 creatinine 0.59 October 07: White count 15.5 hemoglobin 11.5 platelets 44 October 05: White count 20.2 hemoglobin 12.4 platelets 425 sodium 127 potassium 3.2 creatinine 0.63 Blood culture: Gram-MSSA. Urine culture: MSSA October 04, 2024: White count 20.6 hemoglobin 12.9 platelets 417 sodium 129 potassium 3.7 bicarb 18 creatinine 0.75 blood glucose 282 Troponin I less than 0.012 Influenza type A, type B, RSV, COVID-19: Not detected UA positive for protein 1+ glucose 4+ ketone 4+ blood moderate urine nitrite positive leukoesterase small WBC 33 CT head cervical spine: Negative for fracture Chest x-ray film personally reviewed by me-some interstitial prominence Assessment and plan: -Acute UTI, with sepsis with blood cultures positive for MSSA.: IV nafcillin. -Sepsis with positive blood cultures: MSSA, likely source bladder: Blood culture positive from October 04 and also from October 07. Repeat blood culture ordered October 09: Pending 2D echo and JOHN: Negative for vegetations IV nafcillin October 10 ID following -Diabetes mellitus type 2: On oral hypoglycemic Metformin and Actos. Follow Accu-Cheks Glucotrol 10 mg twice daily -Hyponatremia likely hypovolemia from decreased oral intake: IV fluids. Fluid restriction 1500 cc a day -Hyperlipidemia Lipitor -Essential hypertension, controlled losartan 100 mg nightly Lopressor to 100 mg twice daily -Depression and anxiety Wellbutrin XL, Celexa -Chronic nicotine dependence, cigarette smoker Nicotine patch -Gait dysfunction apparently from previous stroke. 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
[2024-10-11 19:42] LABS: Glucose,Whole Blood 132 mg/dL (70-110)
[2024-10-12 06:18] LABS: Glucose,Whole Blood 145 mg/dL (70-110)
[2024-10-12 12:45] LABS: Glucose,Whole Blood 178 mg/dL (70-110)
--- NOTE | 2024-10-12 14:46 | P.PN ---
Subjective Progress Note Date: 10/12/24 Principal diagnosis: Reason for follow-up is MSSA UTI bacteremia Patient is a 74-year-old male with a past medical history significant for diabetes mellitus hypertension hyperlipidemia patient has been brought into the hospital for evaluation of weakness and apparently the patient did have multiple falls, he did have a positive UA and there was concern for possible l eft upper extremity cellulitis with a wound culture documented positive with MSSA both in the blood in the urine. On today's evaluation that is 10/12/2024,the patient remains to be afebrile, patient is on room air not requiring supplemental oxygen and denies any shortness of breath no chest pain or cough.Patient denies having any nausea or vomiting, no abdominal pain and no diarrhea has been reported No new lab has been repeated today blood culture repeat so far negative Objective - Vital Signs Vital signs: Vital Signs Temp 98.9 F 10/12/24 07:00 Pulse 69 10/12/24 07:00 Resp 16 10/12/24 08:40 BP 164/70 10/12/24 07:00 Pulse Ox 95 10/12/24 07:00 FiO2 Intake & Output 10/11/24 10/12/24 10/12/24 18:59 06:59 18:59 Intake Total 118 240 0 Output Total 676 1 1 Balance -558 239 -1 Weight 81.647 kg Intake: Oral 118 240 0 Output: Urine 675 Stool 1 1 1 Other: Voiding Method External Catheter External Catheter External Catheter # Voids 1 2 # Bowel Movements 1 1 - Exam GENERAL DESCRIPTION: An elderly male lying in bed in no distress RESPIRATORY SYSTEM: Unlabored breathing , decreased breath sounds at bases HEART: S1 S2 regular rate and rhythm , ABDOMEN: Soft , no tenderness EXTREMITIES: No edema feet - Labs CBC & Chem 7: 10/11/24 05:51 10/11/24 05:51 Labs: Abnormal Lab Results - Last 24 Hours (Table) 10/11/24 10/11/24 10/11/24 Range/Units 05:51 11:55 17:23 ESR 27 H (0-20) mm/Hr POC Glucose (mg/dL) 184 H 185 H (70-110) mg/dL 10/11/24 10/12/24 Range/Units 19:40 06:17 ESR (0-20) mm/Hr POC Glucose (mg/dL) 132 H 145 H (70-110) mg/dL Microbiology - Last 24 Hours (Table) 10/09/24 10:47 Blood Culture - Preliminary Blood 10/07/24 06:23 Blood Culture Gram Stain - Final Blood Blood Culture - Final Staphylococcus aureus Molecular ID Assessment and Plan (1) Sepsis Current Visit: Yes Status: Acute Code(s): A41.9 - SEPSIS, UNSPECIFIED ORGANISM SNOMED Code(s): 58728285 (2) UTI (urinary tract infection) Current Visit: Yes Status: Acute Code(s): N39.0 - URINARY TRACT INFECTION, SITE NOT SPECIFIED SNOMED Code(s): 65863224 (3) Right arm cellulitis Current Visit: Yes Status: Acute Code(s): L03.113 - CELLULITIS OF RIGHT UPPER LIMB SNOMED Code(s): 74628282990247581 (4) SIRS (systemic inflammatory response syndrome) Current Visit: Yes Status: Acute Code(s): R65.10 - SIRS OF NON-INFECTIOUS ORIGIN W/O ACUTE ORGAN DYSFUNCTION SNOMED Code(s): 479364357 Plan: 1patient is in the hospital with sepsis in this patient who did have fever elevated white count source possible urinary versus right elbow area laceration with secondary cellulitis and will need to cover for both gram-positive as well as gram-negative pathogen. 2local culture from the right elbow laceration has been obtained a which are currently growing MSSA 3patient blood and urine cultures came back positive with MSSA ultrasound of the kidney bladder really did not show any hydronephrosis or nephrolithiasis 4patient repeat blood cultures on 10/07/2024 also came back positive echocardiogram did not show vegetation patient did have JOHN that was negative for any vegetation tissues intact intracardiac pacemaker leads 5patient has been started on naficillin blood culture repeat currently negative waiting for WBC scan to be finalized Dictation was produced using [employer] dictation software. please excuse any grammatical, word or spelling errors. Time with Patient: Less than 30
--- NOTE | 2024-10-12 17:30 | NM ---
EXAMINATION TYPE: NM WBC whole body DATE OF EXAM: 10/12/2024 COMPARISON: Chest x-ray 10/04/2024 is reviewed. CLINICAL INDICATION: Male, 74 years old with history of bacteremia , source; TECHNIQUE: Following administration of 15.8 mCi Tc99m Ceretec. Images obtained 3 hours post injecti on. FINDINGS: Normal physiological tracer activity is noted in the liver and spleen and in the bone marrow of the a xial and appendicular skeleton. No suspicious focal uptake identified. No suspicious area to suggest fever of unknown origin. IMPRESSION: Normal white blood cell scan. No evidence for abnormal tracer activity. [facility], , 10/12/2024 5:12 PM
[2024-10-12 17:37] LABS: Glucose,Whole Blood 153 mg/dL (70-110)
--- NOTE | 2024-10-12 20:15 | P.PN ---
Progress Note - Text Progress Note Date: 10/12/24 Chief Complaint: Falls 73-year-old gentleman, follows with Dr. Olivas. Chronic medical conditions include diabetes, hyperlipidemia, depression anxiety, CAD with bypass, cigarette smoker. 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 Patient stated patient yesterday morning started having falls. About 4 5 times. Even bumped his head. Decreased appetite. Noticed above fever. He denies any respiratory urinary symptoms. In the ER was found to have elevated white count and a UA came back to be positive. October 05: Saw the patient this morning overflowing the ER. In a recliner. Tired. Spoke to the nurse. Poor balance. PT OT consulted e. On IV ceftriaxone. Blood cultures come back showing gram-positive cocci in clusters. Per ID vancomycin added. October 06: Had a good breakfast.Awaiting input from PT OT. Blood and urine cultures positive for presumptive Staph aureus. ID following. No fever October 07: Seen by PT OT yesterday. Seems to be unsteady on the feet. May need rehab. Accu-Cheks been running high. Glucotrol added. Blood pressure running on the higher side. Lopressor increased to 50 mg twice daily. Stop IV fluids. Eating fair. Blood culture and urine finalized for MSSA this evening. Antibiotics switched over to IV cefazolin October 08: Rather sleepy. Patient's was Zoloft and Abilify been switched to p.m. On IV cefazolin. Spoke to the nurse to get the patient up in a chair. Replace potassium. Looking into rehab. For blood pressure increase Lopressor to 100 mg twice daily. October 09: Patient Zoloft and Abilify was switched to the p.m. dose. Patient far more awake today. Up in a chair. Getting IV cefazolin. Repeat blood cultures from October 07 positive. Another set of blood cultures ordered. 2D echo unremarkable., No vegetations reported. Eating more than 50%. Right elbo w wound is superficial. Bacitracin ointment with dressing October 10: Patient seen this morning. Was pending JOHN. Because of repeated positive blood cultures. Later this afternoon patient underwent a JOHN. No evidence of any vegetations. Done by Dr. Alvarado. Repeat blood cultures from yesterday pending. ID switched over to IV nafcillin. Tolerating diet October 11: Repeat blood cultures pending. Otherwise tolerating diet. Getting antibiotics. On IV nafcillin. Eating fair October 12: Be seen this morning. Repeat cultures still pending. Getting IV nafcillin. Eating fair. Working with PT OT. Active Medications Acetaminophen (Acetaminophen Tab 325 Mg Tab) 650 mg PO Q6HR PRN PRN Reason: Mild Pain or Fever > 100.5 Last Admin: 10/11/24 22:01 Dose: 650 mg Aripiprazole (Aripiprazole 2 Mg Tab) 2 mg PO HS [facility] Last Admin: 10/11/24 20:37 Dose: 2 mg Aspirin (Aspirin 81 Mg) 81 mg PO DAILY [facility] Last Admin: 10/12/24 08:43 Dose: 81 mg Atorvastatin Calcium (Atorvastatin 40 Mg Tab) 40 mg PO DAILY [facility] Last Admin: 10/12/24 08:44 Dose: 40 mg Bacitracin (Bacitracin Oint 1 Each Packet) 1 each TOPICAL TID [facility]; Protocol Last Admin: 10/12/24 16:41 Dose: 1 each Benzocaine (Benzocaine [place] 1 Can) 1 spray TOPICAL TID PRN PRN Reason: Skin Irritation Bupropion HCl (Bupropion Xl 300 Mg Tab.Er.24h) 300 mg PO [facility] Last Admin: 10/11/24 20:37 Dose: 300 mg Calcium Carbonate/Glycine (Calcium Carbonate 500 Mg Chewable) 1,000 mg PO Q4HR PRN PRN Reason: Dyspepsia Clopidogrel Bisulfate (Clopidogrel 75 Mg Tab) 75 mg PO DAILY [facility] Last Admin: 10/12/24 08:44 Dose: 75 mg Dextrose/Water (Dextrose 50% Syringe 50 Ml) 25 ml IVP PER PROTOCOL PRN; Protocol PRN Reason: Hypoglycemia Dextrose/Water (Dextrose 50% Syringe 50 Ml) 50 ml IVP PER PROTOCOL PRN; Protocol PRN Reason: Hypoglycemia Enoxaparin Sodium (Enoxaparin 40 Mg/0.4 Ml Syringe) 40 mg SQ [facility] Last Admin: 10/11/24 20:38 Dose: 40 mg Folic Acid (Folic Acid 1 Mg Tab) 1 mg PO DAILY [facility] Last Admin: 10/12/24 08:44 Dose: 1 mg Glipizide (Glipizide 10 Mg Tab) 10 mg PO AC-BID [facility] Last Admin: 10/12/24 16:40 Dose: 10 mg Hydrochlorothiazide (Hydrochlorothiazide 25 Mg Tab) 25 mg PO DAILY [facility] Last Admin: 10/12/24 08:44 Dose: 25 mg Nafcillin Sodium 2 gm/ (Dextrose/Water) 100 mls @ 50 mls/hr IVPB Q4HR [facility]; Protocol Last Admin: 10/12/24 16:40 Dose: 50 mls/hr Insulin Aspart (Insulin Aspart (Novolog) 100 Unit/Ml Vial) 0 unit SQ ACHS [facility]; Protocol Last Admin: 10/12/24 17:48 Dose: 2 unit Lactulose (Lactulose 20 Gm/30 Ml Cup) 20 gm PO DAILY PRN PRN Reason: Constipation Losartan Potassium (Losartan 50 Mg Tab) 100 mg PO HS [facility] Last Admin: 10/11/24 20:38 Dose: 100 mg Metformin HCl (Metformin 500 Mg Tab) 1,000 mg PO BID-W/MEALS [facility] Last Admin: 10/12/24 16:40 Dose: 1,000 mg Metoprolol Tartrate (Metoprolol Tartrate 50 Mg Tab) 100 mg PO BID [facility] Last Admin: 10/12/24 08:44 Dose: 100 mg Naloxone HCl (Naloxone 0.4 Mg/Ml 1 Ml Vial) 0.2 mg IV Q2M PRN PRN Reason: Opioid Reversal Nicotine (Nicotine 14mg/24hr Patch) 1 patch TRANSDERM DAILY [facility] Last Admin: 10/12/24 08:44 Dose: 1 patch Ondansetron HCl (Ondansetron 4 Mg/2 Ml Vial) 4 mg IVP Q8HR PRN PRN Reason: Nausea And Vomiting Pioglitazone HCl (Pioglitazone 30 Mg Tab) 30 mg PO DAILY [facility] Last Admin: 10/12/24 08:44 Dose: 30 mg Social history: Lives alone. Smokes about half pack a day for many years. Physical examination: VITAL SIGNS: 97.7, 63, 17, 128 x 62, 98% room air GENERAL: [BMI 24.4, comfortable in chair EYES: Pupils equal. Conjunctiva gia l. HEENT: External appearance of nose and ears normal, oral cavity grossly normal. NECK: JVD not raised; masses not palpable. HEART: First and second heart sounds are normal; no edema. LUNGS: Respiratory rate normal; clear to auscultation. ABDOMEN: Soft, nontender, liver spleen not palpable, no masses palpable. PSYCH: Answering questions. Appropriately MUSCULOSKELETAL:No Clubbing/cyanosis;muscles-grossly intact. Some loss of muscle mass INVESTIGATIONS, reviewed in the clinical context: October 11: White count 11.2 hemoglobin 12.1 platelets 66 potassium 3.3 creatinine 0.7 JOHN [October 10] negative for vegetations 2D echo: Negative for vegetations October 09: Cortisol 16.9 October 08: White count 4.7 hemoglobin 10.6 sodium 131 creatinine 0.59 October 07: White count 15.5 hemoglobin 11.5 platelets 44 October 05: White count 20.2 hemoglobin 12.4 platelets 425 sodium 127 potassium 3.2 creatinine 0.63 Blood culture: Gram-MSSA. Urine culture: MSSA October 04, 2024: White count 20.6 hemoglobin 12.9 platelets 417 sodium 129 potassium 3.7 bicarb 18 creatinine 0.75 blood glucose 282 Troponin I less than 0.012 Influenza type A, type B, RSV, COVID-19: Not detected UA positive for protein 1+ glucose 4+ ketone 4+ blood moderate urine nitrite positive leukoesterase small WBC 33 CT head cervical spine: Negative for fracture Chest x-ray film personally reviewed by me-some interstitial prominence Assessment and plan: -Acute UTI, with sepsis with blood cultures positive for MSSA.: IV nafcillin. -Sepsis with positive blood cultures: MSSA, likely source bladder: Blood culture positive from October 04 and also from October 07. Repeat blood culture ordered October 09: Pending 2D echo and JOHN: Negative for vegetations IV nafcillin October 10 ID following -Diabetes mellitus type 2: On oral hypoglycemic Metformin and Actos. Follow Accu-Cheks Glucotrol 10 mg twice daily -Hyponatremia likely hypovolemia from decreased oral intake: IV fluids. Fluid restriction 1500 cc a day -Hyperlipidemia Lipitor -Essential hypertension, controlled losartan 100 mg nightly Lopressor to 100 mg twice daily -Depression and anxiety Wellbutrin XL, Celexa -Chronic nicotine dependence, cigarette smoker Nicotine patch -Gait dysfunction apparently from previous stroke. 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
[2024-10-12 20:17] LABS: Glucose,Whole Blood 90 mg/dL (70-110)
[2024-10-13 05:44] LABS: Glucose,Whole Blood 104 mg/dL (70-110)
[2024-10-13 07:41] VITALS: RESP 16
[2024-10-13 12:20] LABS: Glucose,Whole Blood 171 mg/dL (70-110)
--- NOTE | 2024-10-13 12:47 | P.PN ---
Subjective Progress Note Date: 10/13/24 Principal diagnosis: Reason for follow-up is MSSA UTI bacteremia Patient is a 74-year-old male with a past medical history significant for diabetes mellitus hypertension hyperlipidemia patient has been brought into the hospital for evaluation of weakness and apparently the patient did have multiple falls, he did have a positive UA and there was concern for possible l eft upper extremity cellulitis with a wound culture documented positive with MSSA both in the blood in the urine. On today's evaluation that is 10/13/2024, the patient continues to be afebrile, the patient is on room air and breathing comfortably, the Pt denies having any chest pain or cough, the patient denies having any abdominal pain no vomiting or any diarrhea, no new symptoms. No new lab has been repeated today's blood culture from 10/09/2024 as well as 10/11/2024 has been negative Objective - Vital Signs Vital signs: Vital Signs Temp 97.4 F L 10/13/24 07:00 Pulse 62 10/13/24 07:00 Resp 16 10/13/24 07:00 BP 155/78 10/13/24 07:00 Pulse Ox 94 L 10/13/24 07:00 FiO2 Intake & Output 10/12/24 10/13/24 10/13/24 18:59 06:59 18:59 Intake Total 118 240 118 Output Total 51 301 200 Balance 67 -61 -82 Intake: Oral 118 240 118 Output: Urine 50 300 200 Stool 1 1 Other: Voiding Method External Catheter External Catheter # Voids 1 1 2 # Bowel Movements 1 - Exam GENERAL DESCRIPTION: An elderly male lying in bed in no distress RESPIRATORY SYSTEM: Unlabored breathing , decreased breath sounds at bases HEART: S1 S2 regular rate and rhythm , ABDOMEN: Soft , no tenderness EXTREMITIES: No edema feet - Labs CBC & Chem 7: 10/11/24 05:51 10/11/24 05:51 Labs: Abnormal Lab Results - Last 24 Hours (Table) 10/12/24 10/12/24 Range/Units 12:43 17:44 POC Glucose (mg/dL) 178 H 153 H (70-110) mg/dL Microbiology - Last 24 Hours (Table) 10/09/24 10:47 Blood Culture - Preliminary Blood 10/11/24 05:51 Blood Culture - Preliminary Blood Assessment and Plan (1) Sepsis Current Visit: Yes Status: Acute Code(s): A41.9 - SEPSIS, UNSPECIFIED ORGANISM SNOMED Code(s): 76212325 (2) UTI (urinary tract infection) Current Visit: Yes Status: Acute Code(s): N39.0 - URINARY TRACT INFECTION, SITE NOT SPECIFIED SNOMED Code(s): 91527565 (3) Right arm cellulitis Current Visit: Yes Status: Acute Code(s): L03.113 - CELLULITIS OF RIGHT UPPER LIMB SNOMED Code(s): 63721510136814225 (4) SIRS (systemic inflammatory response syndrome) Current Visit: Yes Status: Acute Code(s): R65.10 - SIRS OF NON-INFECTIOUS ORIGIN W/O ACUTE ORGAN DYSFUNCTION SNOMED Code(s): 462313604 Plan: 1patient is in the hospital with sepsis in this patient who did have fever elevated white count source possible urinary versus right elbow area laceration with secondary cellulitis and will need to cover for both gram-positive as well as gram-negative pathogen. 2local culture from the right elbow laceration has been obtained a which are currently growing MSSA 3patient blood and urine cultures came back positive with MSSA ultrasound of the kidney bladder really did not show any hydronephrosis or nephrolithiasis 4patient repeat blood cultures on 10/07/2024 also came back positive echocard iogram did not show vegetation patient did have JOHN that was negative for any vegetation tissues intact intracardiac pacemaker leads, WBC scan reported negative 5patient currently being treated with naficillin blood culture repeat has been negative so far we will order PICC line and plan for at least 4-day course of IV cefazolin on discharge Dictation was produced using [employer] dictation software. please excuse any grammatical, word or spelling errors. Time with Patient: Less than 30
--- NOTE | 2024-10-13 14:26 | P.DS ---
Providers Date of admission: 10/04/24 19:53 Expected date of discharge: 10/13/24 Attending physician: Riky Brown Consults: 10/04/24 19:52 Consult Physician Routine Consulting Provider: Antonio Gar Consult Reason/Comments: SIRS Do you want consulting provider notified?: Yes 10/09/24 19:25 Consult Physician Routine Consulting Provider: Dennis Fitzgerald Consult Reason/Comments: JOHN, rule out vegetations Do you want consulting provider notified?: Yes Primary care physician: [facility] Course: Chief Complaint: Falls 73-year-old gentleman, follows with Dr. Olivas. Chronic medical conditions include diabetes, hyperlipidemia, depression anxiety, CAD with bypass, cigarette smoker. 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 Patient stated patient yesterday morning started having falls. About 4 5 times. Even bumped his head. Decreased appetite. Noticed above fever. He denies any respiratory urinary symptoms. In the ER was found to have elevated white count and a UA came back to be positive. October 05: Saw the patient this morning overflowing the ER. In a recliner. Tired. Spoke to the nurse. Poor balance. PT OT consulted e. On IV ceftriaxone. Blood cultures come back showing gram-positive cocci in clusters. Per ID vancomycin added. October 06: Had a good breakfast.Awaiting input from PT OT. Blood and urine cultures positive for presumptive Staph aureus. ID following. No fever October 07: Seen by PT OT yesterday. Seems to be unsteady on the feet. May need rehab. Accu-Cheks been running high. Glucotrol added. Blood pressure running on the higher side. Lopressor increased to 50 mg twice daily. Stop IV fluids. Eating fair. Blood culture and urine finalized for MSSA this evening. Antibiotics switched over to IV cefazolin October 08: Rather sleepy. Patient's was Zoloft and Abilify been switched to p.m. On IV cefazolin. Spoke to the nurse to get the patient up in a chair. Replace potassium. Looking into rehab. For blood pressure increase Lopressor to 100 mg twice daily. October 09: Patient Zoloft and Abilify was switched to the p.m. dose. Patient far more awake today. Up in a chair. Getting IV cefazolin. Repeat blood cultures from October 07 positive. Another set of blood cultures ordered. 2D echo unremarkable., No vegetations reported. Eating more than 50%. Right elbow wound is superficial. Bacitracin ointment with dressing October 10: Patient seen this morning. Was pending JOHN. Because of repeated positive blood cultures. Later this afternoon patient underwent a JOHN. No evidence of any vegetations. Done by Dr. Alvarado. Repeat blood cultures from yesterday pending. ID switched over to IV nafcillin. Tolerating diet October 11: Repeat blood cultures pending. Otherwise tolerating diet. Getting antibiotics. On IV nafcillin. Eating fair October 12: Be seen this morning. Repeat cultures still pending. Getting IV nafcillin. Eating fair. Working with PT OT. October 13: Per ID patient to be discharged on IV cefazolin. 2 g Q8 for total of 84 doses. Spoke to [facility] social work administrator. Authorization through. Social history: Lives alone. Smokes about half pack a day for many years. Physical examination: VITAL SIGNS: 97.4, 62, 16, 155 x 78, 94% room air GENERAL: [BMI 24.4, comfortable EYES: Pupils equal. Conjunctiva gia l. HEENT: External appearance of nose and ears normal, oral cavity grossly normal. NECK: JVD not raised; masses not palpable. HEART: First and second heart sounds are normal; no edema. LUNGS: Respiratory rate normal; clear to auscultation. ABDOMEN: Soft, nontender, liver spleen not palpable, no masses palpable. PSYCH: Answering questions. Appropriately MUSCULOSKELETAL:No Clubbing/cyanosis;muscles-grossly intact. Some loss of muscle mass INVESTIGATIONS, reviewed in the clinical context: October 11: White count 11.2 hemoglobin 12.1 platelets 66 potassium 3.3 creatinine 0.7 JOHN [October 10] negative for vegetations 2D echo: Negative for vegetations October 09: Cortisol 16.9 October 05: White count 20.2 hemoglobin 12.4 platelets 425 sodium 127 potassium 3.2 creatinine 0.63 Blood culture: Gram-MSSA. Urine culture: MSSA October 04, 2024: White count 20.6 hemoglobin 12.9 platelets 417 sodium 129 potassium 3.7 bicarb 18 creatinine 0.75 blood glucose 282 Troponin I less than 0.012 Influenza type A, type B, RSV, COVID-19: Not detected UA positive for protein 1+ glucose 4+ ketone 4+ blood moderate urine nitrite positive leukoesterase small WBC 33 CT head cervical spine: Negative for fracture Chest x-ray film personally reviewed by me-some interstitial prominence Assessment and plan: -Acute UTI, with sepsis with blood cultures positive for MSSA.: IV nafcillin. -Sepsis with positive blood cultures: MSSA, likely source bladder: Blood culture positive from October 04 and also from October 07. Repeat blood culture ordered October 09: Pending 2D echo and JOHN: Negative for vegetations IV nafcillin October 10 Per ID patient changed to IV cefazolin 2 g every 8. Total 84 doses. -Diabetes mellitus type 2: On oral hypoglycemic Metformin and Actos. Follow Accu-Cheks Glucotrol 10 mg twice daily -Hyponatremia likely hypovolemia from decreased oral intake: IV fluids. Fluid restriction 2000 cc a day -Hyperlipidemia Lipitor -Essential hypertension, controlled losartan 100 mg nightly Lopressor to 100 mg twice daily -Depression and anxiety Wellbutrin XL, Celexa -Chronic nicotine dependence, cigarette smoker Nicotine patch -Gait dysfunction apparently from previous stroke. PT OT -Full code Disposition: [facility] Past Medical History Past Medical History: Diabetes Mellitus, Hyperlipidemia, Hypertension History of Any Multi-Drug Resistant Organisms: None Reported Past Surgical History: Coronary Bypass/CABG Past Psychological History: No Psychological Hx Reported Smoking Status: Current every day smoker Past Alcohol Use History: None Reported Past Drug Use History: None Reported Plan - Discharge Summary Discharge Rx Participant: No New Discharge Prescriptions: New ceFAZolin [Kefzol] 2 gm IVP Q8HR #84 each No Action buPROPion XL [Wellbutrin XL] 300 mg PO DAILY Rosuvastatin [Crestor] 20 mg PO DAILY metFORMIN HCL [Glucophage] 1,000 mg PO BID-W/MEALS ARIPiprazole [Abilify] 2 mg PO DAILY Pioglitazone [Actos] 30 mg PO DAILY #30 tab Aspirin 81 mg PO DAILY tab Clopidogrel [Plavix] 75 mg PO DAILY #21 tab Temazepam [Restoril] 30 mg PO HS PRN PRN Reason: Insomnia Folic Acid 1 mg PO DAILY Discharge Medication List Rosuvastatin [Crestor] 20 mg PO DAILY 11/12/23 [History] buPROPion XL [Wellbutrin XL] 300 mg PO DAILY 11/12/23 [History] Aspirin 81 mg PO DAILY tab 11/18/23 [Rx] Clopidogrel [Plavix] 75 mg PO DAILY #21 tab 11/18/23 [Rx] Pioglitazone [Actos] 30 mg PO DAILY #30 tab 11/18/23 [Rx] ARIPiprazole [Abilify] 2 mg PO DAILY 10/04/24 [History] Folic Acid 1 mg PO DAILY 10/04/24 [History] Temazepam [Restoril] 30 mg PO HS PRN 10/04/24 [History] metFORMIN HCL [Glucophage] 1,000 mg PO BID-W/MEALS 10/04/24 [History] ceFAZolin [Kefzol] 2 gm IVP Q8HR #84 each 10/13/24 [Rx] Follow up Appointment(s)/Referral(s): Jimmy Olivas MD [Primary Care Provider] - 1-2 days Antonio Gar MD [STAFF PHYSICIAN] - 1 Week Ambulatory/Diagnostic Orders: Basic Metabolic Panel [LAB.AMB] Location: None Selected C Reactive Protein [LAB.AMB] Location: None Selected Complete Blood Count w/diff [LAB.AMB] Location: None Selected Erythrocyte Sedimentation Rate [LAB.AMB] Location: None Selected
[2024-10-13 14:35] VITALS: BP 132/72; PULSE 60; TEMP 99.2
--- NOTE | 2024-10-14 13:55 | CDI ---
Documentation Clarification Form Date: 10/14/2024 01:35:38 PM From: Denisse Skinner Phone: Admit Date: 10/04/2024 07:53:00 PM Patient Name: Bronson Ponce Visit Number: [id number] Discharge Date: 10/13/2024 04:25:00 PM ATTENTION: The Clinical Documentation Specialists (CDI) and [facility] Coding Staff appreciate your assistance in clarifying documentation. Please respond to the clarification below the line at the bottom and electronically sign. The CDI & [facility] Coding staff will review the response and follow-up if needed. Please note: Queries are made part of the Legal Health Record. If you have any questions, please contact the author of this message via ITS. Doctor/Provider: Riky Brown Diabetes mellitus type 2 uncontrolled per H&P and Progress Notes. Additional specificity regarding the diabetes diagnosis is requested. History/Risk Factors: 73yoM, AcuteUTI, withMSSA sepsis, NIDDMII on oralhypoglycemic, HLD, HTN, smoker Clinical indicators: Glucose: 10/04 282 10/05 273 10/06 175- 304 Treatment: Increase metformin to 1000 mg twice daily. Add Actos 30 mg a day Please clarify the type of diabetes, if known: [ + ] Diabetes Type 2 with hyperglycemia [ ] Diabetes Type 2 with hypoglycemia [ ] Other, please specify [ ] Unable to determine (Template Last Revised: September 2020) MTDD
== END 2024-10-13 16:25 | disposition short-term general hospital (02) | DRG 871 ==
LOC: EC 17:02 → 6NMEDSUR 19:52 → OBSVTOIN 19:53 → 6NMEDSUR 20:19
PROVIDERS: ADMIT Hospitalist; ATTEND Hospitalist
PROC: B24BZZ4 Ultrasonography of Heart with Aorta, Transesophageal (ICD-10-PCS; principal; 2024-10-10 10:30)
DX: A41.01 Sepsis due to Methicillin susceptible Staphylococcus aureus (principal); G93.41 Metabolic encephalopathy; E87.1 Hypo-osmolality and hyponatremia; L03.113 Cellulitis of right upper limb; E11.65 Type 2 diabetes mellitus with hyperglycemia; E78.5 Hyperlipidemia, unspecified; I10 Essential (primary) hypertension; F32.A Depression, unspecified; I69.398 Other sequelae of cerebral infarction; N39.0 Urinary tract infection, site not specified; R29.6 Repeated falls; E86.1 Hypovolemia; F41.9 Anxiety disorder, unspecified; I25.10 Atherosclerotic heart disease of native coronary artery without angina pectoris; R26.89 Other abnormalities of gait and mobility; B95.61 Methicillin susceptible Staphylococcus aureus infection as the cause of diseases classified elsewhere; S51.011A Laceration without foreign body of right elbow, initial encounter; F17.210 Nicotine dependence, cigarettes, uncomplicated; W19.XXXA Unspecified fall, initial encounter; Z79.02 Long term (current) use of antithrombotics/antiplatelets; Z79.82 Long term (current) use of aspirin; Z91.81 History of falling; Z79.84 Long term (current) use of oral hypoglycemic drugs; Z79.899 Other long term (current) drug therapy; Z95.1 Presence of aortocoronary bypass graft
CPT/HCPCS: 36415; 36573; 70450; 71045; 72125; 72170; 76770; 78306; 80048; 80053; 81001; 82533; 82565; 83605; 83735; 84484; 85025; 85027; 85652; 86140; 87040; 87070; 87077; 87086; 87186; 87205; 87636; 93005; 93306; 93312; 93320; 93325; 96361; 96365; 96366; 96367; 96372; 96376; 99285